=== PATIENT | male | born 1990 | race Caucasian/White ===

== ENCOUNTER 2018-02-18 15:14 | Emergency (ER) | payer OTHER, MEDICARE, SELFPAY ==
[2018-02-18 15:15] VITALS: BP 136/86; PULSE 75; RESP 18; TEMP 37.1; O2SAT 100; BMI 34.3
--- NOTE | 2018-02-18 16:18 | NURSING ---
triage nurse called [facility] for drug screening, due to this case of possible bed bug bite, no drug test needed per [facility].
--- NOTE | 2018-02-18 16:52 | ED.DCSUM_ITS ---
- ER Visit Summary Date of Service: 02/18/18 Chief Complaint: Bug bite History of Present Illness: The patient is a 27 M presenting for evaluation due to a possible bug bite. 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 Patient states that within the last 24 hours he started to notice a red raised itchy rash on the dorsum of his left foot. Denies any infectious signs or symptoms. Patient's medical history only includes psychiatric disease. Patient denies any history of diabetes or fevers associated with this. Physical Examination: Physical exam unremarkable exam for examination of the left foot. Dorsum of the foot shows approximately a 1 cm circular raised erythematous rash that is blanching and nontender with no evidence of streaking induration or fluctuance. Test Results: None indicated Emergency Department Course and Treatment: Patient presented for evaluation secondary to a rash and concern for bug bite. While this does seem potentially consistent with a bug bite or a bedbug bite, cannot totally be sure. There is no evidence of underlying infection. Patient was recommended on conservative management with cortisone or Benadryl cream. Disposition: Discharge Impression: 1. Bug bite left foot This note was generated with [employer] dictation software. It may contain incorrect words, spelling, and punctuation that were not noted in review of the chart prior to signing ED Disposition - Plan for ED Patient: Disposition: Home or Assisted Living Chief Complaint: Bite Diagnosis: Bug bite Instructions: ED Bite Insect Referrals: [facility] [GROUP OF PHYSICIANS] - As Needed
== END 2018-02-18 17:15 | disposition home or self-care (01) ==
LOC: ED 17:01
PROVIDERS: Emergency Provider Emergency Medicine; Family Provider Family Medicine; PCP Family Medicine
DX: S90.862A Insect bite (nonvenomous), left foot, initial encounter (principal); W57.XXXA Bitten or stung by nonvenomous insect and other nonvenomous arthropods, initial encounter; Y93.9 Activity, unspecified; Y92.008 Other place in unspecified non-institutional (private) residence as the place of occurrence of the external cause; Y99.0 Civilian activity done for income or pay
CPT/HCPCS: 99282

== ENCOUNTER → 2018-05-17 11:26 | Outpatient (CLI) | payer MEDICARE, SELFPAY ==
[2018-05-17 12:13] LABS: Hematocrit 44.4 % (40-54); Mean Corp Hgb Conc 33.8 g/gl (32-36); Mean Corpuscular Hgb 29.8 pg (27.0-32.0); Mean Corpuscular Volume 88.1 fL (80-94); Mean Platelet Vol. 10.2 fl (6.2-12.0); Platelet Count 226 K/mm3 (150-450); RBC Distribution Width CV 12.4 % (11.6-14.6); RBC Distribution Width SD 39.7 fl (35.1-43.9); Red Blood Count 5.04 M/mm3 (4.6-6.2); Scan Indicated on CBC? Y/N NO
[2018-05-17 12:56] LABS: ALB/GLOB Ratio 1.3 RATIO (0.9-2.4); AST(SGOT) 26 U/L (15-37); Alanine Aminotransfer ALT/SGPT 57 U/L (16-61); Albumin, Serum 4.2 g/dL (3.2-5.0); Alkaline Phosphatase 102 U/L (45-117); Anion Gap 5 (5-15); BUN 10 mg/dL (7-18); BUN/Creat Ratio 7.4 RATIO (10-20); Calcium,Total 8.7 mg/dL (8.5-10.1); Chloride 108 mmol/L (98-107); Creatinine, Serum 1.35 mg/dL (0.70-1.30); EST Glomerular Filtration Rate 66 mL/min (>60); Est Glom Filt Rate - Afr Amer 80 mL/min (>60); Globulin 3.3 g/dL (2.2-4.2); Glucose 86 mg/dL (74-106); Potassium 3.7 mmol/L (3.5-5.1); Protein, Total 7.5 g/dL (6.4-8.2); Sodium Level 142 mmol/L (136-145); Thyroid Stim Hormone (TSH) 2.26 uIU/mL (0.358-3.74)
== END ==
PROVIDERS: Family Provider Family Medicine; PCP Family Medicine; Visit Provider Psychiatry & Neurology Psychiatry
DX: Z79.899 Other long term (current) drug therapy (principal)
CPT/HCPCS: 36415; 80053; 80178; 84443; 85027

== ENCOUNTER → 2019-02-02 09:30 | Outpatient (CLI) | payer MEDICARE, SELFPAY ==
[2018-02-23 10:15] VITALS: BMI 34.2
[2019-02-02 11:07] LABS: Albumin, Serum 4.2 g/dL (3.2-5.0); BUN 11 mg/dL (7-18); EST Glomerular Filtration Rate 94 mL/min (>60); Est Glom Filt Rate - Afr Amer 113 mL/min (>60); Glucose 88 mg/dL (74-106); Protein, Total 7.2 g/dL (6.4-8.2)
[2019-02-02 11:08] LABS: ALB/GLOB Ratio 1.4 RATIO (0.9-2.4); AST(SGOT) 25 U/L (15-37); Alanine Aminotransfer ALT/SGPT 47 U/L (16-61); Alkaline Phosphatase 107 U/L (45-117); Anion Gap 7 (5-15); Calcium,Total 8.9 mg/dL (8.5-10.1); Chloride 111 mmol/L (98-107); Potassium 3.8 mmol/L (3.5-5.1); Sodium Level 144 mmol/L (136-145); Thyroid Stim Hormone (TSH) 1.78 uIU/mL (0.358-3.74)
== END ==
PROVIDERS: Family Provider Family Medicine; PCP Family Medicine; Referring Provider Registered Nurse; Visit Provider Registered Nurse
DX: F31.64 Bipolar disorder, current episode mixed, severe, with psychotic features (principal); Z79.899 Other long term (current) drug therapy
CPT/HCPCS: 36415; 80053; 80178; 84443

== ENCOUNTER → 2019-04-25 09:13 | Outpatient (CLI) | payer MEDICARE, SELFPAY ==
[2019-04-25 10:39] LABS: Vitamin D,25 Hydroxy 19.9 ng/mL (29.95-100.01)
[2019-04-25 10:46] LABS: ALB/GLOB Ratio 1.2 RATIO (0.9-2.4); AST(SGOT) 17 U/L (15-37); Alanine Aminotransfer ALT/SGPT 34 U/L (16-61); Alkaline Phosphatase 103 U/L (45-117); Anion Gap 7 (5-15); BUN 13 mg/dL (7-18); BUN/Creat Ratio 13.3 RATIO (10-20); Calcium,Total 9.1 mg/dL (8.5-10.1); Chloride 109 mmol/L (98-107); Creatinine, Serum 0.98 mg/dL (0.70-1.30); EST Glomerular Filtration Rate 96 mL/min (>60); Est Glom Filt Rate - Afr Amer 116 mL/min (>60); Globulin 3.3 g/dL (2.2-4.2); Glucose 91 mg/dL (74-106); Potassium 4.1 mmol/L (3.5-5.1); Protein, Total 7.3 g/dL (6.4-8.2); Sodium Level 142 mmol/L (136-145); Thyroid Stim Hormone (TSH) 2.15 uIU/mL (0.358-3.74)
== END ==
PROVIDERS: Family Provider Family Medicine; PCP Family Medicine; Referring Provider Registered Nurse; Visit Provider Registered Nurse
DX: F31.63 Bipolar disorder, current episode mixed, severe, without psychotic features (principal); Z79.899 Other long term (current) drug therapy
CPT/HCPCS: 36415; 80053; 80178; 82306; 84443

== ENCOUNTER 2019-10-15 18:09 | Emergency (ER) | payer MEDICARE, SELFPAY ==
[2019-10-15 18:10] VITALS: BP 143/80; PULSE 74; RESP 16; TEMP 36.6; O2SAT 99; BMI 35.9
--- NOTE | 2019-10-15 19:47 | ED.VIS.GEN ---
History of Present Illness Informant: Patient Narrative: 29-year-old male presents with dental pain. Patient states that he began to have pain 2 days ago. He states that pain is in his right lower jaw. States that he was told he needs a root canal but is unable to afford it. He states that he will get insurance at the beginning of the year. Has been taking tylenol and ibuprofen without much relief. Denies any fever. <Jun Alfonso - Last Filed: 10/15/19 20:05> <Johnna Woodard - Last Filed: 10/21/19 10:49> Chief Complaint: Dental Past Medical History Smoking Status: Current every day smoker <Jun Alfonso - Last Filed: 10/15/19 20:05> Past Medical History: - - Bipolar disorder Surgical History: noncontributory <Johnna Woodard - Last Filed: 10/21/19 10:49> - Allergies and Home Meds Allergies/Adverse Reactions: Allergies lamotrigine [From Lamictal] Adverse Reaction (Verified 10/15/19 18:11) Rash Primary Care Physician: Seven Hagan DO [Primary Care Provider] - 3-5 Days Review of Systems General: Denies: Chills, Fever Eyes: Denies: Visual changes - bilaterally ENT: Reports: - - Dental pain. Denies: Bilateral ear pain Gastrointestinal: Denies: Nausea, Vomiting Musculoskeletal: Denies: Neck pain <Jun Alfonso - Last Filed: 10/15/19 20:05> Neurological: Denies: Headache Psych: Denies: Depression, Anxiety <Johnna Woodard - Last Filed: 10/21/19 10:49> Physical Exam Vital Signs/Narrative: Vital Signs Temp Pulse Resp BP Pulse Ox 10/15/19 18:10 97.8 F 74 16 143/80 H 99 General: Well nourished, Well developed Head: Normocephalic Eyes: Perrl ENT: - - Patient has a dental carry in his second to last lower posterior right molar. No fluctuance or sign of abscess. No facial swelling Cardiovascular: Regular rate, Regular rhythm Respiratory: No distress, CTA bilaterally Abdomen: Soft, Nontender Skin: Normal color. Negative for: Rash <Jun Alfonso - Last Filed: 10/15/19 20:05> Inital Vital Signs reviewed: Yes ENT: - Psychological: Normal affect. Negative for: Agitated <Johnna Woodard - Last Filed: 10/21/19 10:49> Diagnostic/Tx/Re-eval - Medical Decision Making Patient was evaluated for dental pain. Appears well and nontoxic. Does have a dental carry on his right lower jaw. States that he is been having severe pain has been using Tylenol ibuprofen. Patient will be treated with naproxen and penicillin vk. Informed to stop taking ibuprofen. Offered dental block. Alveolar block was obtained with 3 cc of Marcaine. Patient had some relief of his symptoms. Given multiple dental referrals and prescriptions for naproxen and Pen-Vee K <Jun Alfonso - Last Filed: 10/15/19 20:05> - Medical Decision Making Patient evaluated by myself independent of resident and HPI and ROS performed separately. Agree with above. Patient is presenting with worsening dental pain. No drooling, vocal changes or facial swelling. No signs of Jason's angina or abscess. Dental block performed by Dr. Alfonso and patient started on NSAID and pen VK. Counseled on signs and symptoms requiring return to the ED. Counseled on importance of outpatient follow up. Patient verbalized agreement and understanding with this plan and was discharged home in stable and improved condition. <Johnna Woodard - Last Filed: 10/21/19 10:49> ED Disposition <Jun Alfonso - Last Filed: 10/15/19 20:05> <Johnna Woodard - Last Filed: 10/21/19 10:49> - Plan for ED Patient: Disposition: Home or Assisted Living Diagnosis: Dental caries Instructions: Dental Cavity Prescriptions: Naproxen [Naprosyn] 500 mg PO BID PRN #20 tab Prescription Printed Penicillin Vk [Pen-Vee K 250MG] 500 mg PO 4X/DAY #40 tab Prescription Printed Referrals: Seven Hagan DO [Primary Care Provider] - 3-5 Days
[2019-10-15] MEDS: Penicillin Vk 250 MG Tablet 500 MG PO (19:56)
[2019-10-15 20:17] VITALS: BP 138/77; PULSE 82; RESP 16; O2SAT 97
== END 2019-10-15 20:18 | disposition home or self-care (01) ==
PROVIDERS: Emergency Provider Emergency Medicine; Family Provider Family Medicine; PCP Family Medicine
DX: K02.9 Dental caries, unspecified (principal)
CPT/HCPCS: 99283

== ENCOUNTER → 2020-02-02 09:10 | Outpatient (CLI) | payer MEDICARE, SELFPAY ==
[2020-02-02 10:07] LABS: ALB/GLOB Ratio 1.3 RATIO (0.9-2.4); AST(SGOT) 17 U/L (15-37); Alanine Aminotransfer ALT/SGPT 34 U/L (16-61); Albumin, Serum 4.3 g/dL (3.2-5.0); Alkaline Phosphatase 103 U/L (45-117); Anion Gap 5 (5-15); BUN 14 mg/dL (7-18); BUN/Creat Ratio 13.3 RATIO (10-20); Calcium,Total 9.2 mg/dL (8.5-10.1); Chloride 109 mmol/L (98-107); Creatinine, Serum 1.05 mg/dL (0.70-1.30); EST Glomerular Filtration Rate 88 mL/min (>60); Est Glom Filt Rate - Afr Amer 106 mL/min (>60); Globulin 3.4 g/dL (2.2-4.2); Glucose 91 mg/dL (74-106); Potassium 3.9 mmol/L (3.5-5.1); Protein, Total 7.7 g/dL (6.4-8.2); Sodium Level 140 mmol/L (136-145); Thyroid Stim Hormone (TSH) 1.66 uIU/mL (0.358-3.74)
[2020-02-02 11:03] LABS: Vitamin D,25 Hydroxy 23.9 ng/mL
== END ==
PROVIDERS: PCP Family Medicine; Referring Provider Registered Nurse; Visit Provider Registered Nurse
DX: F31.63 Bipolar disorder, current episode mixed, severe, without psychotic features (principal); E55.9 Vitamin D deficiency, unspecified
CPT/HCPCS: 36415; 80053; 80178; 82306; 84443

== ENCOUNTER → 2020-04-09 10:29 | Outpatient (CLI) | payer MEDICARE, SELFPAY ==
[2020-04-12 17:58] LABS: SAR-COV-2 IGG ANTIBODY Negative (Negative); SAR-COV-2 IGM ANTIBODY Negative (Negative)
== END ==
PROVIDERS: PCP Family Medicine; Referring Provider Family Medicine; Visit Provider Family Medicine
DX: Z20.828 Contact with and (suspected) exposure to other viral communicable diseases (principal)
CPT/HCPCS: 36415; 82784; 86769; G2023

== ENCOUNTER → 2020-04-16 10:20 | Outpatient (CLI) | payer MEDICARE, SELFPAY ==
[2020-04-16 11:18] LABS: Erythrocyte Sedimentation Rate 2 mm/hr (0-15)
[2020-04-16 11:20] LABS: Absolute Lymphocyte Count 1.46 X10^3/uL (0.83-4.51); Absolute Neutrophil Count 6.3 X10^3/uL (2.0-7.7); Basophil# 0.08 X10^3/uL; Basophil% 0.9 % (0-1); Eosinophil# 0.15 X10^3/uL; Eosinophils% 1.8 % (0-5); Hematocrit 43.3 % (40-54); Hemoglobin 14.6 g/dL (13.0-16.5); Lymphocyte # 1.46 X10^3/ul (4.0); Lymphocyte % 17.1 % (19-41); Mean Corp Hgb Conc 33.7 g/dL (32-36); Mean Corpuscular Hgb 29.9 pg (27.0-32.0); Mean Corpuscular Volume 88.7 fL (80-94); Mean Platelet Vol. 10.7 fl (6.2-12.0); Monocyte# 0.38 X10^3/uL; Monocyte% 4.4 % (0-10); NRBC Flagged by Analyzer 0 % (0-5); Neutrophil # 6.33 X10^3/uL (2.7-7.7); Neutrophil % 74.2 % (47-70); Platelet Count 214 K/mm3 (150-450); RBC Distribution Width CV 11.9 % (11.6-14.6); RBC Distribution Width SD 38.5 fl (35.1-43.9); Red Blood Count 4.88 M/mm3 (4.6-6.2); White Blood Count 8.5 K/mm3 (4.4-11.0)
[2020-04-16 11:25] LABS: CRP < 2.90 mg/L (0.0-3.0)
[2020-04-17 20:07] LABS: Endomysial Antibody IgA Negative (Negative)
[2020-04-18 00:39] LABS: Immunoglobulin A 144 mg/dL (90-386); t-Transglutaminase IgA <2 U/mL (0-3)
== END ==
PROVIDERS: PCP Family Medicine; Referring Provider Family Medicine; Visit Provider Family Medicine
DX: R10.9 Unspecified abdominal pain (principal)
CPT/HCPCS: 36415; 82784; 83516; 85025; 85652; 86140; 86255

== ENCOUNTER → 2020-06-18 09:11 | Outpatient (CLI) | payer MEDICARE, SELFPAY ==
[2020-06-18 10:43] LABS: ALB/GLOB Ratio 1.3 RATIO (0.9-2.4); AST(SGOT) 18 U/L (15-37); Alanine Aminotransfer ALT/SGPT 43 U/L (16-61); Albumin, Serum 4.4 g/dL (3.2-5.0); Alkaline Phosphatase 108 U/L (45-117); Anion Gap 4 (5-15); BUN 12 mg/dL (7-18); BUN/Creat Ratio 13.1 RATIO (10-20); Calcium,Total 9.2 mg/dL (8.5-10.1); Chloride 112 mmol/L (98-107); Creatinine, Serum 0.92 mg/dL (0.70-1.30); EST Glomerular Filtration Rate 102 mL/min (>60); Est Glom Filt Rate - Afr Amer 123 mL/min (>60); Globulin 3.4 g/dL (2.2-4.2); Glucose 99 mg/dL (74-106); Potassium 3.8 mmol/L (3.5-5.1); Protein, Total 7.8 g/dL (6.4-8.2); Sodium Level 141 mmol/L (136-145); Thyroid Stim Hormone (TSH) 2.41 uIU/mL (0.358-3.74)
[2020-06-19 13:42] LABS: Vitamin D,25 Hydroxy 50.3 ng/mL
== END ==
PROVIDERS: PCP Family Medicine; Referring Provider Registered Nurse; Visit Provider Registered Nurse
DX: E55.9 Vitamin D deficiency, unspecified (principal); F31.63 Bipolar disorder, current episode mixed, severe, without psychotic features
CPT/HCPCS: 36415; 80053; 80178; 82306; 84443

== ENCOUNTER → 2020-09-13 09:30 | Outpatient (CLI) | payer MEDICARE, SELFPAY | PROVIDERS: PCP Family Medicine; Referring Provider Family Medicine; Visit Provider Family Medicine | DX: Z11.59 Encounter for screening for other viral diseases (principal) | CPT/HCPCS: 87635; C9803; U0003 ==

== ENCOUNTER 2020-09-18 16:32 | Emergency (ER) | payer MEDICARE, SELFPAY ==
[2020-09-18 16:32] VITALS: BP 149/86; PULSE 82; RESP 16; TEMP 36.3; O2SAT 100; BMI 35.9
--- NOTE | 2020-09-18 17:42 | EKG12_ITS ---
Test Reason : CP Blood Pressure : / mmHG Vent. Rate : 075 BPM Atrial Rate : 075 BPM P-R Int : 186 ms QRS Dur : 098 ms QT Int : 380 ms P-R-T Axes : 045 055 050 degrees QTc Int : 424 ms Normal sinus rhythm Normal ECG Confirmed by ML MAYS, SHIREEN ([id number]), metropolitan editor JAZMÍN JASSO ([id number]) on 09/23/2020 12:33:53 PM Referred By: LOUIE Confirmed By:SHIREEN BULL MD
[2020-09-18] MEDS: Aspirin 81 MG TAB.CHEW 324 MG PO (18:25)
--- NOTE | 2020-09-18 18:34 | ED.DCSUM_ITS ---
- ER Visit Summary Date of Service: 09/18/20 Chief Complaint: Chest pain History of Present Illness: The patient is a 30 M who presents with chest pain that has been waxing and waning over the past 2 weeks. Patient states the pain is over the left upper chest area. Patient states nothing makes it better or worse. Patient states at times he feels short of breath. Patient also admits to a cough. Patient denies any nausea or vomiting. Patient denies any diaphoresis. Patient admits to some acid reflux symptoms. Patient also admits to some intermittent lightheadedness and dizziness. Patient states he had a recent Covid test which was negative. Patient denies any cardiac or PE risk factors. Patient states his psychiatrist was concerned that it could possibly be from his lithium. Physical Examination: Vital signs are stable. Patient is afebrile. Patient is in no acute distress. Oral mucosa is pink and moist. Neck is supple. Trachea is midline. There is no JVD noted. Heart was regular rate and rhythm. Lungs are clear and equal bilaterally. Abdomen is soft. Bowel sounds are normal. There is no tenderness. There is no rebound or guarding noted. Skin is warm dry. Cranial nerves II through XII are intact. There are no focal motor or sensory deficits noted. Extremities are intact. There is no calf tenderness or edema. Test Results: EKG shows normal sinus rhythm with a rate of 75. There are no acute ST or T wave changes. This was unchanged compared to previous EKG dated 01/05/2007. CBC, basic metabolic profile, and troponin were obtained and were within normal limits. [place] level was obtained and was therapeutic at 0.8. Emergency Department Course and Treatment: Patient was given aspirin. Patient is feeling better on reevaluation. Patient was advised of his findings. Mor ortega has a HEART score of 1. Patient was advised that this is low risk for acute cardiac event. Patient was instructed to follow-up with his primary care physician in 5 to 7 days. Patient understood and was agreeable with the plan. All questions were answered. Disposition: Discharge home Impression: Chest pain This note was generated with [employer] dictation software. It may contain incorrect words, spelling, and punctuation that were not noted in review of the chart prior to signing ED Disposition - Plan for ED Patient: Disposition: Home or Assisted Living Diagnosis: Chest pain of uncertain etiology Instructions: ED Chest Pain Atypical Unkn Cause Referrals: Seven Hagan DO [Primary Care Provider] - 5-7 Days
[2020-09-18 18:35] VITALS: BP 144/92; PULSE 69; RESP 16; O2SAT 100
--- NOTE | 2020-09-18 18:40 | RAD_ITS ---
STUDY: X-RAY CHEST REASON FOR EXAM: Male, 30 years old. CHEST PAIN X 2 WEEKS TECHNIQUE: Single AP portable view of the chest. COMPARISON: None. FINDINGS: The lungs are clear and expanded. There is no demonstrated pleural abnormality. Normal size heart. Normal mediastinum and phillip. Normal visualized pulmonary arteries. Normal visualized aortic arch and descending thoracic aorta. Normal visualized thoracic spine. Normal visualized ribs, clavicles, and shoulders. There is no demonstrated abnormality of the visualized soft tissue structures of the upper abdomen. RAD/Chest 1 View (Portable) IMPRESSION: Normal x-ray examination of the chest. Electronically Signed: Kallie Suarez MD at 19:08 EDT Tel , Service support ,
[2020-09-18 18:51] LABS: Absolute Lymphocyte Count 2.04 X10^3/uL (0.83-4.51); Absolute Neutrophil Count 6.9 X10^3/uL (2.0-7.7); Basophil# 0.08 X10^3/uL; Basophil% 0.8 % (0-1); Eosinophil# 0.23 X10^3/uL; Eosinophils% 2.3 % (0-5); Hematocrit 41.9 % (40-54); Hemoglobin 14.1 g/dL (13.0-16.5); Lymphocyte # 2.04 X10^3/ul (4.0); Lymphocyte % 20.6 % (19-41); Mean Corp Hgb Conc 33.7 g/dL (32-36); Mean Corpuscular Hgb 30.5 pg (27.0-32.0); Mean Corpuscular Volume 90.7 fL (80-94); Mean Platelet Vol. 10.4 fl (6.2-12.0); Monocyte# 0.59 X10^3/uL; NRBC Flagged by Analyzer 0 % (0-5); Neutrophil # 6.85 X10^3/uL (2.7-7.7); Neutrophil % 69.2 % (47-70); Platelet Count 253 K/mm3 (150-450); RBC Distribution Width CV 11.9 % (11.6-14.6); RBC Distribution Width SD 39.2 fl (35.1-43.9); Red Blood Count 4.62 M/mm3 (4.6-6.2); White Blood Count 9.9 K/mm3 (4.4-11.0)
[2020-09-18 19:23] LABS: Anion Gap 4 (5-15); BUN 9 mg/dL (7-18); BUN/Creat Ratio 8.7 RATIO (10-20); Calcium,Total 8.7 mg/dL (8.5-10.1); Chloride 108 mmol/L (98-107); Creatinine, Serum 1.04 mg/dL (0.70-1.30); EST Glomerular Filtration Rate 88 mL/min (>60); Est Glom Filt Rate - Afr Amer 107 mL/min (>60); Estimated Creatinine Clearance 106.26 ml/min; Glucose 94 mg/dL (74-106); Potassium 3.6 mmol/L (3.5-5.1); Sodium Level 140 mmol/L (136-145)
[2020-09-18 20:10] VITALS: BP 143/84; PULSE 66; RESP 17
[2020-09-18 21:35] VITALS: BP 143/84; PULSE 66; RESP 17; O2SAT 100
== END 2020-09-18 21:36 | disposition home or self-care (01) ==
PROVIDERS: Emergency Provider Emergency Medicine; PCP Family Medicine
DX: R07.9 Chest pain, unspecified (principal); K21.9 Gastro-esophageal reflux disease without esophagitis; R05 Cough; R06.02 Shortness of breath; R42 Dizziness and giddiness
CPT/HCPCS: 71045; 80048; 80178; 84484; 85025; 93005; 99284

== ENCOUNTER → 2021-03-06 09:15 | Outpatient (CLI) | payer MEDICARE, SELFPAY ==
[2021-03-06 10:46] LABS: Vitamin D,25 Hydroxy 24.6 ng/mL
[2021-03-06 11:09] LABS: ALB/GLOB Ratio 1.2 RATIO (0.9-2.4); AST(SGOT) 21 U/L (15-37); Alanine Aminotransfer ALT/SGPT 50 U/L (16-61); Albumin, Serum 4.3 g/dL (3.2-5.0); Alkaline Phosphatase 114 U/L (45-117); Anion Gap 5 (5-15); BUN 11 mg/dL (7-18); BUN/Creat Ratio 10.7 RATIO (10-20); Calcium,Total 9.5 mg/dL (8.5-10.1); Chloride 106 mmol/L (98-107); Creatinine, Serum 1.03 mg/dL (0.70-1.30); EST Glomerular Filtration Rate 89 mL/min (>60); Est Glom Filt Rate - Afr Amer 108 mL/min (>60); Globulin 3.7 g/dL (2.2-4.2); Glucose 87 mg/dL (74-106); Potassium 3.6 mmol/L (3.5-5.1); Sodium Level 138 mmol/L (136-145); Thyroid Stim Hormone (TSH) 1.87 uIU/mL (0.358-3.74)
== END ==
PROVIDERS: PCP Family Medicine; Visit Provider Registered Nurse
DX: F31.63 Bipolar disorder, current episode mixed, severe, without psychotic features (principal); E55.9 Vitamin D deficiency, unspecified; Z79.899 Other long term (current) drug therapy
CPT/HCPCS: 36415; 80053; 80178; 82306; 84443

== ENCOUNTER 2021-06-26 16:53 | Emergency (ER) | payer MEDICARE, SELFPAY ==
[2021-06-26 16:54] VITALS: BP 155/70; PULSE 96; RESP 16; TEMP 36.5; O2SAT 96; BMI 36.6
--- NOTE | 2021-06-26 17:59 | CT_ITS ---
STUDY: CT CERVICAL SPINE WITHOUT CONTRAST REASON FOR EXAM: Male, 31 years old. Trauma RADIATION DOSAGE (If Supplied By Facility): CTDIvol = ( 24.88 ) mGy, DLP = ( 542.23 ) mGycm TECHNIQUE: High resolution transaxial imaging was performed without contrast material. Sagittal and coronal images were reconstructed. Individualized dose optimization techniques were used for this CT. COMPARISON: None FINDINGS: Normal craniovertebral junction. Normal anterior atlantoaxial articulation. Normal odontoid process. Normal cervical lordosis. Normal vertebral bodies and posterior osseous elements. C2-3: Normal endplates. Normal disc height and morphology. Normal central canal and intervertebral neuroforamina. C3-4: Normal endplates. Normal disc height and morphology. Normal central canal and intervertebral neuroforamina. C4-5: Normal endplates. Normal disc height and morphology. Normal central canal and intervertebral neuroforamina. C5-6: Normal endplates. Normal disc height and morphology. Normal central canal and intervertebral neuroforamina. C6-7: Normal endplates. Normal disc height and morphology. Normal central canal and intervertebral neuroforamina. C7-T1: Normal endplates. Normal disc height and morphology. Normal central canal and intervertebral neuroforamina. Normal visualized soft tissue structures. CT/Spine Cervical without Contras IMPRESSION: Normal unenhanced CT examination of the cervical spine. Electronically Signed: Lauro Adair MD at 18:53 EDT , Service support ,
--- NOTE | 2021-06-26 17:59 | EKG12_ITS ---
Test Reason : FALL Blood Pressure : / mmHG Vent. Rate : 093 BPM Atrial Rate : 093 BPM P-R Int : 200 ms QRS Dur : 104 ms QT Int : 372 ms P-R-T Axes : 051 026 060 degrees QTc Int : 462 ms Normal sinus rhythm Nonspecific T wave abnormality Prolonged QT Abnormal ECG Confirmed by JAYLA MAYS, HANNAH ([id number]), editorial clerk JAZMÍN JASSO ([id number]) on 06/30/2021 10:37:27 AM Referred By: LUIS FERNANDO Confirmed By:DAYTON DICKERSON MD
--- NOTE | 2021-06-26 17:59 | CT_ITS ---
STUDY: CT BRAIN WITHOUT CONTRAST REASON FOR EXAM: Male, 31 years old. Trauma RADIATION DOSAGE (If Supplied By Facility): CTDIvol = ( 44.99 ) mGy, DLP = ( 846.43 ) mGycm TECHNIQUE: Transaxial CT imaging of the brain was performed without administration of intravenous contrast material. Individualized dose optimization techniques were used for this CT. COMPARISON: No relevant priors. FINDINGS: Normal soft tissue structures. Normal calvarium. Normal size ventricles and extra-axial spaces for the patient''s age. Normal white matter tracts of the cerebral hemispheres. Normal basal ganglia and thalami. Normal brainstem. Normal cerebellum. There is no intracranial hemorrhage. There are no findings of an acute ischemic infarction. Normal visualized paranasal sinuses. CT/Brain/Head without Contrast IMPRESSION: Normal unenhanced CT scan of the brain. Electronically Signed: Lauro Adair MD at 18:52 EDT , Service support ,
--- NOTE | 2021-06-26 18:01 | EX.ED.GENINJ ---
HPI History of Present Illness Chief Complaint: Fall Narrative Narrative: 31-year-old male presenting for evaluation after a fall that occurred yesterday. He states that yesterday he was walking up stairs in his house and must of slipped and fallen hitting his head on a table. He states he was knocked out for a few seconds to a few minutes. Patient states that he had to crawl down the stairs because he felt out of it. Today he has been vomiting. To the best of his ability he states its been several times. Patient is a poor informant. He states that he was eating CBD Gummies yesterday and ate more than he usually does. He denies eating some today. He denies other drug use. He states that he does not use alcohol. Patient does relate a history of schizoaffective disorder and is on lithium. Patient complains of head and neck pain as well. [facility] Medical History Hemorrhoids Schizoaffective disorder, bipolar type Home Medications lithium citrate 8 meq PO DAILY 11/18/17 [History Last Taken Unknown] aripiprazole 10 mg tablet 10 mg PO QHS 02/23/18 [History Last Taken Unknown] naproxen 500 mg PO BID PRN #20 tab 10/15/19 [Rx Last Taken Unknown] ondansetron HCl [Zofran] 4 mg PO Q8H PRN #14 tab 06/26/21 [Rx Last Taken Unknown] Allergy/AdvReac Type Severity Reaction Status Date / Time lamotrigine [From Lamictal] AdvReac Rash Verified 06/26/21 16:58 Family History Other Mental health problem auto immune disorder Social History Smoking Status: Never smoker alcohol intake: never ROS ROS ED Constitutional Constitutional ED: Denies chills, fever(s) or sweats Eyes Eyes: Denies blurry vision or change in vision ENT ENT ED: Denies ear pain, rhinorrhea or sore throat Cardiovascular Cardiovascular: Denies chest pain or palpitations Respiratory/Chest Respiratory/Chest: Denies cough or dyspnea Gastrointestinal Gastrointestinal: Reports nausea and vomiting; Denies abdominal pain, constipation or diarrhea Genitourinary Genitourinary ED: Denies dysuria or hematuria Musculoskeletal Musculoskeletal: Reports neck pain Integumentary Denies Abrasions or rash Neurologic Neurologic: Reports headache(s); Denies paresthesias Psychiatric Psychiatric: Denies anxiety or depression Endocrine Endocrinology: Denies polydipsia or polyuria EXAM Physical Exam Const Vital Signs: 06/26/21 16:54 06/26/21 16:56 06/26/21 19:06 Temperature 97.7 F L Temperature Source Temporal Pulse Rate 96 95 Respiratory Rate 16 18 Respiratory Effort Normal Respiratory Depth Normal Respiratory Pattern Normal Blood Pressure 155/70 H 130/64 H Blood Pressure Mean 98 86 Pulse Ox 96 95 Oxygen Delivery Method Room Air Room Air 06/26/21 21:14 06/26/21 22:16 Temperature Temperature Source Pulse Rate 86 84 Respiratory Rate 19 H 16 Respiratory Effort Respiratory Depth Respiratory Pattern Blood Pressure 132/72 H 129/70 H Blood Pressure Mean 92 Pulse Ox 94 94 Oxygen Delivery Method Room Air Positive obese General Appearance ED: NAD Nutritional Appearance: obese HEENT Reports TM's clear atraumatic Tympanic Membrane ED: Yes TM's clear Eyes PERRL and EOMs intact bilaterally Neck General: other Tenderness to palpation of the cervical spine as well as bilateral cervical spinal ocular sure without obvious midline deformity or step-off. Patient has decreased range of motion. Resp normal respiratory effort Cardio regular rhythm Rate: regular rate GI normal to inspection, nondistended, normoactive bowel sounds Back/Spine Negative for no thoracic nor lumbar tenderness Extremity normal to inspection and full ROM Neuro oriented x3 and CN's II-XII intact bilaterally Sensorium / Orientation: alert Psych Psych Narrative: Patient is slow to respond but does answer questions appropriately. Skin no rashes or lesions noted and no wounds MDM MDM MDM Narrative Medical decision making narrative: Patient presenting with head and neck pain after mechanical fall in which he states he slipped and struck his head on the occiput and was knocked out for either minutes or seconds. Patient states he awoke and still felt abnormal and was able to crawl down the stairs. Patient is poor informant either secondary to concussion or because he is intoxicated versus high on CBD Gummies. Patient has no focal neurologic deficits on examination. He does have tenderness to the cervical spine. I obtained CT imaging of the brain and cervical spine which were both negative for acute findings. Lab work shows a leukocytosis of 15.8, hemoglobin 13.5, hematocrit 40.1, platelets 244. Renal function and electrolytes are normal. [place] level is therapeutic. EtOH is negative. Coagulation studies are normal. CPK is 42. On reevaluation patient is now complaining of lower back pain. Given that his chest x-ray on my interpretation shows increased pulmonary markings in the left lower lobe I did obtain CT imaging of the chest abdomen and pelvis at this time. The radiologist does comment on the chest x-ray as nonspecific and states it could be edema, infection, pulmonary hematoma. I did obtain CT of the chest, abdomen, pelvis which shows no acute intrathoracic or intra-abdominal abnormalities. Patient has been up and ambulating and has a stable gait. His confusion/vomiting could be from a concussion or from to many CBD Gummies. Patient was given concussion precautions as well as counseled to discontinue use of too many CBD Gummies. Patient clinically stable for discharge home at this time. Impression: 1. Mechanical fall 2. Ingestion of CBD products 3. Concussion 4. Leukocytosis 5. Nausea vomiting Lab Data Attestation: I reviewed the patient's lab results. Labs: Laboratory Results - last 24 hr 06/26/21 06/26/21 06/26/21 18:05 18:05 18:05 WBC 15.8 H RBC 4.49 L Hgb 13.5 Hct 40.1 MCV 89.3 MCH 30.1 MCHC 33.7 RDW Std Deviation 38.2 RDW Coeff of Monalisa 11.9 Plt Count 244 MPV 9.9 Immature Gran % (Auto) 1.500 H Neut % (Auto) 88.6 H Lymph % (Auto) 6.1 L [place] % (Auto) 3.5 Eos % (Auto) 0.0 Baso % (Auto) 0.3 Absolute Neuts (auto) 14.0 H Absolute Lymphs (auto) 0.96 Nucleated RBC % 0 PT INR APTT Sodium 139 Potassium 3.9 Chloride 106 Carbon Dioxide 23.0 Anion Gap 10 BUN 13 Creatinine 1.15 Estim Creat Clear Calc 95.22 Est GFR (MDRD) Af Amer 95 Est GFR (MDRD) Non-Af 78 BUN/Creatinine Ratio 11.3 Glucose 125 H Calcium 8.9 Total Creatine Kinase Urine Color Urine Clarity Urine pH Ur Specific [place] Urine Protein Urine Glucose (UA) Urine Ketones Urine Occult Blood Urine Nitrite Urine Bilirubin Urine Urobilinogen Ur Leukocyte Esterase Urine RBC Urine WBC Ur Squamous Epith Cells Urine Bacteria Urine Mucus Urine Opiates Screen Urine Methadone Screen Ur Barbiturates Screen Ur Phencyclidine Scrn Ur Amphetamines Screen U Methamphetamin-MDMA U Benzodiazepines Scrn [place] 0.70 Urine Cocaine Screen U Cannabinoids Screen Ur Drug Screen Comment Ethyl Alcohol 4.0 06/26/21 06/26/21 06/26/21 18:05 18:10 20:05 WBC RBC Hgb Hct MCV MCH MCHC RDW Std Deviation RDW Coeff of [place] Plt Count MPV Immature Gran % (Auto) Neut % (Auto) Lymph % (Auto) [place] % (Auto) Eos % (Auto) Baso % (Auto) Absolute Neuts (auto) Absolute Lymphs (auto) Nucleated RBC % PT 14.2 INR 1.2 APTT 28.1 Sodium Potassium Chloride Carbon Dioxide Anion Gap BUN Creatinine Estim Creat Clear Calc Est GFR (MDRD) Af Amer Est GFR (MDRD) Non-Af BUN/Creatinine Ratio Glucose Calcium Total Creatine Kinase 42 Urine Color Urine Clarity Urine pH Ur Specific [place] Urine Protein Urine Glucose (UA) Urine Ketones Urine Occult Blood Urine Nitrite Urine Bilirubin Urine Urobilinogen Ur Leukocyte Esterase Urine RBC Urine WBC Ur Squamous Epith Cells Urine Bacteria Urine Mucus Urine Opiates Screen NEGATIVE Urine Methadone Screen NEGATIVE Ur Barbiturates Screen NEGATIVE Ur Phencyclidine Scrn NEGATIVE Ur Amphetamines Screen NEGATIVE U Methamphetamin-MDMA NEGATIVE U Benzodiazepines Scrn NEGATIVE [place] Urine Cocaine Screen NEGATIVE U Cannabinoids Screen POSITIVE H Ur Drug Screen Comment Ethyl Alcohol 06/26/21 20:05 WBC RBC Hgb Hct MCV MCH MCHC RDW Std Deviation RDW Coeff of [place]isa Plt Count MPV Immature Gran % (Auto) Neut % (Auto) Lymph % (Auto) [place] % (Auto) Eos % (Auto) Baso % (Auto) Absolute Neuts (auto) Absolute Lymphs (auto) Nucleated RBC % PT INR APTT Sodium Potassium Chloride Carbon Dioxide Anion Gap BUN Creatinine Estim Creat Clear Calc Est GFR (MDRD) Af Amer Est GFR (MDRD) Non-Af BUN/Creatinine Ratio Glucose Calcium Total Creatine Kinase Urine Color Yellow Urine Clarity Clear Urine pH 7.0 Ur Specific [place] 1.010 Urine Protein 30 H Urine Glucose (UA) Normal Urine Ketones Negative Urine Occult Blood Negative Urine Nitrite Negative Urine Bilirubin Negative Urine Urobilinogen Normal Ur Leukocyte Esterase Negative Urine RBC 0 SEEN Urine WBC 0-5 SEEN Ur Squamous Epith Cells 0 SEEN Urine Bacteria 0 SEEN Urine Mucus 0 SEEN Urine Opiates Screen Urine Methadone Screen Ur Barbiturates Screen Ur Phencyclidine Scrn Ur Amphetamines Screen U Methamphetamin-MDMA U Benzodiazepines Scrn [place] Urine Cocaine Screen U Cannabinoids Screen Ur Drug Screen Comment Ethyl Alcohol Radiography Diagnostic Testing: Radiology Impression Brain CT 06/26/21 17:59 IMPRESSION: Normal unenhanced CT scan of the brain. Electronically Signed: Lauro Adair MD at 18:52 EDT , Service support , Cervical Spine CT 06/26/21 17:59 IMPRESSION: Normal unenhanced CT examination of the cervical spine. Electronically Signed: Lauro Adair MD at 18:53 EDT , Service support , Chest X-Ray 06/26/21 18:15 IMPRESSION: Increased pulmonary markings and left lower lobe are nonspecific consider edema, infection or pulmonary hematoma. Electronically Signed: Maicol Noguera MD at 18:45 EDT Tel , Service support , Chest/Abdomen/Pelvis CT 06/26/21 19:01 IMPRESSION: Negative CT of the chest, abdomen and pelvis with intravenous contrast. Electronically Signed: Lauro Adair MD at 20:03 EDT , Service support , Discharge Plan Triage Chief Complaint: Fall ED Provider: Toy Garcia Dx/Rx/DC Orders Instructions: ED Back Sprain/Strain, ED Concussion, ED Drug Abuse, ED Fall with Uncertain Cause, ED Neck Sprain or Strain Prescriptions: New ondansetron HCl [Zofran] 4 mg tablet 4 mg PO Q8H PRN (Reason: nausea and vomiting) Qty: 14 RF: 0 No Action lithium citrate 8 MEQ/5 ML solution 8 meq PO DAILY RF: 0 aripiprazole 10 mg tablet 10 mg PO QHS RF: 0 naproxen 500 MG tablet 500 mg PO BID PRN Qty: 20 RF: 0 Primary Care Provider: Seven Hagan Referrals: Seven Hagan DO [Primary Care Provider] - Disposition Disposition: Home, Self Care Discharge Date/Time: 06/26/21 22:26
--- NOTE | 2021-06-26 18:15 | RAD_ITS ---
STUDY: X-RAY CHEST REASON FOR EXAM: Male, 31 years old. Trauma TECHNIQUE: Single frontal view of the chest. COMPARISON: 09/18/2020 FINDINGS: The lungs demonstrate mild increased pulmonary markings over the left lower lobe, nonspecific. There is no demonstrated pleural abnormality. Normal size heart. Normal mediastinum and phillip. Normal visualized pulmonary arteries. Normal visualized aortic arch and descending thoracic aorta. Normal visualized thoracic spine. Normal visualized ribs, clavicles, and shoulders. There is no demonstrated abnormality of the visualized soft tissue structures of the upper abdomen. RAD/Chest 1 View (Portable) IMPRESSION: Increased pulmonary markings and left lower lobe are nonspecific consider edema, infection or pulmonary hematoma. Electronically Signed: Maicol Noguera MD at 18:45 EDT Tel , Service support ,
[2021-06-26] MEDS: Ondansetron 4 MG/2 ML Vial IV (18:26)
[2021-06-26 18:31] LABS: International Normalized Ratio 1.2; Prothrombin Time (Protime)PT. 14.2 SECONDS (11.7-14.9)
[2021-06-26 18:32] LABS: Partial Thromboplast Time 28.1 Seconds (24.1-36.2)
[2021-06-26 18:34] LABS: Absolute Lymphocyte Count 0.96 X10^3/uL (0.83-4.51); Basophil# 0.05 X10^3/uL; Basophil% 0.3 % (0-1); Hematocrit 40.1 % (40-54); Hemoglobin 13.5 g/dL (13.0-16.5); Lymphocyte # 0.96 X10^3/ul (0.83-4.51); Lymphocyte % 6.1 % (19-41); Mean Corp Hgb Conc 33.7 g/dL (32-36); Mean Corpuscular Hgb 30.1 pg (27.0-32.0); Mean Corpuscular Volume 89.3 fL (80-94); Mean Platelet Vol. 9.9 fl (6.2-12.0); Monocyte# 0.55 X10^3/uL; Monocyte% 3.5 % (0-10); NRBC Flagged by Analyzer 0 % (0-5); Neutrophil % 88.6 % (47-70); Platelet Count 244 K/mm3 (150-450); RBC Distribution Width CV 11.9 % (11.6-14.6); RBC Distribution Width SD 38.2 fl (35.1-43.9); Red Blood Count 4.49 M/mm3 (4.6-6.2); White Blood Count 15.8 K/mm3 (4.4-11.0)
[2021-06-26 18:39] LABS: CPK Total, Creatine Kinase 42 U/L (39-308)
[2021-06-26 18:50] LABS: Anion Gap 10 (5-15); BUN 13 mg/dL (7-18); BUN/Creat Ratio 11.3 RATIO (10-20); Calcium,Total 8.9 mg/dL (8.5-10.1); Chloride 106 mmol/L (98-107); Creatinine, Serum 1.15 mg/dL (0.70-1.30); EST Glomerular Filtration Rate 78 mL/min (>60); Est Glom Filt Rate - Afr Amer 95 mL/min (>60); Estimated Creatinine Clearance 95.22 ml/min; Glucose 125 mg/dL (74-106); Potassium 3.9 mmol/L (3.5-5.1); Sodium Level 139 mmol/L (136-145)
--- NOTE | 2021-06-26 19:01 | CT_ITS ---
EXAM: CT CHEST, ABDOMEN AND PELVIS WITH INTRAVENOUS CONTRAST CLINICAL INDICATION: Fall TECHNIQUE: Helically acquired images were obtained of the chest, abdomen and pelvis with intravenous contrast. This CT exam was performed using one or more of the following dose reduction techniques: automated exposure control, adjustment of the mA and/or kV according to patient size, and/or use of iterative reconstruction technique. Tipbit report generation technology utilized. CONTRAST: IV 100mL [id number] COMPARISON: None. FINDINGS: CHEST: LUNGS AND PLEURAL SPACES: Unremarkable. No mass. No consolidation or edema. No pleural effusion or thickening. No pneumothorax. HEART: Unremarkable. Heart size is normal. No pericardial effusion. MEDIASTINUM: Unremarkable. No mediastinal or hilar adenopathy. Esophagus is unremarkable. No hiatal hernia. THYROID: Unremarkable. No thyroid lesions. ABDOMEN: LIVER: Unremarkable. Homogeneous. No focal mass. GALLBLADDER AND BILE DUCTS: Unremarkable. No calcified gallstones. No gallbladder distention or wall edema. No intra- or extrahepatic biliary ductal dilation. PANCREAS: Unremarkable. No focal cystic or solid mass. SPLEEN: Unremarkable. Normal size without focal cystic or solid mass. ADRENALS: Unremarkable. No nodules. KIDNEYS AND URETERS: Unremarkable. Normal renal size and position. No hydronephrosis. STOMACH AND BOWEL: Unremarkable. No stomach or bowel distention. No focal inflammatory change. PELVIS: APPENDIX: No evidence of acute appendicitis. BLADDER: Unremarkable. REPRODUCTIVE: Unremarkable as visualized. No mass. CHEST, ABDOMEN and PELVIS: INTRAPERITONEAL SPACE: Unremarkable. No ascites or other fluid collection. No free air. BONES/JOINTS: Unremarkable. No suspicious lytic or blastic abnormality. SOFT TISSUES: Unremarkable. No discrete abdominal or pelvic wall hernia. VASCULATURE: Unremarkable. Aorta is non-dilated. No aortic dissection. No obvious central pulmonary embolism although this study was not performed with the pulmonary embolism protocol. LYMPH NODES: Unremarkable. No enlarged lymph nodes. CT/CT Chest, Abd, Pel w/Contrast IMPRESSION: Negative CT of the chest, abdomen and pelvis with intravenous contrast. Electronically Signed: Lauro Adair MD at 20:03 EDT , Service support ,
[2021-06-26 19:06] VITALS: BP 130/64; PULSE 95; RESP 18; O2SAT 95
[2021-06-26] MEDS: 0.9% Normal Saline 1,000 ML 999 ML IV (19:07)
[2021-06-26 20:30] LABS: Amphetamine Urine VISTA NEGATIVE (<1000 ng/mL); Barbiturate Urine VISTA NEGATIVE (< 200 ng/mL); Benzodiazepine Urine VISTA NEGATIVE (< 200 ng/mL); Cocaine Urine VISTA NEGATIVE (< 300 ng/mL); Ecstacy Urine VISTA NEGATIVE (< 500 ng/mL); Methadone Urine VISTA NEGATIVE (< 300 ng/mL); PCP Urine VISTA NEGATIVE (< 25 ng/mL); THC Urine VISTA POSITIVE (< 50 ng/mL); Vista UDS pH Range 6
[2021-06-26 21:14] VITALS: BP 132/72; PULSE 86; RESP 19; O2SAT 94
[2021-06-26 21:19] LABS: Bacteria 0 SEEN /hpf (None Seen); Mucous, Urine 0 SEEN /hpf (<or=2+); Red Blood Cells-Urine 0 SEEN /hpf (0-5); Squamous Epithelial Cells - UA 0 SEEN /hpf (0-5)
[2021-06-26 21:27] LABS: Color, Urine Yellow (Yellow); Glucose, Dipstick Normal (Normal); Ketone-Dipstick Negative (Negative); Leukocyte Esterase-Dipstick Negative /ul (Negative); Nitrite-Dipstick Negative (Negative); Occult Blood-Urine Negative /ul (Negative); Protein-Dipstick 30 mg/dl (Negative); Urine Bilirubin Dipstick Negative (Negative); Urine Clarity Clear (Clear); Urine Urobilinogen Normal (Normal)
[2021-06-26 21:43] LABS: White Blood Cells 0-5 SEEN /hpf (0-5)
[2021-06-26 22:16] VITALS: BP 129/70; PULSE 84; RESP 16; O2SAT 94
== END 2021-06-26 22:26 | disposition home or self-care (01) ==
PROVIDERS: Emergency Provider Student in an Organized Health Care Education/Training Program; PCP Family Medicine
DX: S06.0X9A Concussion with loss of consciousness of unspecified duration, initial encounter (principal); D72.829 Elevated white blood cell count, unspecified; F25.0 Schizoaffective disorder, bipolar type; T50.995A Adverse effect of other drugs, medicaments and biological substances, initial encounter; W01.0XXA Fall on same level from slipping, tripping and stumbling without subsequent striking against object, initial encounter; Y93.01 Activity, walking, marching and hiking; Z79.899 Other long term (current) drug therapy
CPT/HCPCS: 70450; 71045; 71260; 72125; 74177; 80048; 80178; 80307; 81001; 82077; 82550; 85025; 85610; 85730; 87426; 93005; 96361; 96374; 99285; J7030; Q9967; A4216; J2405

== ENCOUNTER → 2021-08-19 08:34 | Outpatient (CLI) | payer MEDICARE, SELFPAY | PROVIDERS: PCP Family Medicine; Visit Provider Family Medicine | DX: Z03.818 Encounter for observation for suspected exposure to other biological agents ruled out (principal) | CPT/HCPCS: 87635; U0005; U0003 ==

== ENCOUNTER → 2021-10-21 20:06 | Outpatient (CLI) | payer MEDICARE, MEDICAID, SELFPAY | PROVIDERS: PCP Family Medicine; Referring Provider Family Medicine; Visit Provider Family Medicine | DX: G47.33 Obstructive sleep apnea (adult) (pediatric) (principal) | CPT/HCPCS: 95811 ==

== ENCOUNTER 2022-08-06 12:14 | Inpatient (IN) | payer MEDICARE, MEDICAID, SELFPAY ==
[2022-08-06] VITALS (11 sets, daily range): BP systolic 133–156; BP diastolic 77–100; PULSE 106–120; RESP 13–18; TEMP 36.6–37.1; O2SAT 95–100; BMI 37.2; BMI 34.4
--- NOTE | 2022-08-06 12:35 | EKG12_ITS ---
Test Reason : OD Blood Pressure : / mmHG Vent. Rate : 125 BPM Atrial Rate : 125 BPM P-R Int : 144 ms QRS Dur : 096 ms QT Int : 354 ms P-R-T Axes : 000 012 046 degrees QTc Int : 510 ms Sinus tachycardia Otherwise normal ECG Confirmed by SRAVAN MAYS, SARAH ([id number]), editor & co founder JAZMÍN JASSO ([id number]) on 08/10/2022 10:43:29 AM Referred By: SHEREE Confirmed By:SARAH HINSON MD
--- NOTE | 2022-08-06 12:35 | RAD_ITS ---
STUDY: X-RAY CHEST REASON FOR EXAM: Male, 32 years old. Ams TECHNIQUE: Single AP portable view of the chest. COMPARISON: Comparison is made with prior study dated 06/26/2021. FINDINGS: EKG electrodes are seen. Elevation of the right hemidiaphragm. There is no demonstrated pleural abnormality. Normal size heart. Normal mediastinum and phillip. Normal visualized pulmonary arteries. Normal visualized aortic arch and descending thoracic aorta. Normal visualized thoracic spine. Normal visualized ribs, clavicles, and shoulders. There is no demonstrated abnormality of the visualized soft tissue structures of the upper abdomen. RAD/Chest 1 View (Portable) IMPRESSION: Normal x-ray examination of the chest. Electronically Signed: Davian Cook MD at 13:33 EDT ,
--- NOTE | 2022-08-06 12:37 | CT_ITS ---
STUDY: CT CERVICAL SPINE WITHOUT CONTRAST REASON FOR EXAM: Male, 32 years old. Altered mental status. Overdose. RADIATION DOSAGE (If Supplied By Facility): CTDIvol = ( 30.20 ) mGy, DLP = ( 658.14 ) mGycm TECHNIQUE: High resolution transaxial imaging was performed without contrast material. Sagittal and coronal images were reconstructed. Individualized dose optimization techniques were used for this CT. COMPARISON: Comparison is made with prior study dated 06/26/2021. FINDINGS: Normal craniovertebral junction. Normal anterior atlantoaxial articulation. Normal odontoid process. There is straightening of the normal cervical lordosis. Normal vertebral bodies and posterior osseous elements. C2-3: Normal endplates. Normal disc height and morphology. Normal central canal and intervertebral neuroforamina. C3-4: Normal endplates. Normal disc height and morphology. Normal central canal and intervertebral neuroforamina. C4-5: Normal endplates. Normal disc height and morphology. Normal central canal and intervertebral neuroforamina. C5-6: Normal endplates. Normal disc height and morphology. Normal central canal and intervertebral neuroforamina. C6-7: Normal endplates. Normal disc height and morphology. Normal central canal and intervertebral neuroforamina. C7-T1: Normal endplates. Normal disc height and morphology. Normal central canal and intervertebral neuroforamina. Normal visualized soft tissue structures. CT/Spine Cervical without Contras IMPRESSION: Straightening of the normal cervical lordosis. Electronically Signed: Davian Cook MD at 13:32 EDT ,
--- NOTE | 2022-08-06 12:37 | CT_ITS ---
STUDY: CT BRAIN WITHOUT CONTRAST REASON FOR EXAM: Male, 32 years old. Altered mental status. Overdose. RADIATION DOSAGE (If Supplied By Facility): CTDIvol = ( 44.99 ) mGy, DLP = ( 832.67 ) mGycm TECHNIQUE: Transaxial CT imaging of the brain was performed without administration of intravenous contrast material. Individualized dose optimization techniques were used for this CT. COMPARISON: Comparison is made with prior study 06/26/2021. FINDINGS: Normal soft tissue structures. Normal calvarium. Normal size ventricles and extra-axial spaces for the patient''s age. Normal white matter tracts of the cerebral hemispheres. Normal basal ganglia and thalami. Normal brainstem. Normal cerebellum. There is no intracranial hemorrhage. There are no findings of an acute ischemic infarction. Small retention cyst or polyp in the posterior aspect of the base of the right maxillary sinus. CT/Brain/Head without Contrast IMPRESSION: Normal unenhanced CT scan of the brain. Electronically Signed: Davian Cook MD at 13:31 EDT ,
--- NOTE | 2022-08-06 12:37 | EDS_ITS ---
HPI History of Present Illness Chief Complaint: Overdose Narrative Narrative: 32-year-old male presenting with altered mental status. Apparently he did not call or show up for work today police and EMS were sent to his house. He was found confused. It is reported that he ingested his medications to try and kill himself. When I ask him what he took he states I do not know I just took it. Patient is very sleepy and his speech is slurred. He does awaken to voice and answer some questions. He states that he is not in any pain. PFSH [facility] Medical History Depression GERD (gastroesophageal reflux disease) Hemorrhoids High cholesterol Schizoaffective disorder, bipolar type Tonsillectomy planned Home Medications lithium citrate 8 mEq/5 mL (5 mL) oral solution 8 meq PO DAILY 11/18/17 [History Last Taken Unknown] aripiprazole 10 mg tablet 10 mg PO QHS 02/23/18 [History Last Taken Unknown] naproxen 500 mg tablet 500 mg PO BID PRN #20 tabs 10/15/19 [Rx Last Taken Unknown] ondansetron HCl 4 mg tablet (Zofran) 4 mg PO Q8H PRN nausea and vomiting #14 tabs 06/26/21 [Rx Last Taken Unknown] atorvastatin 20 mg tablet 20 mg PO DAILY 08/06/22 [History Last Taken Unknown] quetiapine 100 mg tablet 100 mg PO DAILY 08/06/22 [History Last Taken Unknown] Allergy/AdvReac Type Severity Reaction Status Date / Time lamotrigine [From Lamictal] AdvReac Rash Verified 08/06/22 12:26 Family History Other Mental health problem auto immune disorder Social History Smoking Status: Never smoker alcohol intake: never ROS ROS ED Review of Systems ROS Unobtainable: due to mental status EXAM Physical Exam Const Vital Signs: 08/06/22 12:15 08/06/22 13:26 08/06/22 14:30 Temperature 97.9 F Temperature Source Oral Pulse Rate 114 H 120 H 114 H Respiratory Rate 16 13 14 Blood Pressure 156/97 H 133/100 H 137/79 H Blood Pressure Mean 116 111 98 Pulse Ox 100 99 95 Oxygen Delivery Method Room Air Room Air Positive well nourished and unkempt General Appearance ED: unkempt; Negative for pallor HEENT Reports moist mucous membranes atraumatic Eyes PERRL and EOMs intact bilaterally General Eye ED: Negative for pale conjunctiva or scleral icterus Chest Wall inspection of chest normal and palpation of chest normal Resp normal respiratory effort Auscultation: Negative for rales, rhonchi or wheezes Cardio Rate: tachycardic GI soft to palpation and non-tender Back/Spine Cervical Spine: Negative for cervical spine tenderness Thoracic Spine / Upper Back: Negative for thoracic spinal tenderness Lumbar Spine / Lower Back: Negative for lumbar spinal tenderness Neuro CN's II-XII intact bilaterally Neuro Narrative: Awakens to voice immediately falls back asleep. Speech is slightly slurred. Sensorium / Orientation: confused Psych Appearance: unkempt Skin General Skin Exam: Negative for jaundice or pallor MDM MDM MDM Narrative Medical decision making narrative: Patient presenting with altered mental status and appears to be confused. He is able to awaken to voice and answer questions. His vital signs are stable although he is slightly tachycardic. No evidence of trauma. The patient is missing a new supply of Seroquel of 100 mg p.o. daily and was dispensed 90 of these. There is also #13 400 mg tablets of Seroquel missing. It is unknown if he took anything else. Blood work is obtained as he has a slight leukocytosis of 15.3. Hemoglobin macular stable. Renal function and electrolytes are within normal limits. CPK was 51. This was checked for unknown downtime. Salicylate is 3.8, acetaminophen less than 2.0, lithium less than 3.0, EtOH 10. Urinalysis negative for infection and urine drug screen shows no drugs. Patient does appear to be more sedated on reevaluation. He does appear to be protecting his airway. He still slightly tachycardic. EKG on my interpretation shows sinus tachycardia with ventricular rate of 125 bpm without signs of dysrhythmia or ischemia. His chest x-ray shows no acute cardiopulmonary process and the radiologist does agree. CT brain and CT cervical spine are negative for acute findings. Going to assume at this point that the most likely that he took was Seroquel. I will speak with the hospitalist for admission given that he is altered. I spoke with his mother who states that he has a history of taking some medication before and he came to her and told her that he wanted to go to the hospital. He was admitted to psychiatric facility at . She states he was taken off all of his psychiatric medications at that point and he came home very aggressive because he was only being treated for anxiety. His medications had to be readjusted. He had not expressed to her that he was suicidal. He will eventually need psychiatric evaluation. Impression: 1. Suicide attempt 2. Leukocytosis 3. Altered mental status 4. Tachycardia Lab Data Labs: Laboratory Results - last 24 hr 08/06/22 08/06/22 08/06/22 12:21 12:21 12:21 WBC 15.3 H RBC 4.95 Hgb 14.9 Hct 42.1 MCV 85.1 MCH 30.1 MCHC 35.4 RDW Std Deviation 36.6 RDW Coeff of Monalisa 11.9 Plt Count 188 MPV 10.5 Immature Gran % (Auto) 0.600 Neut % (Auto) 87.9 H Lymph % (Auto) 4.6 L Surry % (Auto) 6.5 Eos % (Auto) 0.1 Baso % (Auto) 0.3 Absolute Neuts (auto) 13.5 H Absolute Lymphs (auto) 0.70 L Nucleated RBC % 0 Sodium 141 Potassium 3.5 Chloride 107 Carbon Dioxide 24.0 Anion Gap 10 BUN 16 Creatinine 1.22 Estim Creat Clear Calc 88.92 Est GFR (MDRD) Af Amer 88 Est GFR (MDRD) Non-Af 73 BUN/Creatinine Ratio 13.1 Glucose 136 H Calcium 10.2 H Total Creatine Kinase 51 Urine Color Urine Clarity Urine pH Ur Specific Concepcion Urine Protein Urine Glucose (UA) Urine Ketones Urine Occult Blood Urine Nitrite Urine Bilirubin Urine Urobilinogen Ur Leukocyte Esterase Urine RBC Urine WBC Ur Squamous Epith Cells Urine Bacteria Urine Mucus Salicylates 3.8 Urine Opiates Screen Urine Methadone Screen Acetaminophen < 2.0 L Ur Barbiturates Screen Ur Phencyclidine Scrn Ur Amphetamines Screen MDMA (Ecstasy) Screen U Benzodiazepines Scrn Lattimer < 0.20 L Urine Cocaine Screen U Cannabinoids Screen Ur Drug Screen Comment Ethyl Alcohol 10.0 08/06/22 08/06/22 13:50 14:30 WBC RBC Hgb Hct MCV MCH MCHC RDW Std Deviation RDW Coeff of Monalisa Plt Count MPV Immature Gran % (Auto) Neut % (Auto) Lymph % (Auto) Surry % (Auto) Eos % (Auto) Baso % (Auto) Absolute Neuts (auto) Absolute Lymphs (auto) Nucleated RBC % Sodium Potassium Chloride Carbon Dioxide Anion Gap BUN Creatinine Estim Creat Clear Calc Est GFR (MDRD) Af Amer Est GFR (MDRD) Non-Af BUN/Creatinine Ratio Glucose Calcium Total Creatine Kinase Urine Color Yellow Urine Clarity Clear Urine pH 6.0 Ur Specific Concepcion 1.015 Urine Protein 15 H Urine Glucose (UA) Normal Urine Ketones 5 H Urine Occult Blood Negative Urine Nitrite Negative Urine Bilirubin Negative Urine Urobilinogen Normal Ur Leukocyte Esterase Negative Urine RBC 0 SEEN Urine WBC 0 SEEN Ur Squamous Epith Cells 0 SEEN Urine Bacteria 0 SEEN Urine Mucus 0 SEEN Salicylates Urine Opiates Screen NEGATIVE Urine Methadone Screen NEGATIVE Acetaminophen Ur Barbiturates Screen NEGATIVE Ur Phencyclidine Scrn NEGATIVE Ur Amphetamines Screen NEGATIVE MDMA (Ecstasy) Screen NEGATIVE U Benzodiazepines Scrn NEGATIVE [place] Urine Cocaine Screen NEGATIVE U Cannabinoids Screen NEGATIVE Ur Drug Screen Comment Ethyl Alcohol Radiography Diagnostic Testing: Clinical Impression(s) from Imaging Studies Chest X-Ray 08/06/22 12:35 IMPRESSION: Normal x-ray examination of the chest. Electronically Signed: Davian Cook MD at 13:33 EDT , Brain CT 08/06/22 12:37 IMPRESSION: Normal unenhanced CT scan of the brain. Electronically Signed: Davian Cook MD at 13:31 EDT , Cervical Spine CT 08/06/22 12:37 IMPRESSION: Straightening of the normal cervical lordosis. Electronically Signed: Davian Cook MD at 13:32 EDT , Discharge Plan Triage Chief Complaint: Overdose ED Provider: Toy Garcia Dx/Rx/DC Orders Prescriptions: No Action lithium citrate 8 MEQ/5 ML solution 8 meq PO DAILY aripiprazole 10 mg tablet 10 mg PO QHS naproxen 500 MG tablet 500 mg PO BID PRN Qty: 20 0RF ondansetron HCl [Zofran] 4 mg tablet 4 mg PO Q8H PRN (Reason: nausea and vomiting) Qty: 14 0RF atorvastatin 20 mg tablet 20 mg PO DAILY quetiapine 100 mg tablet 100 mg PO DAILY Primary Care Provider: Seven Hagan Referrals: Seven Hagan DO [Primary Care Provider] -
[2022-08-06] MEDS: 0.9% Normal Saline 1,000 ML 999 ML IV ×2 (12:43→17:28)
[2022-08-06 12:48] LABS: Absolute Neutrophil Count 13.5 X10^3/uL (2.0-7.7); Basophil# 0.04 X10^3/uL; Basophil% 0.3 % (0-1); Eosinophil# 0.01 X10^3/uL; Eosinophils% 0.1 % (0-5); Hematocrit 42.1 % (40-54); Hemoglobin 14.9 g/dL (13.0-16.5); Lymphocyte % 4.6 % (19-41); Mean Corp Hgb Conc 35.4 g/dL (32-36); Mean Corpuscular Hgb 30.1 pg (27.0-32.0); Mean Corpuscular Volume 85.1 fL (80-94); Mean Platelet Vol. 10.5 fl (6.2-12.0); Monocyte# 0.99 X10^3/uL; Monocyte% 6.5 % (0-10); NRBC Flagged by Analyzer 0 % (0-5); Neutrophil % 87.9 % (47-70); Platelet Count 188 K/mm3 (150-450); RBC Distribution Width CV 11.9 % (11.6-14.6); RBC Distribution Width SD 36.6 fl (35.1-43.9); Red Blood Count 4.95 M/mm3 (4.6-6.2); White Blood Count 15.3 K/mm3 (4.4-11.0)
[2022-08-06 13:07] LABS: Anion Gap 10 (5-15); BUN 16 mg/dL (7-18); BUN/Creat Ratio 13.1 RATIO (10-20); CPK Total, Creatine Kinase 51 U/L (39-308); Calcium,Total 10.2 mg/dL (8.5-10.1); Chloride 107 mmol/L (98-107); Creatinine, Serum 1.22 mg/dL (0.70-1.30); EST Glomerular Filtration Rate 73 mL/min (>60); Est Glom Filt Rate - Afr Amer 88 mL/min (>60); Estimated Creatinine Clearance 88.92 ml/min; Glucose 136 mg/dL (74-106); Potassium 3.5 mmol/L (3.5-5.1); Sodium Level 141 mmol/L (136-145)
[2022-08-06 13:34] LABS: Acetaminophen (Tylenol) Level < 2.0 ug/mL (10.0-30.0); Lithium < 0.20 mmol/L (0.60-1.20); Salicylate 3.8 mg/dL (2.8-20.0)
[2022-08-06 14:06] LABS: Bacteria 0 SEEN /hpf (None Seen); Mucous, Urine 0 SEEN /hpf (<or=2+); Red Blood Cells-Urine 0 SEEN /hpf (0-5); Squamous Epithelial Cells - UA 0 SEEN /hpf (0-5); White Blood Cells 0 SEEN /hpf (0-5)
[2022-08-06 14:07] LABS: Color, Urine Yellow (Yellow); Glucose, Dipstick Normal (Normal); Ketone-Dipstick 5 mg/dl (Negative); Leukocyte Esterase-Dipstick Negative /ul (Negative); Nitrite-Dipstick Negative (Negative); Occult Blood-Urine Negative /ul (Negative); Protein-Dipstick 15 mg/dl (Negative); Specific Gravity, Urine 1.015 (1.002-1.030); Urine Bilirubin Dipstick Negative (Negative); Urine Clarity Clear (Clear); Urine Urobilinogen Normal (Normal)
[2022-08-06 15:00] LABS: Amphetamine Urine VISTA NEGATIVE (<1000 ng/mL); Barbiturate Urine VISTA NEGATIVE (< 200 ng/mL); Benzodiazepine Urine VISTA NEGATIVE (< 200 ng/mL); Cocaine Urine VISTA NEGATIVE (< 300 ng/mL); Ecstacy Urine VISTA NEGATIVE (< 500 ng/mL); Methadone Urine VISTA NEGATIVE (< 300 ng/mL); PCP Urine VISTA NEGATIVE (< 25 ng/mL); THC Urine VISTA NEGATIVE (< 50 ng/mL); Vista UDS pH Range 6
--- NOTE | 2022-08-06 15:14 | HP.PCM.HOS_ITS ---
HPI - General General Date of Admission: 08/06/22 Date of Service: 08/06/22 Chief Complaint: Overdose HPI Narrative The patient is a 32 y/o M w/ PMHx: Asperger status, MADELYN noncompliant with CPAP, Depression and Anxiety/Schizoaffective disorder, HLD, GERD, Obesity who presents to the [facility] ED on 08/06/22 with history of concern for potential overdose of unclear agents reportedly not calling into work or showing up prompting police and EMS to be sent to his house where he was reportedly confused and did admit to attempt to overdose and kill himself prompting transition to the ED where for evaluation. Patient was noted to be very lethargic, sleepy with slurred speech although was noted to awaken to voice and answer some questions. From discussion with mother during his prior episode he was initially taken off of his mood stabilizers and treated for primarily anxiety with severe anger following prompting significant outpatient medication changes and alterations with improvement over time. Work-up in the ED included T97.9, heart rate 114, BP 156/97 with most recent repeat 1 3779, respiratory rate 16, 100% on room air, CBC with WC of 15.3, hemoglobin 14.9, platelet 188 with left shift and lymphopenia, BMP with glucose 136, calcium 10.2 otherwise not marked appearing, creatinine kinase 51, urinalysis unremarkable, urine drug screen with salicylates 2.8, acetaminophen less than 2, lithium less than 2, ethyl alcohol 10 otherwise not marked appearing, SARS COVID antigen negative, chest x-ray with no acute cardiopulmonary findings, CT of the brain with no acute intracranial finding, CT cervical spine with straightening of the normal cervical lordosis. From review of medications patient is missing a new supply of Seroquel 100 mg tablet daily and was reportedly dispensed 90 of these in addition to #13 4 and a milligram tablets of Seroquel missing but unclear if he took these items. In the ED patient ministered 1 L normal saline bolus. [facility] Medical History (Updated 08/06/22 @ 15:[address] Cindy Ramey MD) Depression with anxiety GERD (gastroesophageal reflux disease) High cholesterol History of suicide attempt Obesity MADELYN (obstructive sleep apnea) Schizoaffective disorder, bipolar type Home Medications lithium citrate 8 mEq/5 mL (5 mL) oral solution 8 meq PO DAILY 11/18/17 [History Last Taken Unknown] aripiprazole 10 mg tablet 10 mg PO QHS 02/23/18 [History Last Taken Unknown] naproxen 500 mg tablet 500 mg PO BID PRN #20 tabs 10/15/19 [Rx Last Taken Unknown] ondansetron HCl 4 mg tablet (Zofran) 4 mg PO Q8H PRN nausea and vomiting #14 tabs 06/26/21 [Rx Last Taken Unknown] atorvastatin 20 mg tablet 20 mg PO DAILY 08/06/22 [History Last Taken Unknown] quetiapine 100 mg tablet 100 mg PO DAILY 08/06/22 [History Last Taken Unknown] Allergy/AdvReac Type Severity Reaction Status Date / Time lamotrigine [From Lamictal] AdvReac Rash Verified 08/06/22 12:26 Family History (Updated 08/06/22 @ 15:[address] Cindy Ramey MD) Mother Anxiety and depression Mental health problem Fibromyalgia Father Scleroderma Sclerosing scleroderma Other auto immune disorder Surgical History History of tonsillectomy and adenoidectomy Social History (Updated 08/06/22 @ 15:[address] Cindy Ramey MD) household members: other details: Lives with a roommate. Smoking Status: Never smoker alcohol intake: never substance use type: does not use ROS Review of Systems ROS Unobtainable: due to encephalopathy Vital Signs Vital Signs Vital Signs: 08/06/22 12:15 08/06/22 13:26 08/06/22 14:30 Temperature 97.9 F Temperature Source Oral Pulse Rate 114 H 120 H 114 H Respiratory Rate 16 13 14 Blood Pressure 156/97 H 133/100 H 137/79 H Blood Pressure Mean 116 111 98 Pulse Ox 100 99 95 Oxygen Delivery Method Room Air Room Air Weight Weight: 259 lb 4.218 oz Body Mass Index (BMI) 37.2 Physical Exam Narrative Physical Examination: General: Awakens to stimuli but not alert, falls back asleep quickly, is lethargic, not able to answer any orientation questions, not able to follow commands, laying in the ED bed, snoring. Skin: Normal color, normal turgor, no icterus, no cyanosis. HEENT: AT/NC, EOMI, PERRLA, dry MM, appropriately maintaining his airway, no carotid bruits or JVD noted. Lungs: Diminished, decreased bases, difficult ascertain sounds given loud referred snoring sounds but no obvious rales, ronchi or wheezing. Heart: Mildly tachycardic with regular rhythm; no gallop, rub audible. Abdomen: Soft, obese, NTTP, ND, mildly hyperactive BS, no HSM. Extremities: No cyanosis, clubbing, or edema. Neurological: Awakens to stimuli but not alert, falls back asleep quickly, is lethargic, not able to answer any orientation questions, not able to follow commands, laying in the ED bed, snoring, cognitive function not baseline intact; pupils equally reactive to light and accommodation, cranial nerves difficult to assess given acute presentation with OD lethargy, moving extremities intermittently in the bed, strength accordingly severely globally decreased. Psychiatric: Affect appears flat, lethargic, overdose with suicide attempt with underlying schizoaffective disorder, depression and anxiety. Results Lab / Micro Data Result Diagrams: 08/06/22 12:21 08/06/22 12:21 Labs: Laboratory Results - last 24 hr 08/06/22 12:21: WBC 15.3 H, RBC 4.95, Hgb 14.9, Hct 42.1, MCV 85.1, MCH 30.1, MCHC 35.4, RDW Std Deviation 36.6, RDW Coeff of Monalisa 11.9, Plt Count 188, MPV 10.5, Immature Gran % (Auto) 0.600, Neut % (Auto) 87.9 H, Lymph % (Auto) 4.6 L, [place] % (Auto) 6.5, Eos % (Auto) 0.1, Baso % (Auto) 0.3, Absolute Neuts (auto) 13.5 H, Absolute Lymphs (auto) 0.70 L, Nucleated RBC % 0 08/06/22 12:21: Sodium 141, Potassium 3.5, Chloride 107, Carbon Dioxide 24.0, Anion Gap 10, BUN 16, Creatinine 1.22, Estim Creat Clear Calc 88.92, Est GFR (MDRD) Af Amer 88, Est GFR (MDRD) Non-Af 73, BUN/Creatinine Ratio 13.1, Glucose 136 H, Calcium 10.2 H, Total Creatine Kinase 51 08/06/22 12:21: Salicylates 3.8, Acetaminophen < 2.0 L, [place] < 0.20 L, Ethyl Alcohol 10.0 08/06/22 13:50: Urine Color Yellow, Urine Clarity Clear, Urine pH 6.0, Ur Specific [place] 1.015, Urine Protein 15 H, Urine Glucose (UA) Normal, Urine Ketones 5 H, Urine Occult Blood Negative, Urine Nitrite Negative, Urine Bilirubin Negative, Urine Urobilinogen Normal, Ur Leukocyte Esterase Negative, Urine RBC 0 SEEN, Urine WBC 0 SEEN, Ur Squamous Epith Cells 0 SEEN, Urine Bacteria 0 SEEN, Urine Mucus 0 SEEN 08/06/22 14:30: Urine Opiates Screen NEGATIVE, Urine Methadone Screen NEGATIVE, Ur Barbiturates Screen NEGATIVE, Ur Phencyclidine Scrn NEGATIVE, Ur Amphetamines Screen NEGATIVE, MDMA (Ecstasy) Screen NEGATIVE, U Benzodiazepines Scrn NEGATIVE, Urine Cocaine Screen NEGATIVE, U Cannabinoids Screen NEGATIVE, Ur Drug Screen Comment Micro: Microbiology 08/06/22 13:00 Nasal Secretion SARS-CoV-2 Antigen (Rapid) - Final Radiology Impression Chest X-Ray 08/06/22 12:35 IMPRESSION: Normal x-ray examination of the chest. Electronically Signed: Davian Cook MD at 13:33 EDT , Brain CT 08/06/22 12:37 IMPRESSION: Normal unenhanced CT scan of the brain. Electronically Signed: Davian Cook MD at 13:31 EDT , Cervical Spine CT 08/06/22 12:37 IMPRESSION: Straightening of the normal cervical lordosis. Electronically Signed: Davian Cook MD at 13:32 EDT , Assessment & Plan Assessment/Plan (1) Suicide attempt by substance overdose: PLAN: Plan The patient is a 32 y/o M w/ PMHx: Asperger status, MADELYN non-complaint with CPAP, Depression and Anxiety/Schizoaffective disorder, HLD, GERD, Obesity who presents to the [facility] ED on 08/06/22 with history of concern for potential overdose of unclear agents reportedly not calling into work or showing up prompting police and EMS to be sent to his house where he was reportedly confused and did admit to attempt to overdose and kill himself prompting transition to the ED where for evaluation. #1. Anxiety and Depression/Schizoaffective disorder with Concern Purpose Overdose, Possible High Quantity Seroquel Infection w/ Hx Prior Suicide attempt: Will admit to PCU, add hepatic profile, maintain on telemetry monitoring, continue closely monitor patient for anticholinergic effects for possible Seroquel overdose including constipation, urinary retention, blurred vision, increased confusion or delirium with continued fall and aspiration precautions, maintain n.p.o. status until clinically improving, monitor for extraparametal side effects, maintain on famotidine IV in the interim, monitor for hematological alterations with repeat CBC in a.m. and will defer any chemoprophylaxis given this concern, monitor blood sugars given risk of notable hyperglycemia and will likely need outpatient thyroid function studies once clinically improved given potential significant intake. #2. Elevated BP without HTN diagnosis: Elevated BP in the ED, improved over time, will monitor, currently NPO status but if ongoing evidence HTN then would need oral regimen addition once appropriate, PRN IV hydralazine. #3. Depression and Anxiety/Schizoaffective disorder: Given lethargy will hold all oral medications, will resume once appropriate and able to ascertain the agent of his overdose although at this point appears seroquel. Crisis consultation will be imperative once improved and medically cleared. #4. Hyperlipidemia: Hold statin given unsafe oral intake. Add back statin once appropriate. #5. GERD: IV famotidine. #6. MADELYN: Non-compliant with CPAP. #7. DVT prophylaxis: Low risk and also holding chemoprophylaxis as noted #1. Charges/Coding Visit Charges OBSV E&M: 12969 Initial observation care L3
--- NOTE | 2022-08-06 15:53 | CM.ED ---
Addendum entered by Luz Marina Cano 08/06/22 17:47: SW asked patient's mother about any cutting behavior which she denied. Mother denied any fights with others and denied patient breaking items. Mother denied any HI and said that patient only voices SI about himself. The last time mother was aware that patient was suicidal was in May as she said we haven't talked that much. Mother said that [facility] took patient off his bipolar medication as they thought his symptoms were related to his Aspberger's diagnosis and anxiety. Mother advised that patient has had no previous attempts. Mother reports that patient had only thoughts previous to today. Patient is not awake yet so SW is unable to complete MSE. Patient presents to ED with serious suicide attempt. Per charting patient did attempt to attempt to overdose and kill himself. Thus, patient needs inpatient psych hospital for medication management and crisis stabilization. MD Garcia in agreement with plan for inpatient psych. Plan: Inpatient psych when patient is medically cleared. Luz Marina CabreraGarcia Original Note: WILL Note Referral Source: Referral Reason: Mental Health Presenting Issue: Patient was brought to [facility] ED on 08/06/22 with history of concern for potential overdose of unclear agents reportedly not calling into work or showing up prompting police and EMS to be sent to his house where he was reportedly confused and did admit to attempt to overdose and kill himself prompting transition to the ED where for evaluation. Patient is currently in PCU awaiting medical clearance. This assessment was completed with the assistance of patient's mother, Rosa Delacruz as patient is currently asleep and unable to answer questions Marital Assessment: Single Identified Gender: Male Sexual Orientation: Heterosexual Living Situation: Resides in an upstairs apartment with a roommate Support: Mother reports that patient has pushed us all away.. he has no one now. Mother said that one week ago patient blocked everyone number and he verbally attacked us all. Mother said that in a group text, concerning braden's father who has tonque cancer, patient was ranting and raving. Mother said that patient would take smaller things and blow them up. SW asked for example and mother said that someone else in the family said htat patient was a narcastic and she said well it runs in the family and patient got mad at her for that. : None Education and Employment: Patient graduated high school. He did not have an IEP in school but in grade school he was diagnosed with Asbergers. 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 Mental Health Treatment: Patient [facility] but she does not know if patient is currently seeing a counselor. Per Mother patient was previously hospitalized 2-3 times with the most recent psych hospitalization at [facility] which was in May or June. Mother said that patient had come to her and stated that he may need to stay with her as he thought he may need to go to hospital. Mother said that after awhile patient said that he needed to go to the hospital and said that his plan was to overdose on gabapentin. Patient previously has been to [facility] (1-2 times per mother). Triggers and Stressors: Patient has alot of triggers.. and is very angry per mother. Patient's father has tongue cancer and it is not looking good per patient's mother. Coping Skills: Mother said that patient has no coping skills. Abuse Issues: Denied by mother Substance Abuse: Denied by mother Risk to Self and Others: Mother voiced that patient in the past has stated he was having thoughts of overdosing in May and was brought to the hospital and then went to psych unit at . Mother said that she was worried as patient has blocked her, his brother, his sister, his grandmother, his uncle and all relatives so she had her brother go check on patient today and yesterday. Yesterday when her brother went to check on patient the car was gone and the door locked. Today, the uncle went to check on patient and the door was unlocked and the car was there. She went over to check on patient and found the door locked and was yelling for patient and then was told by neighbor that the squad took him.
[2022-08-06] MEDS: 0.9% Normal Saline 1,000 ML 150 ML IV (17:28)
[2022-08-06] MEDS: Famotidine 200 MG/20 ML MDV 20 MG in 0.9% Normal Saline (Pres. free 8 ML 300 MG IV (18:04)
[2022-08-06 18:21] LABS: Bedside Glucose 75 mg/dL (74-106)
--- NOTE | 2022-08-06 20:23 | CM.ED ---
WILL called Tresa at [facility] and gave her handoff information. WILL will fax assessment information to Tresa at [facility].
[2022-08-06] MEDS: Dextrose 5%/0.9% NaCl 1,000 ML 125 ML IV (22:52)
[2022-08-06 22:55] LABS: Bedside Glucose 50 mg/dL (74-106)
[2022-08-07] VITALS (8 sets, daily range): BP systolic 107–159; BP diastolic 80–98; PULSE 105–117; RESP 16–18; TEMP 36.5–37; O2SAT 97–100
[2022-08-07 00:35] LABS: Bedside Glucose 101 mg/dL (74-106)
[2022-08-07 03:56] LABS: Bedside Glucose 120 mg/dL (74-106)
[2022-08-07] MEDS: Dextrose 5%/0.9% NaCl 1,000 ML 125 ML IV (06:27)
[2022-08-07 06:33] LABS: Absolute Lymphocyte Count 0.79 X10^3/uL (0.83-4.51); Absolute Neutrophil Count 14.9 X10^3/uL (2.0-7.7); Basophil# 0.06 X10^3/uL; Basophil% 0.4 % (0-1); Eosinophil# 0.05 X10^3/uL; Eosinophils% 0.3 % (0-5); Hematocrit 39.7 % (40-54); Hemoglobin 13.3 g/dL (13.0-16.5); Lymphocyte # 0.79 X10^3/ul (0.83-4.51); Lymphocyte % 4.7 % (19-41); Mean Corp Hgb Conc 33.5 g/dL (32-36); Mean Corpuscular Volume 86.7 fL (80-94); Mean Platelet Vol. 10.2 fl (6.2-12.0); Monocyte# 1.01 X10^3/uL; NRBC Flagged by Analyzer 0 % (0-5); Neutrophil # 14.93 X10^3/uL (2.7-7.7); Neutrophil % 87.8 % (47-70); Platelet Count 192 K/mm3 (150-450); RBC Distribution Width CV 12.4 % (11.6-14.6); RBC Distribution Width SD 38.7 fl (35.1-43.9); Red Blood Count 4.58 M/mm3 (4.6-6.2)
[2022-08-07 06:58] LABS: AST(SGOT) 15 U/L (15-37); Alanine Aminotransfer ALT/SGPT 35 U/L (16-61); Albumin, Serum 3.6 g/dL (3.2-5.0); Alkaline Phosphatase 119 U/L (45-117); Anion Gap 4 (5-15); BUN 10 mg/dL (7-18); BUN/Creat Ratio 8.8 RATIO (10-20); Calcium,Total 9.5 mg/dL (8.5-10.1); Chloride 116 mmol/L (98-107); Creatinine, Serum 1.13 mg/dL (0.70-1.30); EST Glomerular Filtration Rate 79 mL/min (>60); Est Glom Filt Rate - Afr Amer 96 mL/min (>60); Estimated Creatinine Clearance 96.01 ml/min; Globulin 3.5 g/dL (2.2-4.2); Glucose 114 mg/dL (74-106); Potassium 3.7 mmol/L (3.5-5.1); Protein, Total 7.1 g/dL (6.4-8.2); Sodium Level 144 mmol/L (136-145)
[2022-08-07 07:05] LABS: Bedside Glucose 107 mg/dL (74-106)
[2022-08-07] MEDS: 0.9% Saline Lock 10 ML Syringe IV ×3 (09:27→22:36)
[2022-08-07] MEDS: Famotidine 200 MG/20 ML MDV 20 MG in 0.9% Normal Saline (Pres. free 8 ML 300 MG IV (09:27)
--- NOTE | 2022-08-07 10:44 | CM.ED ---
Addendum entered by Luz Marina Cano 08/07/22 10:54: WILL called WILL Felix and inquired if patient is medically clear and she advised patient is not medically clear. Elvira can call this movie writer for update and WILL will work on placement. WILL called emily Villaseñor RN. She advised that patient still is very sleepy with slurred speech. Luz Marina FELICIANO Original Note: WILL called Renetta at [facility] and updated her that patient is still waiting medical clearance. Luz Marina FELICIANO
[2022-08-07 11:05] LABS: Bedside Glucose 69 mg/dL (74-106)
--- NOTE | 2022-08-07 12:08 | PCM.PN.HOSP ---
Documented by User: Felicita Nielson NP, [employer] 08/07/22 12:21 Subjective Subjective Patient seen and examined. Alert, answers some questions appropriately however also rambling incoherently. Patient was noted to be restless this morning. He was bladder scanned at that time for 1800 cc and straight cathed. Sitter at bedside and reports patient has been more comfortable since that time. Objective Data Objective Data Vital Signs: Vital Signs Temp Pulse Resp BP Pulse Ox O2 Del Method 97.7 F L 105 H 16 158/98 H 98 Room Air 08/07/22 09:26 08/07/22 09:26 08/07/22 09:26 08/07/22 09:26 08/07/22 09:08/07/22 09:26 Oxygen Delivery Method Room Air Weight: 240 lb 4.862 oz Body Mass Index (BMI) 34.4 Intake & Output: Intake and Output for Last 24 Hours 08/05/22 08/06/22 08/07/22 23:59 23:59 23:59 Intake Total 2832.5 / 2832.5 1317.92 / 1317.92 Output Total 1650 / 1650 4150 / 4150 Balance 1182.5 / 1182.5 -2832.08 / -2832.08 Lab / Micro Data Result Diagrams: 08/07/22 06:16 08/07/22 06:16 Labs: Laboratory Results - last 24 hr 08/06/22 12:21: WBC 15.3 H, RBC 4.95, Hgb 14.9, Hct 42.1, MCV 85.1, MCH 30.1, MCHC 35.4, RDW Std Deviation 36.6, RDW Coeff of Monalisa 11.9, Plt Count 188, MPV 10.5, Immature Gran % (Auto) 0.600, Neut % (Auto) 87.9 H, Lymph % (Auto) 4.6 L, [place] % (Auto) 6.5, Eos % (Auto) 0.1, Baso % (Auto) 0.3, Absolute Neuts (auto) 13.5 H, Absolute Lymphs (auto) 0.70 L, Nucleated RBC % 0 08/06/22 12:21: Sodium 141, Potassium 3.5, Chloride 107, Carbon Dioxide 24.0, Anion Gap 10, BUN 16, Creatinine 1.22, Estim Creat Clear Calc 88.92, Est GFR (MDRD) Af Amer 88, Est GFR (MDRD) Non-Af 73, BUN/Creatinine Ratio 13.1, Glucose 136 H, Calcium 10.2 H, Total Creatine Kinase 51 08/06/22 12:21: Salicylates 3.8, Acetaminophen < 2.0 L, [place] < 0.20 L, Ethyl Alcohol 10.0 08/06/22 13:50: Urine Color Yellow, Urine Clarity Clear, Urine pH 6.0, Ur Specific [place] 1.015, Urine Protein 15 H, Urine Glucose (UA) Normal, Urine Ketones 5 H, Urine Occult Blood Negative, Urine Nitrite Negative, Urine Bilirubin Negative, Urine Urobilinogen Normal, Ur Leukocyte Esterase Negative, Urine RBC 0 SEEN, Urine WBC 0 SEEN, Ur Squamous Epith Cells 0 SEEN, Urine Bacteria 0 SEEN, Urine Mucus 0 SEEN 08/06/22 14:30: Urine Opiates Screen NEGATIVE, Urine Methadone Screen NEGATIVE, Ur Barbiturates Screen NEGATIVE, Ur Phencyclidine Scrn NEGATIVE, Ur Amphetamines Screen NEGATIVE, MDMA (Ecstasy) Screen NEGATIVE, U Benzodiazepines Scrn NEGATIVE, Urine Cocaine Screen NEGATIVE, U Cannabinoids Screen NEGATIVE, Ur Drug Screen Comment 08/06/22 18:00: POC Glucose 75 08/06/22 22:29: POC Glucose 50 L 08/07/22 00:15: POC Glucose 101 08/07/22 03:33: POC Glucose 120 H 08/07/22 06:16: WBC 17.0 H, RBC 4.58 L, Hgb 13.3, Hct 39.7 L, MCV 86.7, MCH 29.0, MCHC 33.5 D, RDW Std Deviation 38.7, RDW Coeff of [place] 12.4, Plt Count 192, MPV 10.2, Immature Gran % (Auto) 0.800, Neut % (Auto) 87.8 H, Lymph % (Auto) 4.7 L, [place] % (Auto) 6.0, Eos % (Auto) 0.3, Baso % (Auto) 0.4, Absolute Neuts (auto) 14.9 H, Absolute Lymphs (auto) 0.79 L, Nucleated RBC % 0 08/07/22 06:16: Sodium 144, Potassium 3.7, Chloride 116 H, Carbon Dioxide 24.0, Anion Gap 4 L, BUN 10, Creatinine 1.13, Estim Creat Clear Calc 96.01, Est GFR (MDRD) Af Amer 96, Est GFR (MDRD) Non-Af 79, BUN/Creatinine Ratio 8.8 L, Glucose 114 H, Calcium 9.5, Total Bilirubin 0.70, AST 15, ALT 35, Alkaline Phosphatase 119 H, Total Protein 7.1, Albumin 3.6, Globulin 3.5, Albumin/Globulin Ratio 1.0 08/07/22 06:26: POC Glucose 107 H 08/07/22 10:48: POC Glucose 69 L Micro: Microbiology 08/06/22 13:00 Nasal Secretion SARS-CoV-2 Antigen (Rapid) - Final Radiography Diagnostic Testing: Radiology Impression Chest X-Ray 08/06/22 12:35 IMPRESSION: Normal x-ray examination of the chest. Electronically Signed: Davian Cook MD at 13:33 EDT , Brain CT 08/06/22 12:37 IMPRESSION: Normal unenhanced CT scan of the brain. Electronically Signed: Davian Cook MD at 13:31 EDT , Cervical Spine CT 08/06/22 12:37 IMPRESSION: Straightening of the normal cervical lordosis. Electronically Signed: Davian Cook MD at 13:32 EDT , Physical Exam Const alert Orientation / Consciousness: confused HEENT normocephalic Mouth: dry mucous membranes Eyes PERRL, EOMs intact bilaterally and conjunctivae normal Neck no lymphadenopathy Resp normal respiratory effort and clear to auscultation bilaterally Cardio regular rate, regular rhythm and no murmurs Peripheral Pulses: pulses 2+ throughout GI normal to inspection, nondistended, normoactive bowel sounds, non-tender and non-distended Extremity normal to inspection Skin no rashes or lesions noted Lesions: no lesions Rashes: no rashes Trauma: no lacerations or abrasions Neuro CN's II-XII intact bilaterally, no focal motor deficits, no sensory deficits noted and deep tendon reflexes 2+ bilaterally Psych Speech: incoherent and pressured Assessment & Plan Assessment/Plan (1) Suicide attempt by substance overdose: PLAN: Plan 1. Altered mental status with concern for intentional overdose-suspected Seroquel overdose. Previous inpatient psychiatric admission at . Plan for crisis/psychiatric evaluation when medically stable. Mental status improving. Brain CT normal. Sitter at bedside for safety. Tox screen negative. [place] level supratherapeutic. 2. Urinary retention-straight cath x1. Likely related to anticholinergic effects from Seroquel overdose. Monitor for ongoing retention. UA unremarkable. 3. Leukocytosis-suspect reactive/overdose related. UA and chest x-ray unremarkable. Afebrile. 4. Elevated blood pressure without history of hypertension-as needed hydralazine. Ongoing blood pressure monitoring. 5. Depression/anxiety/schizoaffective disorder-on aripiprazole, lithium, quetiapine. Hold Seroquel, resume lithium, aripiprazole. 6. Hyperlipidemia-continue statin. 7. MADELYN-noncompliant with CPAP. DVT prophylaxis-SCDs This patient was seen by ETIENNE Talavera under the supervision of Dr. Martin. Documented by User: Dr. Bunny Martin MD 08/07/22 14:15 Objective Data Lab / Micro Data Result Diagrams: 08/07/22 06:16 08/07/22 06:16 Assessment & Plan Assessment/Plan (1) Suicide attempt by substance overdose: Addt'l Comments This patient was seen in conjunction with ETIENNE Talavera . I have independently interviewed and examined the patient and reviewed pertinent historical, laboratory, and other data. Please refer to ETIENNE Talavera note for details of this patient's presentation, findings, and recommendations. I have reviewed ETIENNE Talavera note and concur with documented findings. In brief, patient is a 32-year-old gentleman with schizoaffective disorder admitted following a suicide attempt with an intentional drug overdose (suspected Seroquel) Physical Examination: GENERAL: Somnolent but arousable HEENT: Atraumatic; EYES; Anicteric, Normal Conjunctiva NECK; supple, normal thyroid, RESPIRATORY: Diminished to auscultation CARDIOVASCULAR: Regular S1 S2, GI: soft, normoactive bowel sounds, : No Renal angle tenderness; EXTREMITIES: No edema, no clubbing, MUSCULOSKELETAL: no muscle wasting NEURO: no lateralizing signs. SKIN: No Rash PSYCH; somnolent Assessment: 1. Acute toxic encephalopathy from intentional drug overdose 2. Intentional drug overdose in an apparent suicide attempt 3. Seasonal affective disorder 4. Dyslipidemia 5. Depression with anxiety 6. Elevated blood pressure 7. Class I obesity with BMI 34.5 8. GERD 9. DVT prophylaxis?low risk Recommendations: 1. I have discussed the results of my overview and impressions with the patient 2. Options for management were reviewed Total time spent by myself and the advanced practice practitioner evaluating patient, reviewing labs, subsequent management decisions, discussion with patient as well as other providers 45 minutes ( 25 of which was spent by myself) Charges/Coding Visit Charges Inpatient E&M: 35685 [facility] L3
[2022-08-07 12:16] LABS: Bedside Glucose 112 mg/dL (74-106)
[2022-08-07] MEDS: LORazepam 2 MG/ML Syringe 1 MG IV (15:25)
[2022-08-07] MEDS: Famotidine 200 MG/20 ML MDV 20 MG in 0.9% Normal Saline (Pres. free 8 ML 330 MG IV (22:35)
[2022-08-07] MEDS: ARIPiprazole 10 MG Tablet PO (22:35)
[2022-08-07] MEDS: Atorvastatin Calcium 20 MG Tablet PO (22:35)
[2022-08-08 03:00] VITALS: BP 150/85; PULSE 105; RESP 18; TEMP 36.6; O2SAT 97
[2022-08-08 07:28] VITALS: O2SAT 94
[2022-08-08 08:12] LABS: Absolute Lymphocyte Count 1.57 X10^3/uL (0.83-4.51); Absolute Neutrophil Count 11.6 X10^3/uL (2.0-7.7); Basophil# 0.08 X10^3/uL; Basophil% 0.5 % (0-1); Eosinophil# 0.26 X10^3/uL; Eosinophils% 1.7 % (0-5); Hematocrit 39.3 % (40-54); Hemoglobin 13.6 g/dL (13.0-16.5); Lymphocyte # 1.57 X10^3/ul (0.83-4.51); Lymphocyte % 10.6 % (19-41); Mean Corp Hgb Conc 34.6 g/dL (32-36); Mean Corpuscular Hgb 29.9 pg (27.0-32.0); Mean Corpuscular Volume 86.4 fL (80-94); Mean Platelet Vol. 10.6 fl (6.2-12.0); Monocyte# 1.25 X10^3/uL; Monocyte% 8.4 % (0-10); NRBC Flagged by Analyzer 0 % (0-5); Neutrophil # 11.58 X10^3/uL (2.7-7.7); Neutrophil % 77.9 % (47-70); Platelet Count 226 K/mm3 (150-450); RBC Distribution Width CV 12.6 % (11.6-14.6); RBC Distribution Width SD 39.7 fl (35.1-43.9); Red Blood Count 4.55 M/mm3 (4.6-6.2); White Blood Count 14.9 K/mm3 (4.4-11.0)
[2022-08-08 08:21] LABS: Anion Gap 9 (5-15); BUN 15 mg/dL (7-18); BUN/Creat Ratio 12.8 RATIO (10-20); Calcium,Total 9.8 mg/dL (8.5-10.1); Chloride 112 mmol/L (98-107); Creatinine, Serum 1.17 mg/dL (0.70-1.30); EST Glomerular Filtration Rate 76 mL/min (>60); Est Glom Filt Rate - Afr Amer 92 mL/min (>60); Estimated Creatinine Clearance 92.72 ml/min; Glucose 91 mg/dL (74-106); Potassium 3.7 mmol/L (3.5-5.1); Sodium Level 144 mmol/L (136-145)
[2022-08-08 09:42] VITALS: BP 136/79; PULSE 93; RESP 14; TEMP 37.7; O2SAT 96
--- NOTE | 2022-08-08 10:48 | PN.HOSP_ITS ---
Documented by User: Felicita Nielson NP, [employer] C[employer] FEEDER-C 08/08/22 10:59 Subjective Subjective Patient seen and examined. Mental status significantly improved. Denies current suicidal thoughts or ideations however does admit to taking a bottle of Seroquel. Remove Ro catheter and complete voiding trial. Objective Data Objective Data Vital Signs: Vital Signs Temp Pulse Resp BP Pulse Ox O2 Del Method 100 F H 93 14 136/79 H 96 Room Air 08/08/22 09:42 08/08/22 09:42 08/08/22 09:42 08/08/22 09:42 08/08/22 09:42 08/08/22 09:49 Oxygen Delivery Method Room Air Weight: 240 lb 4.862 oz Body Mass Index (BMI) 34.4 Intake & Output: Intake and Output for Last 24 Hours 08/06/22 08/07/22 08/08/22 23:59 23:59 23:59 Intake Total 2832.5 / 2832.5 2677.92 / 2677.92 Output Total 1650 / 1650 5875 / 7175 1600 / 1600 Balance 1182.5 / 1182.5 -3197.08 / -4497.08 -1600 / -1600 Lab / Micro Data Result Diagrams: 08/08/22 06:46 08/08/22 06:46 Labs: Laboratory Results - last 24 hr 08/07/22 10:48: POC Glucose 69 L 08/07/22 11:55: POC Glucose 112 H 08/08/22 06:46: WBC 14.9 H, RBC 4.55 L, Hgb 13.6, Hct 39.3 L, MCV 86.4, MCH 29.9, MCHC 34.6, RDW Std Deviation 39.7, RDW Coeff of Monalisa 12.6, Plt Count 226, MPV 10.6, Immature Gran % (Auto) 0.900, Neut % (Auto) 77.9 H, Lymph % (Auto) 10.6 L, Price % (Auto) 8.4, Eos % (Auto) 1.7, Baso % (Auto) 0.5, Absolute Neuts (auto) 11.6 H, Absolute Lymphs (auto) 1.57, Nucleated RBC % 0 08/08/22 06:46: Sodium 144, Potassium 3.7, Chloride 112 H, Carbon Dioxide 23.0, Anion Gap 9, BUN 15, Creatinine 1.17, Estim Creat Clear Calc 92.72, Est GFR (MDRD) Af Amer 92, Est GFR (MDRD) Non-Af 76, BUN/Creatinine Ratio 12.8, Glucose 91, Calcium 9.8 Micro: Microbiology 08/06/22 13:00 Nasal Secretion SARS-CoV-2 Antigen (Rapid) - Final Physical Exam Const alert and oriented x3 HEENT normocephalic and moist oral mucous membranes Eyes PERRL, EOMs intact bilaterally and conjunctivae normal Neck no lymphadenopathy Resp normal respiratory effort and clear to auscultation bilaterally Cardio regular rate, regular rhythm and no murmurs Peripheral Pulses: pulses 2+ throughout GI normal to inspection, nondistended, normoactive bowel sounds, non-tender and non-distended Extremity normal to inspection Skin no rashes or lesions noted Lesions: no lesions Rashes: no rashes Trauma: no lacerations or abrasions Neuro CN's II-XII intact bilaterally, no focal motor deficits, no sensory deficits noted and deep tendon reflexes 2+ bilaterally Psych mental status grossly normal and affect normal Assessment & Plan Assessment/Plan (1) Suicide attempt by substance overdose: PLAN: Plan 1.? Altered mental status with intentional overdose-Seroquel overdose.? Previous inpatient psychiatric admission at .? Plan for crisis/psychiatric evaluation now that patient is medically stable.? Patient is now alert and able to participate in conversation. Admits to taking a bottle of Seroquel.? Brain CT normal.? Sitter at bedside for safety.? Tox screen negative.? 2. Urinary retention-Likely related to anticholinergic effects from Seroquel overdose. UA unremarkable. Remove Ro catheter and complete voiding trial. 3. Leukocytosis-suspect reactive/overdose related.? UA and chest x-ray unremarkable.? Afebrile. 4. Elevated blood pressure without history of hypertension-as needed hydralazine.? Blood pressure now stable. 5. Depression/anxiety/schizoaffective disorder-on aripiprazole, quetiapine.? Hold Seroquel, resume aripiprazole. 6. Hyperlipidemia-continue statin. 7. MADELYN-noncompliant with CPAP. DVT prophylaxis-SCDs Discharge planning: Await crisis evaluation/psychiatric placement. This patient was seen by ETIENNE Talavera under the supervision of Dr. Martin. Documented by User: Dr. Bunny Martin MD 08/08/22 11:12 Objective Data Lab / Micro Data Result Diagrams: 08/08/22 06:46 08/08/22 06:46 Assessment & Plan Assessment/Plan (1) Suicide attempt by substance overdose: Addt'l Comments This patient was seen in conjunction with ETIENNE Talavera .? I have independently interviewed and examined the patient and reviewed pertinent historical, laboratory, and other data.? Please refer to ETIENNE Talavera? note for details of this patient's presentation, findings, and recommendations.? I have reviewed? ETIENNE Talavera ? note and concur? with documented findings. In brief, patient is a 32-year-old gentleman with schizoaffective disorder admitted following a suicide attempt with an intentional drug overdose (suspected Seroquel) 08/08/2022; per nursing staff patient has been sleeping a lot Physical Examination: GENERAL: Somnolent but arousable HEENT: Atraumatic; EYES; Anicteric, Normal Conjunctiva NECK; supple, normal thyroid, RESPIRATORY: Diminished to auscultation CARDIOVASCULAR:? Regular S1 S2, GI:? soft, normoactive bowel sounds, : No Renal angle tenderness; EXTREMITIES:? No edema, no clubbing, MUSCULOSKELETAL:? no muscle wasting NEURO:? ? no lateralizing signs. SKIN:? No Rash PSYCH; somnolent Assessment:? 1.? Acute toxic encephalopathy from intentional drug overdose 2.? Intentional drug overdose in an apparent suicide attempt 3.? Seasonal affective disorder 4.? Dyslipidemia 5.? Depression with anxiety 6.? Elevated blood pressure 7.? Class I obesity with BMI 34.5 8.? GERD 9.? DVT prophylaxis?low risk Recommendations: 1.? I have discussed the results of my overview and impressions with the patient 2.? Options for management were reviewed Total time spent by myself and the advanced practice practitioner evaluating patient, reviewing labs, subsequent management decisions, discussion with patient as well as other providers 40 minutes ( 25 of which was spent by myself) Charges/Coding Visit Charges Inpatient E&M: 76477 Subs Hosp L2
--- NOTE | 2022-08-08 11:48 | CASEMGMT ---
SW Note WILL met with patient on this date. Patient said that he is doing alright today. Patient said that he is at the hospital as he swallowed all my pills. SW asked patient if he wanted to and he said yes. Patient said that he has felt suicidal for years and years. He denied any specific trigger. Denies current SI. However, this health underwriter advised that due to patient's serious suicide attempt he needs to go to inpatient psych. Patient verbalized understanding. SW called [facility]. No beds. SW called [facility]. Two beds left but can't guarantee room today. SW called [facility]. They have beds. Referral faxed to [facility]. Will faxed referral to [facility] and [facility] for review. Luz Marina FELICIANO
--- NOTE | 2022-08-08 13:38 | PCM.DC.SUM ---
Documented by User: Felicita Nielson NP, PHARMACY BILLING ADJUDICATOR-C 08/08/22 13:43 Providers Date of Admission: 08/07/22 Date of Discharge: 08/08/22 Primary Care Physician: Dr. Seven Hagan, Reason For Visit: SUICIDE ATTEMPT, OD Diagnosis Discharge Diagnosis (1) Suicide attempt by substance overdose: Status: Acute Code(s): T65.92XA - Toxic effect of unspecified substance, intentional self-harm, initial encounter Medications at Discharge Home Medications aripiprazole 10 mg tablet 10 mg PO QHS 02/23/18 ondansetron HCl 4 mg tablet (Zofran) 4 mg PO Q8H PRN nausea and vomiting #14 tabs 06/26/21 atorvastatin 20 mg tablet 20 mg PO DAILY 08/06/22 quetiapine 100 mg tablet 50 mg PO BREAKFAST 08/06/22 loratadine 10 mg capsule 10 mg PO DAILY 08/07/22 pantoprazole 40 mg tablet,delayed release (Protonix) 40 mg PO DAILY 08/07/22 quetiapine 400 mg tablet,extended release 24 hr 400 mg PO QHS 08/07/22 quetiapine 50 mg tablet 50 mg PO LUNCH 08/07/22 quetiapine 50 mg tablet (Seroquel) 200 mg PO QHS 08/07/22 Hospital Course Operations None Procedures None Summary of Care Provided Hospital Course: Patient is a 32-year-old male admitted 9821 due to overdose. 1.? Altered mental status with intentional overdose-Seroquel overdose.? Previous inpatient psychiatric admission at .? Brain CT normal.? Medically cleared for inpatient psychiatric transfer. 2. Urinary retention-Likely related to anticholinergic effects from Seroquel overdose. UA unremarkable.? Ro removed and patient now voiding without difficulty. 3. Leukocytosis-suspect reactive/overdose related.? UA and chest x-ray unremarkable.? Afebrile. 4. Elevated blood pressure without history of hypertension-as needed hydralazine.? Blood pressure now stable. 5. Depression/anxiety/schizoaffective disorder-on aripiprazole, quetiapine.? Hold Seroquel, resume aripiprazole. 6. Hyperlipidemia-continue statin. 7. MADELYN-noncompliant with CPAP. Physical Exam Const alert and oriented x3 HEENT normocephalic and moist oral mucous membranes Eyes PERRL, EOMs intact bilaterally and conjunctivae normal Neck no lymphadenopathy Resp normal respiratory effort and clear to auscultation bilaterally Cardio regular rate, regular rhythm and no murmurs Peripheral Pulses: pulses 2+ throughout GI normal to inspection, nondistended, normoactive bowel sounds, non-tender and non-distended Extremity normal to inspection Skin no rashes or lesions noted Lesions: no lesions Rashes: no rashes Trauma: no lacerations or abrasions Neuro CN's II-XII intact bilaterally, no focal motor deficits, no sensory deficits noted and deep tendon reflexes 2+ bilaterally Psych mental status grossly normal and affect normal Patient seen and examined prior to discharge. Physical assessment as noted above. This patient was seen by ETIENNE Talavera under the supervision of Dr. Martin. Weight / BMI Weight Weight: 240 lb 4.862 oz Body Mass Index (BMI) 34.4 ABG / Lab / Microbiology Data Result Diagrams: 08/08/22 06:46 08/08/22 06:46 Laboratory: Laboratory Results - last 24 hr 08/08/22 06:46: WBC 14.9 H, RBC 4.55 L, Hgb 13.6, Hct 39.3 L, MCV 86.4, MCH 29.9, MCHC 34.6, RDW Std Deviation 39.7, RDW Coeff of Monalisa 12.6, Plt Count 226, MPV 10.6, Immature Gran % (Auto) 0.900, Neut % (Auto) 77.9 H, Lymph % (Auto) 10.6 L, [place] % (Auto) 8.4, Eos % (Auto) 1.7, Baso % (Auto) 0.5, Absolute Neuts (auto) 11.6 H, Absolute Lymphs (auto) 1.57, Nucleated RBC % 0 08/08/22 06:46: Sodium 144, Potassium 3.7, Chloride 112 H, Carbon Dioxide 23.0, Anion Gap 9, BUN 15, Creatinine 1.17, Estim Creat Clear Calc 92.72, Est GFR (MDRD) Af Amer 92, Est GFR (MDRD) Non-Af 76, BUN/Creatinine Ratio 12.8, Glucose 91, Calcium 9.8 Microbiology: Microbiology 08/06/22 13:00 Nasal Secretion SARS-CoV-2 Antigen (Rapid) - Final Meaningful Use Info Meaningful Use Diagnoses (Choose all that apply): None applicable Discharge Plan Admission Admit Date/Time: 08/07/22 14:50 Primary Reason for Your Visit: Overdose Attending Provider: Bunny Martin Primary Care Provider: Seven Hagan Consulting Providers: Cindy Ramey Discharge Orders/Prescriptions Prescriptions: No Action aripiprazole 10 mg tablet 10 mg PO QHS ondansetron HCl [Zofran] 4 mg tablet 4 mg PO Q8H PRN (Reason: nausea and vomiting) Qty: 14 0RF atorvastatin 20 mg tablet 20 mg PO DAILY quetiapine 100 mg tablet 50 mg PO BREAKFAST pantoprazole [Protonix] 40 mg Tablet,Delayed Release (Dr/Ec) 40 mg PO DAILY quetiapine 50 mg Tablet 50 mg PO LUNCH quetiapine [Seroquel] 50 mg Tablet 200 mg PO QHS quetiapine 400 mg Tablet Extended Release 24 Hr 400 mg PO QHS loratadine 10 mg Capsule 10 mg PO DAILY Referrals / Follow Up: Seven Hagan, [Primary Care Provider] - Disposition Disposition (needs filled in before D/C Order can be placed): Psychiatric Hospital or Unit Hospital Course Summary of Care Provided Hospital Course: This patient was seen in conjunction with ETIENNE Talavera .? I have independently interviewed and examined the patient and reviewed pertinent historical, laboratory, and other data.? Please refer to ETIENNE Talavera? note for details of this patient's presentation, findings, and recommendations.? I have reviewed? ETIENNE Talavera ? note and concur? with documented findings. In brief, patient is a 32-year-old gentleman with schizoaffective disorder admitted following a suicide attempt with an intentional drug overdose (suspected Seroquel) 08/08/2022; per nursing staff patient has been sleeping a lot Physical Examination: GENERAL: Somnolent but arousable HEENT: Atraumatic; EYES; Anicteric, Normal Conjunctiva NECK; supple, normal thyroid, RESPIRATORY: Diminished to auscultation CARDIOVASCULAR:? Regular S1 S2, GI:? soft, normoactive bowel sounds, : No Renal angle tenderness; EXTREMITIES:? No edema, no clubbing, MUSCULOSKELETAL:? no muscle wasting NEURO:? ? no lateralizing signs. SKIN:? No Rash PSYCH; somnolent Assessment:? 1.? Acute toxic encephalopathy from intentional drug overdose 2.? Intentional drug overdose in an apparent suicide attempt 3.? Seasonal affective disorder 4.? Dyslipidemia 5.? Depression with anxiety 6.? Elevated blood pressure 7.? Class I obesity with BMI 34.5 8.? GERD 9.? DVT prophylaxis?low risk Hospital course; as documented above Total time spent by myself and the advanced practice practitioner evaluating patient, reviewing labs, subsequent management decisions, discussion with patient as well as other providers 45 minutes ( 25 of which was spent by myself) Documented by User: Dr. Bunny Martin MD 08/08/22 14:53 Providers Date of Admission: 08/07/22 Reason For Visit: SUICIDE ATTEMPT, OD Diagnosis Discharge Diagnosis (1) Suicide attempt by substance overdose: Status: Acute Code(s): T65.92XA - Toxic effect of unspecified substance, intentional self-harm, initial encounter Medications at Discharge Home Medications aripiprazole 10 mg tablet 10 mg PO QHS 02/23/18 ondansetron HCl 4 mg tablet (Zofran) 4 mg PO Q8H PRN nausea and vomiting #14 tabs 06/26/21 atorvastatin 20 mg tablet 20 mg PO DAILY 08/06/22 quetiapine 100 mg tablet 50 mg PO BREAKFAST 08/06/22 loratadine 10 mg capsule 10 mg PO DAILY 08/07/22 pantoprazole 40 mg tablet,delayed release (Protonix) 40 mg PO DAILY 08/07/22 quetiapine 400 mg tablet,extended release 24 hr 400 mg PO QHS 08/07/22 quetiapine 50 mg tablet 50 mg PO LUNCH 08/07/22 quetiapine 50 mg tablet (Seroquel) 200 mg PO QHS 08/07/22 Hospital Course Operations None Procedures None Summary of Care Provided Minutes Spent on Discharge: 45 ABG / Lab / Microbiology Data Result Diagrams: 08/08/22 06:46 08/08/22 06:46 Discharge Plan Admission Admit Date/Time: 08/07/22 14:50 Primary Reason for Your Visit: Overdose Attending Provider: Bunny Martin Primary Care Provider: Seven Hagan Consulting Providers: Cindy Ramey Discharge Orders/Prescriptions Prescriptions: No Action aripiprazole 10 mg tablet 10 mg PO QHS ondansetron HCl [Zofran] 4 mg tablet 4 mg PO Q8H PRN (Reason: nausea and vomiting) Qty: 14 0RF atorvastatin 20 mg tablet 20 mg PO DAILY quetiapine 100 mg tablet 50 mg PO BREAKFAST pantoprazole [Protonix] 40 mg Tablet,Delayed Release (Dr/Ec) 40 mg PO DAILY quetiapine 50 mg Tablet 50 mg PO LUNCH quetiapine [Seroquel] 50 mg Tablet 200 mg PO QHS quetiapine 400 mg Tablet Extended Release 24 Hr 400 mg PO QHS loratadine 10 mg Capsule 10 mg PO DAILY Referrals / Follow Up: Seven Hagan DO [Primary Care Provider] - Disposition Disposition (needs filled in before D/C Order can be placed): Psychiatric Hospital or Unit Charges/Coding Visit Charges Inpatient E&M: 38520 Disch Hosp Hospital Course Operations None Procedures Procedures: None Summary of Care Provided Hospital Course: This patient was seen in conjunction with ETIENNE Talavera .? I have independently interviewed and examined the patient and reviewed pertinent historical, laboratory, and other data.? Please refer to ETIENNE Talavera? note for details of this patient's presentation, findings, and recommendations.? I have reviewed? ETIENNE Talavera ? note and concur? with documented findings. In brief, patient is a 32-year-old gentleman with schizoaffective disorder admitted following a suicide attempt with an intentional drug overdose (suspected Seroquel) 08/08/2022; per nursing staff patient has been sleeping a lot Physical Examination: GENERAL: Somnolent but arousable HEENT: Atraumatic; EYES; Anicteric, Normal Conjunctiva NECK; supple, normal thyroid, RESPIRATORY: Diminished to auscultation CARDIOVASCULAR:? Regular S1 S2, GI:? soft, normoactive bowel sounds, : No Renal angle tenderness; EXTREMITIES:? No edema, no clubbing, MUSCULOSKELETAL:? no muscle wasting NEURO:? ? no lateralizing signs. SKIN:? No Rash PSYCH; somnolent Assessment:? 1.? Acute toxic encephalopathy from intentional drug overdose 2.? Intentional drug overdose in an apparent suicide attempt 3.? Seasonal affective disorder 4.? Dyslipidemia 5.? Depression with anxiety 6.? Elevated blood pressure 7.? Class I obesity with BMI 34.5 8.? GERD 9.? DVT prophylaxis?low risk Hospital course; as documented above Total time spent by myself and the advanced practice practitioner evaluating patient, reviewing labs, subsequent management decisions, discussion with patient as well as other providers 45 minutes ( 25 of which was spent by myself)
--- NOTE | 2022-08-08 13:58 | NURSING ---
report called to nurse Bailey Friend [place] [address] [phone] Alcaraz
--- NOTE | 2022-08-08 15:15 | CM.ED ---
[facility] called repeatedly for clarification on patient's medical condition. WILL spoke to Charley from [facility] and the leaf conditioner Lucia also talked to Charley. Charley called and left voice mail that [facility] declined. [facility] declined as they had no beds. [facility] accepted per leaf conditioner Lucia. Accepting MD is Dr. Alcaraz. He is going to [address] and the RN to RN is [phone], community youth secretary will arrange for transport. SW was advised patient' last picker is at 4pm. SW spoke to patient and his mother. All questions were answered. Sw discussed that patient is going to [facility] for treatment. Family had questions about the pink slip. SW also discussed the PHP/IOP program possibly at discharge. SW provided information on PHP/IOP. WILL advised that transport is scheduled for 4pm. Plan: [facility] FELICIANO
[2022-08-08 15:26] VITALS: BP 137/93; PULSE 100; RESP 15; TEMP 36.9; O2SAT 96
--- NOTE | 2022-08-09 00:52 | ED.RN ---
[facility] CALLED TO CHECK TO SEE IF PATIENT STILL NEEDING ROOM. MADE AWARE PATIENT WAS TRANSFERRED TO ANOTHER HOSPITAL
== END 2022-08-08 17:04 | DRG 917 ==
LOC: ED 15:20 → PCU 15:36
PROVIDERS: Nurse Practitioner Family; Admitting Provider Family Medicine; Emergency Provider Student in an Organized Health Care Education/Training Program; PCP Family Medicine; Visit Provider Internal Medicine
DX: T44.3X4A Poisoning by other parasympatholytics [anticholinergics and antimuscarinics] and spasmolytics, undetermined, initial encounter (principal); G92.9 Unspecified toxic encephalopathy; F84.5 Asperger's syndrome; F25.0 Schizoaffective disorder, bipolar type; T14.91XA Suicide attempt, initial encounter; T50.902A Poisoning by unspecified drugs, medicaments and biological substances, intentional self-harm, initial encounter; E78.00 Pure hypercholesterolemia, unspecified; F41.8 Other specified anxiety disorders; G47.33 Obstructive sleep apnea (adult) (pediatric); K21.9 Gastro-esophageal reflux disease without esophagitis; E78.5 Hyperlipidemia, unspecified; E66.9 Obesity, unspecified; Z68.34 Body mass index [BMI] 34.0-34.9, adult; R03.0 Elevated blood-pressure reading, without diagnosis of hypertension; R33.9 Retention of urine, unspecified; Z91.19 Patient's noncompliance with other medical treatment and regimen
CPT/HCPCS: 36415; 70450; 71045; 72125; 80048; 80053; 80178; 80307; 80329; 81001; 82077; 82550; 82962; 85025; 87811; 93005; 99285; J7030; A4216; G0480; J3490

== ENCOUNTER 2022-08-26 06:23 | Emergency (ER) | payer MEDICARE, MEDICAID, SELFPAY ==
[2022-08-26 06:27] VITALS: BP 158/92; PULSE 93; RESP 18; TEMP 36.3; O2SAT 98; BMI 38.0
--- NOTE | 2022-08-26 06:39 | EDS_ITS ---
HPI History of Present Illness Chief Complaint: Rash Informant: patient Onset/Context/Timing Onset: Yesterday Context: Gradual Onset Timing: Continuous Quality: red, pruritic, some burning Location: all 4 ext's Current Severity: Severe (itchy) Maximum Severity: Severe (itchy) Worsened by: touching affected areas Relieved by: scratching, benadryl Associated Symptoms Associated Symptoms: no other new sx Narrative Narrative: Patient states he was just started on Tegretol yesterday as a mood stabilizer, yesterday he took the first dose. Subsequently started breaking out in red very itchy areas on all 4 extremities. States he has a history of getting dyspneic with exertion, that is not new or worse now, he states because of this history he specifically did not walk up the hill here because I know I would pass out. [facility] Medical History Depression with anxiety GERD (gastroesophageal reflux disease) High cholesterol History of suicide attempt Obesity MADELYN (obstructive sleep apnea) Schizoaffective disorder, bipolar type Suicide attempt by substance overdose Home Medications prednisone 20 mg tablet 40 mg PO DAILY #4 TABLETS 08/26/22 [Rx Last Taken Unknown] Allergy/AdvReac Type Severity Reaction Status Date / Time lamotrigine [From Lamictal] AdvReac Rash Verified 08/26/22 06:25 Family History (Updated 08/06/22 @ 15:[address] Cindy Ramey MD) Mother Anxiety and depression Mental health problem Fibromyalgia Father Scleroderma Sclerosing scleroderma Other auto immune disorder Surgical History History of tonsillectomy and adenoidectomy Social History household members: other details: Lives with a roommate. Smoking Status: Never smoker alcohol intake: never substance use type: does not use ROS ROS ED Constitutional Constitutional ED: Denies chills or fever(s) Eyes Eyes: Denies change in vision or diplopia ENT ENT ED: Denies rhinorrhea or sore throat Cardiovascular Cardiovascular: Denies chest pain or palpitations Respiratory/Chest Respiratory/Chest: Reports dyspnea on exertion; Denies cough Gastrointestinal Gastrointestinal: Denies abdominal pain, diarrhea, nausea or vomiting Genitourinary Genitourinary ED: Denies dysuria or hematuria Musculoskeletal Musculoskeletal: Denies back pain or neck pain Integumentary Reports erythema, pruritus and rash; Denies abscess Neurologic Neurologic: Denies headache(s), paresthesias or weakness Psychiatric Psychiatric: Denies anxiety or suicidal thoughts EXAM Physical Exam Const Vital Signs: 08/26/22 06:27 Temperature 97.4 F L Temperature Source Temporal Pulse Rate 93 Respiratory Rate 18 Blood Pressure 158/92 H Blood Pressure Mean 114 Pulse Ox 98 Oxygen Delivery Method Room Air Positive well nourished and well developed General Appearance ED: well developed and NAD HEENT Reports moist mucous membranes HEENT Narrative: No oral mucosal lesions normocephalic and atraumatic Eyes PERRL and EOMs intact bilaterally Neck full ROM and supple Resp normal respiratory effort and clear to auscultation bilaterally Cardio regular rate, regular rhythm and no murmurs Rate: Negative for tachycardic Back/Spine no CVA tenderness General Back: other FROM Extremity Extremity Narrative: Erythematous areas of skin, otherwise normal inspection General Extremety ED: Negative for edema, pulses abnormal or tenderness General Extremity: Negative for edema or pulses abnormal Neuro oriented x3, CN's II-XII intact bilaterally and no sensory deficits noted Sensorium / Orientation: awake and alert Motor Exam: strength 5/5 throughout Psych Psych Narrative: Odd affect. Pressured speech at times. Skin no wounds Skin Narrative: Scattered areas of erythema, on the legs it is medial aspect of both knees, anterior and medial ankles, with normal range of motion of these joints. On upper extremities it is from the wrist all the way down the forearms and beyond the elbows. Erythema, mildly warm, no tenderness anywhere. Patient states when you touch it it makes me want to scratch at it. No bullae, petechia, purpura, no edema. Not raised. MDM MDM MDM Narrative Medical decision making narrative: Suspect this is a reaction due to the carbamazepine he just started. I am going to place him on just a couple days of prednisone and give him some more Benadryl here, he last took it last night and it helped transiently. Will advise he discontinue the medication and discuss with his prescribing physician regarding a replacement. He is in agreement with this. Discharge Plan Triage Chief Complaint: Rash ED Provider: Blaise Stanton Dx/Rx/DC Orders Clinical Impression: Allergic drug reaction Instructions: ED Drug Reaction, Other Prescriptions: New prednisone 20 MG tablet 40 mg PO DAILY Qty: 4 0RF Rx Instructions: start 08/27 Discontinued carbamazepine [Tegretol] 200 mg Tablet 200 mg PO QHS Primary Care Provider: Seven Hagan Referrals: Seven Hagan DO [Primary Care Provider] - As soon as possible Disposition Disposition: Home, Self Care
[2022-08-26] MEDS: DiphenhydrAMINE 25 MG Capsule 50 MG PO (06:48)
[2022-08-26] MEDS: predniSONE 20 MG Tablet 40 MG PO (06:49)
[2022-08-26 06:50] VITALS: BP 162/94; PULSE 97; RESP 16; O2SAT 100
== END 2022-08-26 07:12 | disposition home or self-care (01) ==
PROVIDERS: Emergency Provider Emergency Medicine; PCP Family Medicine; Visit Provider Emergency Medicine
DX: T78.40XA Allergy, unspecified, initial encounter (principal); F25.0 Schizoaffective disorder, bipolar type; E78.00 Pure hypercholesterolemia, unspecified; G47.33 Obstructive sleep apnea (adult) (pediatric); K21.9 Gastro-esophageal reflux disease without esophagitis
CPT/HCPCS: 99284

== ENCOUNTER 2022-09-03 05:44 | Emergency (ER) | payer MEDICARE, MEDICAID, SELFPAY ==
[2022-09-03 05:45] VITALS: BP 174/111; PULSE 120; RESP 18; TEMP 36.3; O2SAT 94; BMI 32.2
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
[2022-09-03] MEDS: Ziprasidone IM 20 MG/ML VIAL IM (06:07)
--- NOTE | 2022-09-03 06:08 | ED.RN ---
Pt yelling while RNs attempting to get blood work. Pt resistant to needle stick. Pt vomiting purple colored vomit while laying down, refusing to sit up. Then patient vomits on the floor, patient refusing to clean himself up. medicated per MAR
--- NOTE | 2022-09-03 06:18 | ED.RN ---
per Dr Brar he does not feel patient is suicidal and does not require a sitter.
[2022-09-03 06:22] LABS: Absolute Lymphocyte Count 2.43 X10^3/uL (0.83-4.51); Absolute Neutrophil Count 11.2 X10^3/uL (2.0-7.7); Basophil# 0.12 X10^3/uL; Basophil% 0.8 % (0-1); Eosinophil# 0.11 X10^3/uL; Eosinophils% 0.7 % (0-5); Hematocrit 47.8 % (40-54); Hemoglobin 16.5 g/dL (13.0-16.5); Lymphocyte # 2.43 X10^3/ul (0.83-4.51); Lymphocyte % 15.8 % (19-41); Mean Corp Hgb Conc 34.5 g/dL (32-36); Mean Corpuscular Hgb 28.7 pg (27.0-32.0); Mean Corpuscular Volume 83.3 fL (80-94); Mean Platelet Vol. 9.8 fl (6.2-12.0); Monocyte# 1.28 X10^3/uL; Monocyte% 8.3 % (0-10); NRBC Flagged by Analyzer 0 % (0-5); Neutrophil # 11.21 X10^3/uL (2.7-7.7); Neutrophil % 73.2 % (47-70); Platelet Count 369 K/mm3 (150-450); RBC Distribution Width CV 11.9 % (11.6-14.6); RBC Distribution Width SD 35.4 fl (35.1-43.9); Red Blood Count 5.74 M/mm3 (4.6-6.2); White Blood Count 15.3 K/mm3 (4.4-11.0)
[2022-09-03 06:36] LABS: Anion Gap 11 (5-15); BUN 18 mg/dL (7-18); BUN/Creat Ratio 14.3 RATIO (10-20); Chloride 108 mmol/L (98-107); Creatinine, Serum 1.26 mg/dL (0.70-1.30); EST Glomerular Filtration Rate 70 mL/min (>60); Est Glom Filt Rate - Afr Amer 85 mL/min (>60); Glucose 130 mg/dL (74-106); Potassium 3.5 mmol/L (3.5-5.1); Sodium Level 140 mmol/L (136-145)
[2022-09-03 06:40] VITALS: RESP 16
[2022-09-03 06:43] LABS: Amphetamine Urine VISTA NEGATIVE (<1000 ng/mL); Barbiturate Urine VISTA NEGATIVE (< 200 ng/mL); Benzodiazepine Urine VISTA NEGATIVE (< 200 ng/mL); Cocaine Urine VISTA NEGATIVE (< 300 ng/mL); Ecstacy Urine VISTA NEGATIVE (< 500 ng/mL); Methadone Urine VISTA NEGATIVE (< 300 ng/mL); PCP Urine VISTA NEGATIVE (< 25 ng/mL); THC Urine VISTA NEGATIVE (< 50 ng/mL); Vista UDS pH Range 5
--- NOTE | 2022-09-03 07:06 | NURSING ---
CALLED CRISIS AT [phone].
[2022-09-03 09:00] VITALS: BP 134/64; PULSE 80; RESP 16; O2SAT 99
--- NOTE | 2022-09-03 10:43 | ED.RN ---
PER DR WANG. YURI WILL PLAN TO PLACE PT
[2022-09-03 11:53] VITALS: BP 130/68; PULSE 72; RESP 16; O2SAT 99
--- NOTE | 2022-09-03 13:59 | ED.RN ---
crisis called and stated they are sending the referral to [facility]
[2022-09-03 14:27] VITALS: BP 132/66; PULSE 74; RESP 14; TEMP 37.1; O2SAT 99
--- NOTE | 2022-09-03 14:31 | CCN.REFER ---
[facility] CALLED FOR TRANSPORT TO [facility]
--- NOTE | 2022-09-03 14:31 | NURSING ---
attempt to call report was transferred 3 times. on hold, ringing for 5 min.
[2022-09-03 14:53] VITALS: BP 132/66; PULSE 74; RESP 18; TEMP 37.2; O2SAT 99
== END 2022-09-03 16:59 ==
PROVIDERS: Emergency Provider Emergency Medicine; PCP Family Medicine; Visit Provider Emergency Medicine
DX: F25.9 Schizoaffective disorder, unspecified (principal); R45.851 Suicidal ideations; E78.00 Pure hypercholesterolemia, unspecified; Z91.14 Patient's other noncompliance with medication regimen; F41.9 Anxiety disorder, unspecified
CPT/HCPCS: 80048; 80307; 82077; 85025; 87811; 99283; J3486

== ENCOUNTER 2022-09-08 23:32 | Emergency (ER) | payer MEDICARE, MEDICAID, SELFPAY ==
[2022-09-08 23:33] VITALS: BP 153/115; PULSE 112; RESP 15; TEMP 36.7; O2SAT 95; BMI 22.1
[2022-09-09] VITALS (9 sets, daily range): BP systolic 130–168; BP diastolic 74–106; PULSE 65–90; RESP 14–16; TEMP 37.1; O2SAT 96–100
--- NOTE | 2022-09-09 | ED.RN ---
PATIENT WASHED FEET WITH SOAP AND WATER AND THEN APPLIED LOTION. GIVEN TOOTHBRUSH AND PASTE.
--- NOTE | 2022-09-09 00:01 | ED.RN ---
Pt wandering halls, yelling at police to point a gun at me make me go back into my room Pt is not redirectable. Medicated per MAR. police at bedside.
[2022-09-09] MEDS: Ziprasidone IM 20 MG/ML VIAL IM (00:06)
[2022-09-09 00:31] LABS: Absolute Lymphocyte Count 1.81 X10^3/uL (0.83-4.51); Absolute Neutrophil Count 6.5 X10^3/uL (2.0-7.7); Basophil# 0.08 X10^3/uL; Basophil% 0.9 % (0-1); Eosinophil# 0.05 X10^3/uL; Eosinophils% 0.5 % (0-5); Hematocrit 41.1 % (40-54); Hemoglobin 13.8 g/dL (13.0-16.5); Lymphocyte # 1.81 X10^3/ul (0.83-4.51); Lymphocyte % 19.5 % (19-41); Mean Corp Hgb Conc 33.6 g/dL (32-36); Mean Corpuscular Hgb 29.2 pg (27.0-32.0); Mean Corpuscular Volume 87.1 fL (80-94); Mean Platelet Vol. 10.3 fl (6.2-12.0); Monocyte# 0.78 X10^3/uL; Monocyte% 8.4 % (0-10); NRBC Flagged by Analyzer 0 % (0-5); Neutrophil % 70.2 % (47-70); Platelet Count 214 K/mm3 (150-450); RBC Distribution Width SD 38.5 fl (35.1-43.9); Red Blood Count 4.72 M/mm3 (4.6-6.2); White Blood Count 9.3 K/mm3 (4.4-11.0)
[2022-09-09 00:34] LABS: Amphetamine Urine VISTA NEGATIVE (<1000 ng/mL); Barbiturate Urine VISTA NEGATIVE (< 200 ng/mL); Benzodiazepine Urine VISTA NEGATIVE (< 200 ng/mL); Cocaine Urine VISTA NEGATIVE (< 300 ng/mL); Ecstacy Urine VISTA NEGATIVE (< 500 ng/mL); Methadone Urine VISTA NEGATIVE (< 300 ng/mL); PCP Urine VISTA NEGATIVE (< 25 ng/mL); THC Urine VISTA NEGATIVE (< 50 ng/mL); Vista UDS pH Range 4
[2022-09-09 00:45] LABS: Anion Gap 7 (5-15); BUN 16 mg/dL (7-18); BUN/Creat Ratio 15.7 RATIO (10-20); Calcium,Total 9.3 mg/dL (8.5-10.1); Chloride 110 mmol/L (98-107); Creatinine, Serum 1.02 mg/dL (0.70-1.30); EST Glomerular Filtration Rate 89 mL/min (>60); Est Glom Filt Rate - Afr Amer 108 mL/min (>60); Estimated Creatinine Clearance 99.13 ml/min; Glucose 120 mg/dL (74-106); Potassium 3.3 mmol/L (3.5-5.1); Sodium Level 142 mmol/L (136-145)
[2022-09-09 00:52] LABS: Acetaminophen (Tylenol) Level < 2.0 ug/mL (10.0-30.0); Alcohol, Blood (Medical)-Serum < 3.0 mg/dL; Salicylate < 1.7 mg/dL (2.8-20.0)
--- NOTE | 2022-09-09 03:20 | NURSING ---
PAGED CRISIS AT [phone]
[2022-09-09] MEDS: DiphenhydrAMINE 50 MG/ML Syringe IM (04:47)
[2022-09-09] MEDS: LORazepam 2 MG/ML Syringe IM (04:47)
--- NOTE | 2022-09-09 05:40 | EDS_ITS ---
HPI History of Present Illness Chief Complaint: Mental Health Narrative Narrative: Patient is a 32-year-old male with reported history of schizophrenia brought in by police. Please state they were called twice on the patient. They state the first time he was with reported friends and he began saying things that concerned them and frightened them so they contacted police. Patient reported left that gathering and then was walking around the [facility] and acting bizarre and therefore please were called again. When they arrived patient was unaware of his surroundings he was only wearing shorts and a shirt and walking around without shoes or socks. He reported to police he is not taking any medication for schizophrenia. Patient was acting bizarre and displaying that he is not capable of caring for himself and therefore he was brought to the hospital for evaluation. [facility] Medical History Depression with anxiety GERD (gastroesophageal reflux disease) High cholesterol History of suicide attempt Obesity MADELYN (obstructive sleep apnea) Schizoaffective disorder, bipolar type Suicide attempt by substance overdose Home Medications aripiprazole 20 mg tablet 20 mg PO DAILY 09/03/22 [History Last Taken Unknown] carbamazepine 200 mg tablet 200 mg PO BID 09/03/22 [History Last Taken Unknown] clonazepam 1 mg tablet 1 mg PO TID 09/03/22 [History Last Taken Unknown] escitalopram oxalate 10 mg tablet 10 mg PO DAILY 09/03/22 [History Last Taken Unknown] oxcarbazepine 600 mg tablet 600 mg PO DAILY 09/03/22 [History Last Taken Unknown] pantoprazole 40 mg tablet,delayed release 40 mg PO DAILY 09/03/22 [History Last Taken Unknown] quetiapine 100 mg tablet 100 mg PO DAILY 09/03/22 [History Last Taken Unknown] ziprasidone HCl 40 mg capsule 40 mg PO BID 09/03/22 [History Last Taken Unknown] Allergy/AdvReac Type Severity Reaction Status Date / Time lamotrigine [From Lamictal] AdvReac Rash Verified 09/03/22 05:56 Family History Mother Anxiety and depression Mental health problem Fibromyalgia Father Scleroderma Sclerosing scleroderma Other auto immune disorder Surgical History History of tonsillectomy and adenoidectomy Social History household members: other details: Lives with a roommate. Smoking Status: Never smoker alcohol intake: never substance use type: does not use ROS ROS ED Constitutional Constitutional ED: Denies chills or fever(s) Eyes Eyes: Denies change in vision ENT ENT ED: Denies sore throat Cardiovascular Cardiovascular: Denies chest pain Respiratory/Chest Respiratory/Chest: Denies cough or dyspnea Gastrointestinal Gastrointestinal: Denies abdominal pain, diarrhea, nausea or vomiting Genitourinary Genitourinary ED: Denies dysuria Musculoskeletal Musculoskeletal: Denies myalgias Integumentary Denies rash Neurologic Neurologic: Denies headache(s) Psychiatric Psychiatric: Denies suicidal ideation or suicidal thoughts EXAM Physical Exam Const Vital Signs: 09/08/22 23:33 Temperature 98.0 F Temperature Source Temporal Pulse Rate 112 H Respiratory Rate 15 Blood Pressure 153/115 H Blood Pressure Mean 127 Pulse Ox 95 Oxygen Delivery Method Room Air Positive well nourished and well developed General Appearance ED: well developed HEENT Reports moist mucous membranes Eyes PERRL and EOMs intact bilaterally Neck supple Chest Wall palpation of chest normal Resp normal respiratory effort and clear to auscultation bilaterally Cardio regular rate and regular rhythm GI normal to inspection, nondistended, normoactive bowel sounds, non-tender and non-distended GI Narrative: No voluntary guarding or rigidity no pulsatile mass Auscultation: normoactive bowel sounds Palpation: soft Extremity normal to inspection Neuro CN's II-XII intact bilaterally Sensorium / Orientation: alert Motor Exam: strength 5/5 throughout Psych Psych Narrative: Patient has a flat affect. He denies homicidal or suicidal ideation. However he is displaying bizarre behavior and answering questions inappropriately. Skin no rashes or lesions noted MDM MDM MDM Narrative Medical decision making narrative: Patient presented to the ER in no acute distress. He denied any homicidal or suicidal ideation but he is displaying bizarre behavior and indicating he is not capable of caring for himself. Therefore psychiatric screening exam was performed. Labs revealed no clinically significant findings and therefore he is medically cleared and evaluated by crisis center. They agree that with his bizarre behavior and inability to care for himself he will need placed in a psychiatric hospital for further care. Lab Data Attestation: I reviewed the patient's lab results. Labs: Laboratory Results - last 24 hr 09/09/22 09/09/22 09/09/22 00:05 00:25 00:25 WBC 9.3 RBC 4.72 Hgb 13.8 Hct 41.1 MCV 87.1 MCH 29.2 MCHC 33.6 RDW Std Deviation 38.5 RDW Coeff of Monalisa 12.0 Plt Count 214 MPV 10.3 Immature Gran % (Auto) 0.500 Neut % (Auto) 70.2 H Lymph % (Auto) 19.5 [place] % (Auto) 8.4 Eos % (Auto) 0.5 Baso % (Auto) 0.9 Absolute Neuts (auto) 6.5 Absolute Lymphs (auto) 1.81 Nucleated RBC % 0 Sodium 142 Potassium 3.3 L Chloride 110 H Carbon Dioxide 25.0 Anion Gap 7 BUN 16 Creatinine 1.02 Estim Creat Clear Calc 99.13 Est GFR (MDRD) Af Amer 108 Est GFR (MDRD) Non-Af 89 BUN/Creatinine Ratio 15.7 Glucose 120 H Calcium 9.3 Salicylates Urine Opiates Screen NEGATIVE Urine Methadone Screen NEGATIVE Acetaminophen Ur Barbiturates Screen NEGATIVE Ur Phencyclidine Scrn NEGATIVE Ur Amphetamines Screen NEGATIVE MDMA (Ecstasy) Screen NEGATIVE U Benzodiazepines Scrn NEGATIVE Urine Cocaine Screen NEGATIVE U Cannabinoids Screen NEGATIVE Ur Drug Screen Comment Ethyl Alcohol 09/09/22 00:25 WBC RBC Hgb Hct MCV MCH MCHC RDW Std Deviation RDW Coeff of Monalisa Plt Count MPV Immature Gran % (Auto) Neut % (Auto) Lymph % (Auto) [place] % (Auto) Eos % (Auto) Baso % (Auto) Absolute Neuts (auto) Absolute Lymphs (auto) Nucleated RBC % Sodium Potassium Chloride Carbon Dioxide Anion Gap BUN Creatinine Estim Creat Clear Calc Est GFR (MDRD) Af Amer Est GFR (MDRD) Non-Af BUN/Creatinine Ratio Glucose Calcium Salicylates < 1.7 L Urine Opiates Screen Urine Methadone Screen Acetaminophen < 2.0 L Ur Barbiturates Screen Ur Phencyclidine Scrn Ur Amphetamines Screen MDMA (Ecstasy) Screen U Benzodiazepines Scrn Urine Cocaine Screen U Cannabinoids Screen Ur Drug Screen Comment Ethyl Alcohol < 3.0 Discharge Plan Triage Chief Complaint: Mental Health ED Provider: Andes,Kofi Dx/Rx/DC Orders Clinical Impression: Schizoaffective disorder, Noncompliance with medications Prescriptions: No Action aripiprazole 20 mg tablet 20 mg PO DAILY carbamazepine 200 mg tablet 200 mg PO BID clonazepam 1 mg tablet 1 mg PO TID Label Comments: 1 tablet orally 3 times per day as needed for dyskinesia escitalopram oxalate 10 mg tablet 10 mg PO DAILY pantoprazole 40 mg tablet,delayed release (DR/EC) 40 mg PO DAILY ziprasidone HCl 40 mg capsule 40 mg PO BID Label Comments: Take 1 Capsule By Oral Route 2 times per day with food quetiapine 100 mg tablet 100 mg PO DAILY oxcarbazepine 600 mg tablet 600 mg PO DAILY Primary Care Provider: Care Physician,No Primary Referrals: Care Physician,No Primary [Primary Care Provider] - Disposition Disposition: Psychiatric Hospital or Unit
--- NOTE | 2022-09-09 10:05 | ED.RN ---
THIS RN SPOKE TO RN FROM [facility]. [facility] DOCTOR REQUIRING A BEHAVIOR UPDATE 8 HOURS AFTER MEDICATIONS WERE GIVEN.
--- NOTE | 2022-09-09 10:51 | CM.ED ---
Social Work This social human services assistants updated by medical team that [place] to be medically updated at 12:45pm today after it has been 8 hours after patient was medicated. Patient continues to be pending [place] [facility]. Will continue to follow. Robert HENDRICKSON, GAYATRI
--- NOTE | 2022-09-09 11:11 | CM.ED ---
Social Work Telephone call from Melisa Carrillo. Melisa reports to have obtained a facesheet in regards to referral for patient but need full clinical information. This social media project manager faxed clinical information. Medical team updated. Robert HENDRICKSON, GAYATRI
--- NOTE | 2022-09-09 12:13 | ED.RN ---
PATIENT COOPERATIVE, RESTING IN BED. UPDATED PATIENT ON TRANSFERRING FACILITY.
--- NOTE | 2022-09-09 13:40 | CM.ED ---
Social Work Telephone call to [place], Admissions. Admissions requesting last nursing note and updated vitals. Clinical information faxed. Will continue to follow. Robert HENDRICKSON, ELISSAS
--- NOTE | 2022-09-09 13:52 | CM.ED ---
Social Work Telephone call from [place], [facility]. Reporting that blood pressure is still to high, bottom number needs to be under 100. Admissions also request further nursing documentation to clarify patient behaviors currently. This social and political studies professor updated medical team. Will continue to follow. Robert HENDRICKSON, GAYATRI
--- NOTE | 2022-09-09 14:11 | ED.RN ---
AT THIS TIME PT IS CASUALLY RECLINING IN HIS BED WITH BLACK SHORTS AND NO SHIRT ON. PT DOES NOT WANT A SHEET OR BLANKET BECAUSE HE STATES THE TEMPERATURE IS COMFORTABLE. PT HAS BEEN DRINKING HIS WATER AND HE REMAINS RELAXED AND IS WATCHING TV. PT DENIES THE NEEDS FOR A TOOTHBRUSH AT THIS TIME. WHILE TAKING PTS VS PT IS VERY TALKATIVE AND COOPERATIVE WITH THE NECESSARY INTERACTIONS THAT THE STAFF NEEDS TO PERFORM. PT IS AWARE THAT STAFF IS VERY BUSY BECAUSE THIS IS AN ER AND DEMONSTRATES PATIENCE WHEN HE NEEDS SOMETHING. PT ATE HIS LUNCH AND HAD NO COMPLAINTS OR REQUEST AT THAT TIME.
--- NOTE | 2022-09-09 14:24 | CM.ED ---
Social Work Updated vital signs and nursing notes faxed to [facility]. Will continue to follow. Robert HENDRICKSON, GAYATRI
--- NOTE | 2022-09-09 14:26 | CM.ED ---
Social Work Telephone call to [facility], jaclyn. This social work case manager left voicemail for admissions to check on status of referral. Will continue to follow. Robert HENDRICKSON, GAYATRI
--- NOTE | 2022-09-09 15:02 | CM.ED ---
Social Work Telephone all received from [facility]. Patient case continues to be under review due to inquiring of how the blood pressure is being treated due to the steady measurement of a high blood pressure. This clinical social work aide updated medical team on above. Will continue to follow. Robert HENDRICKSON, GAYATRI
--- NOTE | 2022-09-09 15:50 | CM.ED ---
Social Work Medical team updating this social science teacher that there is not specific treatment for where patient BP levels are currently and report that patient is medically cleared. This social science teacher contacting [place], jaclyn. This social science teacher updated intake on above information. Clinicals to be reviewed further. Will continue to follow. Robert HENDRICKSON, GAYATRI
--- NOTE | 2022-09-09 16:50 | CM.ED ---
Social Work Telephone call to Kavitha Willis. Kavitha reports to have open beds. Clinical information faxed. Telephone call to Irma KIM. Irma reports to have open beds. Clinical information faxed. Will continue to follow. Robert HENDRICKSON, GAYATRI
--- NOTE | 2022-09-09 17:50 | CM.ED ---
Social Work Telephone call received from [place], intake. Declining patient. Telephone call from [facility], no longer have any open beds. Are able to review for tomorrow if still needed bed. Will continue to follow. Pending [facility] and [facility]. Robert Herrera MSW, MARIANA-S
--- NOTE | 2022-09-09 18:27 | CM.ED ---
Social Work Telephone call from [facility], [place]. Patient has been accepted by [facility]. Nurse to call report to [phone]. This clinical social work therapist faxed pink slip. Medical team updated. Patient to be updated by nursing staff. Patient mother, Rosa Jauregui updated on patient disposition/location. PLAN: [facility], inpatient psychiatric facility. No further services requested or indicated. Robert HENDRICKSON, ELISSAS
--- NOTE | 2022-09-09 18:57 | ED.RN ---
PT WALKED OUT OF HIS ROOM AND STATED HIS RIDE WAS HERE. TOLD PT TO GO BACK INTO HIS ROOM. PT PUT HIS ARMS UP AND PROCEEDED TO WALK TOWARDS THE EXIT. THIS NURSE STOOD IN FRONT OF HIM UNTIL PT CAME CHEST TO CHEST WITH THIS NURSE. PT THEN PUSHED AND BECAME PHYSICAL MULTIPLE STAFF MEMBERS ATTEMPTED TO WALK HIM BACK TO HIS ROOM. PT THEN PROCEEDED TO LAY DOWN AND START KICKING. ONCE PT STARTED KICKING THIS NURSE PLACED MORE PRESSURE ON PTS LEGS AND TOLD HIM THIS WAS ENOUGH AND I WAS NOT PLAYING HIS GAME. TOLD PT TO GET UP AND GO TO HIS ROOM. PT THEN GOT UP WITH ASSISTANCE AND WAS DIRECTED INTO HIS ROOM AND TOLD HE WILL NOT COME OUT AGAIN. TOLD PT HE WOULD BE PLACED IN RESTRAINTS IF HE ACTED THIS WAY AGAIN. PHYSICIAN WAS AWARE BECAUSE SHE WAS INVOLVED IN THE EVENT WITH THE PT.
[2022-09-09] MEDS: Acetaminophen 500 MG Tablet 1000 MG PO (23:01)
[2022-09-10 01:00] VITALS: RESP 15
[2022-09-10] MEDS: Ziprasidone IM 20 MG/ML VIAL IM (01:19)
--- NOTE | 2022-09-10 01:20 | ED.RN ---
PATIENT GOT UP AND OUT OF ROOM AND STARTED WALKING OUT OF THE UNIT YELLING A GIRL NEEDED HELP. SECURITY CALLED AT THIS TIME. PATIENT BUSTED THRU EMS DOORS AND WENT OUTSIDE YELLING FOR HELP. PATIENT BROUGHT SELF BACK IN AT THIS TIME AND WENT BACK INTO ROOM ASKING TO BE RESTRAINED AND MEDICATED. AT THIS TIME OUTSTANDING MEDICATION ORDER TO PATIENT PATIENT BEING DIFFICULT TO REDIRECT
[2022-09-10 03:00] VITALS: RESP 15
[2022-09-10 05:00] VITALS: RESP 15
--- NOTE | 2022-09-10 07:43 | ED.RN ---
PT CAME OUT OF HIS ROOM AND SHOVED EQUIPMENT OFF A CABINET OUTSIDE HIS ROOM, PT THEN AGGRESSVELY WA;LKED TOWARD THE EXIT AT WHICH TIME THIS NURSE STEPPED IN FRONT OF HIM AND PROCEEDED TO YELL AT HIM IN CLOSE PROXIMITY AND TELL HIM TO GO DENISSE TO HIS ROOM. PT STOOD THERE UNTIL THIS NURSE PHYSICALLY GRABBED HIS ARM AND TURNED HIM AROUND AND ASSISTED HIM TO HIS ROOM. ONCE IN HIS ROOM HE WAS TOLD TO GET ON HIS BED AND NOT GET UP AGAIN AND THAT BEHAVIOR WOULD NOT BE TOLERATED AGAIN. SECURITY IS NOW STANDING OUTSIDE HIS ROOM. AT SOME POINT SECURITY HAD TO STEP IN AND TELL HIM TO GET BACK IN THE BED AFTER TAKING THE LIGHT FROM ABOVE THE SINK DOWN. UNSURE IF IT BROKEN AT THIS TIME. PT IS ACTING OUT BECAUSE HE KNOWS HE IS GETTING TRANSFERRED
== END 2022-09-10 08:53 ==
PROVIDERS: Emergency Provider Emergency Medicine; Visit Provider Emergency Medicine
DX: F25.9 Schizoaffective disorder, unspecified (principal); Z91.14 Patient's other noncompliance with medication regimen; E78.00 Pure hypercholesterolemia, unspecified; K21.9 Gastro-esophageal reflux disease without esophagitis; G47.33 Obstructive sleep apnea (adult) (pediatric); Z79.899 Other long term (current) drug therapy
CPT/HCPCS: 80048; 80307; 80329; 82077; 85025; 87811; 99283; A4216; G0480; J3486

== ENCOUNTER → 2022-10-01 | Outpatient (CLI) | payer MEDICARE, MEDICAID, SELFPAY ==
[2022-10-01 12:26] LABS: Absolute Lymphocyte Count 1.25 X10^3/uL (0.83-4.51); Absolute Neutrophil Count 4.8 X10^3/uL (2.0-7.7); Basophil# 0.03 X10^3/uL; Basophil% 0.5 % (0-1); Eosinophil# 0.01 X10^3/uL; Eosinophils% 0.2 % (0-5); Hematocrit 41.5 % (40-54); Lymphocyte # 1.25 X10^3/ul (0.83-4.51); Lymphocyte % 18.9 % (19-41); Mean Corp Hgb Conc 33.7 g/dL (32-36); Mean Corpuscular Hgb 29.2 pg (27.0-32.0); Mean Corpuscular Volume 86.5 fL (80-94); Mean Platelet Vol. 10.8 fl (6.2-12.0); Monocyte# 0.41 X10^3/uL; Monocyte% 6.2 % (0-10); NRBC Flagged by Analyzer 0 % (0-5); Neutrophil % 72.7 % (47-70); Platelet Count 247 K/mm3 (150-450); RBC Distribution Width CV 11.9 % (11.6-14.6); RBC Distribution Width SD 37.7 fl (35.1-43.9); White Blood Count 6.6 K/mm3 (4.4-11.0)
== END | disposition home or self-care (01) ==
LOC: MFPLAB 10:39
PROVIDERS: PCP Registered Nurse; Referring Provider Registered Nurse; Visit Provider Registered Nurse
DX: F31.62 Bipolar disorder, current episode mixed, moderate (principal); F20.9 Schizophrenia, unspecified
CPT/HCPCS: 36415; 85025

== ENCOUNTER 2022-10-27 08:51 | Outpatient (RCR) | payer MEDICARE, MEDICAID, SELFPAY ==
[2022-10-14 10:03] LABS: Absolute Lymphocyte Count 1.53 X10^3/uL (0.83-4.51); Basophil# 0.08 X10^3/uL; Basophil% 1.5 % (0-1); Eosinophil# 0.05 X10^3/uL; Eosinophils% 0.9 % (0-5); Hemoglobin 13.8 g/dL (13.0-16.5); Lymphocyte # 1.53 X10^3/ul (0.83-4.51); Lymphocyte % 28.9 % (19-41); Mean Corp Hgb Conc 33.7 g/dL (32-36); Mean Corpuscular Hgb 28.9 pg (27.0-32.0); Mean Platelet Vol. 10.8 fl (6.2-12.0); Monocyte# 0.53 X10^3/uL; NRBC Flagged by Analyzer 0 % (0-5); Neutrophil # 3.03 X10^3/uL (2.7-7.7); Neutrophil % 57.4 % (47-70); Platelet Count 201 K/mm3 (150-450); RBC Distribution Width CV 11.8 % (11.6-14.6); Red Blood Count 4.77 M/mm3 (4.6-6.2); White Blood Count 5.3 K/mm3 (4.4-11.0)
[2022-10-27 09:30] LABS: Absolute Lymphocyte Count 1.69 X10^3/uL (0.83-4.51); Absolute Neutrophil Count 2.5 X10^3/uL (2.0-7.7); Basophil# 0.04 X10^3/uL; Basophil% 0.8 % (0-1); Eosinophil# 0.31 X10^3/uL; Hematocrit 44.7 % (40-54); Hemoglobin 14.5 g/dL (13.0-16.5); Lymphocyte # 1.69 X10^3/ul (0.83-4.51); Lymphocyte % 32.8 % (19-41); Mean Corp Hgb Conc 32.4 g/dL (32-36); Mean Corpuscular Hgb 27.9 pg (27.0-32.0); Mean Corpuscular Volume 86.1 fL (80-94); Mean Platelet Vol. 10.4 fl (6.2-12.0); Monocyte# 0.58 X10^3/uL; Monocyte% 11.2 % (0-10); NRBC Flagged by Analyzer 0 % (0-5); Neutrophil # 2.47 X10^3/uL (2.7-7.7); Neutrophil % 47.8 % (47-70); Platelet Count 202 K/mm3 (150-450); RBC Distribution Width CV 12.2 % (11.6-14.6); RBC Distribution Width SD 38.2 fl (35.1-43.9); Red Blood Count 5.19 M/mm3 (4.6-6.2); White Blood Count 5.2 K/mm3 (4.4-11.0)
[2022-10-27 09:54] LABS: Valproic Acid (Depakene) Level 40 ug/mL (50-100)
[2022-10-27 10:47] LABS: ALB/GLOB Ratio 1.2 RATIO (0.9-2.4); AST(SGOT) 17 U/L (15-37); Alanine Aminotransfer ALT/SGPT 38 U/L (16-61); Albumin, Serum 3.9 g/dL (3.2-5.0); Alkaline Phosphatase 111 U/L (45-117); Anion Gap 6 (5-15); BUN 23 mg/dL (7-18); BUN/Creat Ratio 25.8 RATIO (10-20); Calcium,Total 9.6 mg/dL (8.5-10.1); Chloride 110 mmol/L (98-107); Creatinine, Serum 0.89 mg/dL (0.70-1.30); EST Glomerular Filtration Rate 104 mL/min (>60); Est Glom Filt Rate - Afr Amer 126 mL/min (>60); Globulin 3.3 g/dL (2.2-4.2); Glucose 71 mg/dL (74-106); Potassium 4.1 mmol/L (3.5-5.1); Protein, Total 7.2 g/dL (6.4-8.2); Sodium Level 143 mmol/L (136-145)
== END 2022-10-28 18:00 | disposition home or self-care (01) ==
LOC: LAB 08:51
PROVIDERS: PCP Family Medicine; Visit Provider Registered Nurse
DX: F31.62 Bipolar disorder, current episode mixed, moderate (principal); F20.9 Schizophrenia, unspecified; Z79.899 Other long term (current) drug therapy
CPT/HCPCS: 36415; 80053; 80164; 85025

== ENCOUNTER 2022-11-18 09:29 | Outpatient (RCR) | payer MEDICARE, MEDICAID, SELFPAY ==
[2022-11-04 09:43] LABS: Absolute Lymphocyte Count 1.49 X10^3/uL (0.83-4.51); Absolute Neutrophil Count 2.8 X10^3/uL (2.0-7.7); Basophil# 0.05 X10^3/uL; Eosinophil# 0.21 X10^3/uL; Eosinophils% 4.1 % (0-5); Hematocrit 43.8 % (40-54); Hemoglobin 14.2 g/dL (13.0-16.5); Lymphocyte # 1.49 X10^3/ul (0.83-4.51); Mean Corp Hgb Conc 32.4 g/dL (32-36); Mean Corpuscular Hgb 27.8 pg (27.0-32.0); Mean Corpuscular Volume 85.7 fL (80-94); Mean Platelet Vol. 10.4 fl (6.2-12.0); Monocyte% 9.7 % (0-10); NRBC Flagged by Analyzer 0 % (0-5); Neutrophil # 2.83 X10^3/uL (2.7-7.7); Neutrophil % 55.2 % (47-70); Platelet Count 190 K/mm3 (150-450); RBC Distribution Width CV 12.2 % (11.6-14.6); RBC Distribution Width SD 37.9 fl (35.1-43.9); Red Blood Count 5.11 M/mm3 (4.6-6.2); White Blood Count 5.1 K/mm3 (4.4-11.0)
[2022-11-04 10:07] LABS: ALB/GLOB Ratio 1.1 RATIO (0.9-2.4); AST(SGOT) 14 U/L (15-37); Alanine Aminotransfer ALT/SGPT 39 U/L (16-61); Albumin, Serum 3.7 g/dL (3.2-5.0); Alkaline Phosphatase 97 U/L (45-117); Anion Gap 6 (5-15); BUN 19 mg/dL (7-18); Calcium,Total 9.4 mg/dL (8.5-10.1); Chloride 109 mmol/L (98-107); Creatinine, Serum 0.86 mg/dL (0.70-1.30); EST Glomerular Filtration Rate 108 mL/min (>60); Est Glom Filt Rate - Afr Amer 131 mL/min (>60); Globulin 3.4 g/dL (2.2-4.2); Glucose 94 mg/dL (74-106); Potassium 3.8 mmol/L (3.5-5.1); Protein, Total 7.1 g/dL (6.4-8.2); Sodium Level 141 mmol/L (136-145); Valproic Acid (Depakene) Level 40 ug/mL (50-100)
[2022-11-12 08:19] LABS: Absolute Lymphocyte Count 1.72 X10^3/uL (0.83-4.51); Basophil# 0.05 X10^3/uL; Basophil% 0.9 % (0-1); Eosinophil# 0.17 X10^3/uL; Eosinophils% 3.1 % (0-5); Hematocrit 43.3 % (40-54); Hemoglobin 14.1 g/dL (13.0-16.5); Lymphocyte # 1.72 X10^3/ul (0.83-4.51); Lymphocyte % 30.9 % (19-41); Mean Corp Hgb Conc 32.6 g/dL (32-36); Mean Corpuscular Hgb 28.2 pg (27.0-32.0); Mean Corpuscular Volume 86.6 fL (80-94); Mean Platelet Vol. 10.5 fl (6.2-12.0); Monocyte# 0.59 X10^3/uL; Monocyte% 10.6 % (0-10); NRBC Flagged by Analyzer 0 % (0-5); Neutrophil # 2.97 X10^3/uL (2.7-7.7); Neutrophil % 53.4 % (47-70); Platelet Count 203 K/mm3 (150-450); RBC Distribution Width CV 12.2 % (11.6-14.6); RBC Distribution Width SD 38.6 fl (35.1-43.9); White Blood Count 5.6 K/mm3 (4.4-11.0)
[2022-11-18 10:50] LABS: Absolute Lymphocyte Count 1.47 X10^3/uL (0.83-4.51); Basophil# 0.05 X10^3/uL; Basophil% 0.9 % (0-1); Eosinophil# 0.14 X10^3/uL; Eosinophils% 2.6 % (0-5); Hematocrit 42.4 % (40-54); Hemoglobin 13.9 g/dL (13.0-16.5); Lymphocyte # 1.47 X10^3/ul (0.83-4.51); Lymphocyte % 27.1 % (19-41); Mean Corp Hgb Conc 32.8 g/dL (32-36); Mean Corpuscular Hgb 28.3 pg (27.0-32.0); Mean Corpuscular Volume 86.4 fL (80-94); Mean Platelet Vol. 10.9 fl (6.2-12.0); Monocyte# 0.68 X10^3/uL; Monocyte% 12.5 % (0-10); NRBC Flagged by Analyzer 0 % (0-5); Neutrophil # 3.02 X10^3/uL (2.7-7.7); Neutrophil % 55.6 % (47-70); Platelet Count 199 K/mm3 (150-450); RBC Distribution Width CV 12.3 % (11.6-14.6); RBC Distribution Width SD 38.6 fl (35.1-43.9); Red Blood Count 4.91 M/mm3 (4.6-6.2); White Blood Count 5.4 K/mm3 (4.4-11.0)
== END 2022-11-18 18:00 | disposition home or self-care (01) ==
LOC: LAB 09:29
PROVIDERS: PCP Family Medicine; Referring Provider Registered Nurse; Visit Provider Registered Nurse
DX: F31.62 Bipolar disorder, current episode mixed, moderate (principal); F20.9 Schizophrenia, unspecified; Z79.899 Other long term (current) drug therapy
CPT/HCPCS: 36415; 80053; 80164; 82140; 85025

== ENCOUNTER 2022-12-03 08:22 | Outpatient (RCR) | payer MEDICARE, MEDICAID, SELFPAY ==
[2022-12-03 08:44] LABS: Absolute Lymphocyte Count 1.68 X10^3/uL (0.83-4.51); Absolute Neutrophil Count 3.4 X10^3/uL (2.0-7.7); Basophil# 0.05 X10^3/uL; Basophil% 0.8 % (0-1); Eosinophil# 0.17 X10^3/uL; Eosinophils% 2.8 % (0-5); Hematocrit 43.3 % (40-54); Hemoglobin 14.6 g/dL (13.0-16.5); Lymphocyte # 1.68 X10^3/ul (0.83-4.51); Lymphocyte % 28.1 % (19-41); Mean Corp Hgb Conc 33.7 g/dL (32-36); Mean Corpuscular Hgb 28.7 pg (27.0-32.0); Mean Corpuscular Volume 85.1 fL (80-94); Mean Platelet Vol. 10.1 fl (6.2-12.0); Monocyte# 0.58 X10^3/uL; Monocyte% 9.7 % (0-10); NRBC Flagged by Analyzer 0 % (0-5); Neutrophil # 3.41 X10^3/uL (2.7-7.7); Neutrophil % 57.1 % (47-70); Platelet Count 189 K/mm3 (150-450); RBC Distribution Width CV 12.1 % (11.6-14.6); RBC Distribution Width SD 37.2 fl (35.1-43.9); Red Blood Count 5.09 M/mm3 (4.6-6.2)
== END 2022-12-03 09:00 | disposition home or self-care (01) ==
LOC: LAB 08:22
PROVIDERS: PCP Family Medicine; Referring Provider Registered Nurse; Visit Provider Registered Nurse
DX: F31.62 Bipolar disorder, current episode mixed, moderate (principal); F20.9 Schizophrenia, unspecified
CPT/HCPCS: 36415; 82140; 85025

== ENCOUNTER → 2022-12-10 | Outpatient (CLI) | payer MEDICARE, MEDICAID, SELFPAY ==
[2022-12-10 15:14] LABS: Absolute Lymphocyte Count 1.44 X10^3/uL (0.83-4.51); Absolute Neutrophil Count 2.8 X10^3/uL (2.0-7.7); Basophil# 0.04 X10^3/uL; Basophil% 0.8 % (0-1); Hematocrit 44.7 % (40-54); Hemoglobin 14.6 g/dL (13.0-16.5); Lymphocyte # 1.44 X10^3/ul (0.83-4.51); Lymphocyte % 29.3 % (19-41); Mean Corp Hgb Conc 32.7 g/dL (32-36); Mean Corpuscular Hgb 27.9 pg (27.0-32.0); Mean Corpuscular Volume 85.3 fL (80-94); Monocyte# 0.48 X10^3/uL; Monocyte% 9.8 % (0-10); NRBC Flagged by Analyzer 0 % (0-5); Neutrophil % 56.9 % (47-70); Platelet Count 176 K/mm3 (150-450); RBC Distribution Width CV 12.1 % (11.6-14.6); RBC Distribution Width SD 37.5 fl (35.1-43.9); Red Blood Count 5.24 M/mm3 (4.6-6.2); White Blood Count 4.9 K/mm3 (4.4-11.0)
== END | disposition home or self-care (01) ==
PROVIDERS: PCP Family Medicine; Visit Provider Registered Nurse
DX: F31.62 Bipolar disorder, current episode mixed, moderate (principal); F20.9 Schizophrenia, unspecified
CPT/HCPCS: 36415; 85025

== ENCOUNTER → 2022-12-23 | Outpatient (CLI) | payer MEDICARE, MEDICAID, SELFPAY ==
[2022-12-23 15:12] LABS: Absolute Lymphocyte Count 1.61 X10^3/uL (0.83-4.51); Absolute Neutrophil Count 3.1 X10^3/uL (2.0-7.7); Basophil# 0.05 X10^3/uL; Basophil% 0.9 % (0-1); Eosinophil# 0.04 X10^3/uL; Eosinophils% 0.7 % (0-5); Hematocrit 43.3 % (40-54); Hemoglobin 14.5 g/dL (13.0-16.5); Lymphocyte # 1.61 X10^3/ul (0.83-4.51); Lymphocyte % 29.4 % (19-41); Mean Corp Hgb Conc 33.5 g/dL (32-36); Mean Corpuscular Hgb 28.3 pg (27.0-32.0); Mean Corpuscular Volume 84.6 fL (80-94); Mean Platelet Vol. 10.9 fl (6.2-12.0); Monocyte# 0.62 X10^3/uL; Monocyte% 11.3 % (0-10); NRBC Flagged by Analyzer 0 % (0-5); Neutrophil # 3.09 X10^3/uL (2.7-7.7); Neutrophil % 56.4 % (47-70); Platelet Count 169 K/mm3 (150-450); RBC Distribution Width CV 12.3 % (11.6-14.6); RBC Distribution Width SD 37.3 fl (35.1-43.9); Red Blood Count 5.12 M/mm3 (4.6-6.2); White Blood Count 5.5 K/mm3 (4.4-11.0)
== END | disposition home or self-care (01) ==
LOC: MFPLAB 13:44
PROVIDERS: PCP Family Medicine; Visit Provider Psychiatry & Neurology Psychiatry
DX: F31.62 Bipolar disorder, current episode mixed, moderate (principal); F20.9 Schizophrenia, unspecified; Z79.899 Other long term (current) drug therapy
CPT/HCPCS: 36415; 85025

== ENCOUNTER 2023-01-14 13:18 | Outpatient (RCR) | payer MEDICARE, MEDICAID, SELFPAY ==
[2023-01-14 13:52] LABS: Absolute Lymphocyte Count 1.45 X10^3/uL (0.83-4.51); Absolute Neutrophil Count 6.3 X10^3/uL (2.0-7.7); Basophil# 0.02 X10^3/uL; Basophil% 0.2 % (0-1); Hematocrit 47.1 % (40-54); Hemoglobin 15.8 g/dL (13.0-16.5); Lymphocyte # 1.45 X10^3/ul (0.83-4.51); Lymphocyte % 16.2 % (19-41); Mean Corp Hgb Conc 33.5 g/dL (32-36); Mean Corpuscular Hgb 28.3 pg (27.0-32.0); Mean Corpuscular Volume 84.3 fL (80-94); Mean Platelet Vol. 10.4 fl (6.2-12.0); Monocyte# 1.13 X10^3/uL; Monocyte% 12.6 % (0-10); NRBC Flagged by Analyzer 0 % (0-5); Neutrophil # 6.27 X10^3/uL (2.7-7.7); Neutrophil % 69.9 % (47-70); Platelet Count 194 K/mm3 (150-450); RBC Distribution Width CV 12.5 % (11.6-14.6); RBC Distribution Width SD 37.6 fl (35.1-43.9); Red Blood Count 5.59 M/mm3 (4.6-6.2)
== END 2023-01-14 18:00 | disposition home or self-care (01) ==
LOC: LAB 13:18
PROVIDERS: PCP Family Medicine; Referring Provider Registered Nurse; Visit Provider Registered Nurse
DX: F31.62 Bipolar disorder, current episode mixed, moderate (principal); F20.9 Schizophrenia, unspecified
CPT/HCPCS: 36415; 85025

== ENCOUNTER → 2023-01-19 | Outpatient (CLI) | payer MEDICARE, MEDICAID, SELFPAY ==
[2023-01-19 13:33] LABS: Absolute Lymphocyte Count 1.66 X10^3/uL (0.83-4.51); Absolute Neutrophil Count 3.2 X10^3/uL (2.0-7.7); Basophil# 0.02 X10^3/uL; Basophil% 0.4 % (0-1); Hematocrit 41.6 % (40-54); Lymphocyte # 1.66 X10^3/ul (0.83-4.51); Lymphocyte % 29.5 % (19-41); Mean Corp Hgb Conc 33.7 g/dL (32-36); Mean Corpuscular Hgb 28.4 pg (27.0-32.0); Mean Corpuscular Volume 84.4 fL (80-94); Mean Platelet Vol. 10.5 fl (6.2-12.0); Monocyte# 0.54 X10^3/uL; Monocyte% 9.6 % (0-10); NRBC Flagged by Analyzer 0 % (0-5); Neutrophil # 3.21 X10^3/uL (2.7-7.7); Neutrophil % 57.1 % (47-70); POSITIVE MORPHOLOGY YES; Platelet Count 199 K/mm3 (150-450); RBC Distribution Width CV 12.4 % (11.6-14.6); RBC Distribution Width SD 37.4 fl (35.1-43.9); Red Blood Count 4.93 M/mm3 (4.6-6.2); White Blood Count 5.6 K/mm3 (4.4-11.0)
[2023-01-19 13:36] LABS: Differential Indicated SCAN CRITERIA MET
[2023-01-19 14:06] LABS: Atypical Lymphocyte 1+ %; Differential Comment SCANNED
[2023-01-19 14:18] LABS: Valproic Acid (Depakene) Level 56 ug/mL (50-100)
== END | disposition home or self-care (01) ==
PROVIDERS: PCP Family Medicine; Visit Provider Student in an Organized Health Care Education/Training Program
DX: F25.0 Schizoaffective disorder, bipolar type (principal); Z51.81 Encounter for therapeutic drug level monitoring
CPT/HCPCS: 36415; 80164; 85025

== ENCOUNTER → 2023-02-05 | Outpatient (CLI) | payer MEDICARE, MEDICAID, SELFPAY ==
[2023-02-05 15:30] LABS: AST(SGOT) 21 U/L (15-37); Alanine Aminotransfer ALT/SGPT 45 U/L (16-61); Albumin, Serum 3.6 g/dL (3.2-5.0); Alkaline Phosphatase 118 U/L (45-117); Anion Gap 10 (5-15); BUN 21 mg/dL (7-18); BUN/Creat Ratio 21.8 RATIO (10-20); CRP 4.84 mg/L (0.0-3.0); Calcium,Total 9.2 mg/dL (8.5-10.1); Chloride 108 mmol/L (98-107); Cholesterol 166 mg/dL (200); Creatinine, Serum 0.96 mg/dL (0.70-1.30); EST Glomerular Filtration Rate 95 mL/min (>60); Est Glom Filt Rate - Afr Amer 115 mL/min (>60); Globulin 3.7 g/dL (2.2-4.2); Glucose 85 mg/dL (74-106); High Density Lipoprotein 22 mg/dL; Potassium 3.9 mmol/L (3.5-5.1); Protein, Total 7.3 g/dL (6.4-8.2); Sodium Level 142 mmol/L (136-145); Triglycerides 334 mg/dL; Very Low Density Lipoprotein 67 mg/dL (5-40)
[2023-02-05 16:02] LABS: Absolute Lymphocyte Count 1.56 X10^3/uL (0.83-4.51); Basophil# 0.04 X10^3/uL; Basophil% 0.7 % (0-1); Eosinophil# 0.01 X10^3/uL; Eosinophils% 0.2 % (0-5); Hemoglobin 14.8 g/dL (13.0-16.5); Lymphocyte # 1.56 X10^3/ul (0.83-4.51); Lymphocyte % 29.1 % (19-41); Mean Corp Hgb Conc 32.9 g/dL (32-36); Mean Corpuscular Hgb 28.2 pg (27.0-32.0); Mean Corpuscular Volume 85.9 fL (80-94); Mean Platelet Vol. 10.9 fl (6.2-12.0); Monocyte# 0.54 X10^3/uL; Monocyte% 10.1 % (0-10); NRBC Flagged by Analyzer 0 % (0-5); Neutrophil # 2.96 X10^3/uL (2.7-7.7); Neutrophil % 55.2 % (47-70); Platelet Count 139 K/mm3 (150-450); RBC Distribution Width CV 12.9 % (11.6-14.6); RBC Distribution Width SD 39.8 fl (35.1-43.9); Red Blood Count 5.24 M/mm3 (4.6-6.2); White Blood Count 5.4 K/mm3 (4.4-11.0)
[2023-02-05 16:03] LABS: Erythrocyte Sedimentation Rate 3 mm/hr (0-20)
== END | disposition home or self-care (01) ==
LOC: BFHLAB 11:20
PROVIDERS: PCP Family Medicine; Visit Provider Family Medicine
DX: R19.7 Diarrhea, unspecified (principal); E78.5 Hyperlipidemia, unspecified
CPT/HCPCS: 36415; 80053; 80061; 85025; 85652; 86140

== ENCOUNTER → 2023-02-08 | Outpatient (CLI) | payer MEDICARE, MEDICAID, SELFPAY ==
[2023-02-15 12:22] LABS: Pancreatic Elastase, Fecal 402 (>200)
== END | disposition home or self-care (01) ==
PROVIDERS: PCP Family Medicine; Visit Provider Family Medicine
DX: R19.7 Diarrhea, unspecified (principal); E78.5 Hyperlipidemia, unspecified
CPT/HCPCS: 82653; 83630; 87177; 87209

== ENCOUNTER 2023-02-24 11:25 | Outpatient (RCR) | payer MEDICARE, MEDICAID, SELFPAY ==
[2023-02-04 12:04] LABS: Absolute Lymphocyte Count 1.21 X10^3/uL (0.83-4.51); Absolute Neutrophil Count 3.7 X10^3/uL (2.0-7.7); Basophil# 0.02 X10^3/uL; Basophil% 0.4 % (0-1); Eosinophil# 0.02 X10^3/uL; Eosinophils% 0.4 % (0-5); Hematocrit 44.6 % (40-54); Hemoglobin 15.1 g/dL (13.0-16.5); Lymphocyte # 1.21 X10^3/ul (0.83-4.51); Lymphocyte % 22.2 % (19-41); Mean Corp Hgb Conc 33.9 g/dL (32-36); Mean Corpuscular Hgb 28.6 pg (27.0-32.0); Mean Corpuscular Volume 84.5 fL (80-94); Mean Platelet Vol. 10.6 fl (6.2-12.0); Monocyte# 0.31 X10^3/uL; Monocyte% 5.7 % (0-10); NRBC Flagged by Analyzer 0 % (0-5); Neutrophil # 3.66 X10^3/uL (2.7-7.7); Neutrophil % 66.9 % (47-70); Platelet Count 128 K/mm3 (150-450); RBC Distribution Width CV 12.9 % (11.6-14.6); RBC Distribution Width SD 38.8 fl (35.1-43.9); Red Blood Count 5.28 M/mm3 (4.6-6.2); White Blood Count 5.5 K/mm3 (4.4-11.0)
[2023-02-24 12:40] LABS: Absolute Neutrophil Count 3.3 X10^3/uL (2.0-7.7); Basophil# 0.03 X10^3/uL; Basophil% 0.5 % (0-1); Hematocrit 44.9 % (40-54); Lymphocyte % 25.6 % (19-41); Mean Corp Hgb Conc 33.4 g/dL (32-36); Mean Corpuscular Hgb 28.4 pg (27.0-32.0); Mean Corpuscular Volume 84.9 fL (80-94); Mean Platelet Vol. 9.9 fl (6.2-12.0); Monocyte# 0.54 X10^3/uL; Monocyte% 9.9 % (0-10); NRBC Flagged by Analyzer 0 % (0-5); Neutrophil # 3.34 X10^3/uL (2.7-7.7); Neutrophil % 61.1 % (47-70); Platelet Count 186 K/mm3 (150-450); RBC Distribution Width CV 12.7 % (11.6-14.6); RBC Distribution Width SD 38.8 fl (35.1-43.9); Red Blood Count 5.29 M/mm3 (4.6-6.2); White Blood Count 5.5 K/mm3 (4.4-11.0)
== END 2023-02-26 21:17 | disposition home or self-care (01) ==
LOC: LAB 11:25
PROVIDERS: PCP Family Medicine; Referring Provider Student in an Organized Health Care Education/Training Program; Visit Provider Student in an Organized Health Care Education/Training Program
DX: F25.0 Schizoaffective disorder, bipolar type; Z79.899 Other long term (current) drug therapy
CPT/HCPCS: 36415; 85025

== ENCOUNTER 2023-03-18 14:35 | Outpatient (RCR) | payer MEDICARE, MEDICAID, SELFPAY ==
[2023-03-03 12:59] LABS: Absolute Lymphocyte Count 1.41 X10^3/uL (0.83-4.51); Absolute Neutrophil Count 2.4 X10^3/uL (2.0-7.7); Basophil# 0.01 X10^3/uL; Basophil% 0.2 % (0-1); Hematocrit 45.3 % (40-54); Lymphocyte # 1.41 X10^3/ul (0.83-4.51); Lymphocyte % 31.8 % (19-41); Mean Corp Hgb Conc 33.1 g/dL (32-36); Mean Corpuscular Hgb 28.5 pg (27.0-32.0); Mean Platelet Vol. 10.9 fl (6.2-12.0); Monocyte# 0.49 X10^3/uL; Monocyte% 11.1 % (0-10); NRBC Flagged by Analyzer 0 % (0-5); Neutrophil # 2.44 X10^3/uL (2.7-7.7); Neutrophil % 55.1 % (47-70); Platelet Count 172 K/mm3 (150-450); RBC Distribution Width CV 12.7 % (11.6-14.6); RBC Distribution Width SD 39.4 fl (35.1-43.9); Red Blood Count 5.27 M/mm3 (4.6-6.2); White Blood Count 4.4 K/mm3 (4.4-11.0)
[2023-03-18 15:46] LABS: Absolute Lymphocyte Count 1.44 X10^3/uL (0.83-4.51); Basophil# 0.01 X10^3/uL; Basophil% 0.2 % (0-1); Hematocrit 47.2 % (40-54); Hemoglobin 15.4 g/dL (13.0-16.5); Lymphocyte # 1.44 X10^3/ul (0.83-4.51); Mean Corp Hgb Conc 32.6 g/dL (32-36); Mean Corpuscular Hgb 28.2 pg (27.0-32.0); Mean Corpuscular Volume 86.3 fL (80-94); Mean Platelet Vol. 10.6 fl (6.2-12.0); Monocyte# 0.64 X10^3/uL; Monocyte% 12.4 % (0-10); NRBC Flagged by Analyzer 0 % (0-5); Neutrophil # 2.99 X10^3/uL (2.7-7.7); Platelet Count 158 K/mm3 (150-450); RBC Distribution Width CV 12.5 % (11.6-14.6); RBC Distribution Width SD 39.1 fl (35.1-43.9); Red Blood Count 5.47 M/mm3 (4.6-6.2); White Blood Count 5.2 K/mm3 (4.4-11.0)
== END 2023-03-28 00:26 | disposition home or self-care (01) ==
LOC: LAB 14:35
PROVIDERS: PCP Family Medicine; Referring Provider Student in an Organized Health Care Education/Training Program; Visit Provider Student in an Organized Health Care Education/Training Program
DX: F25.0 Schizoaffective disorder, bipolar type (principal); Z79.899 Other long term (current) drug therapy; F31.62 Bipolar disorder, current episode mixed, moderate
CPT/HCPCS: 36415; 85025

== ENCOUNTER 2023-04-27 12:36 | Outpatient (RCR) | payer MEDICARE, MEDICAID, SELFPAY ==
[2023-03-29 16:26] LABS: Absolute Lymphocyte Count 1.84 X10^3/uL (0.83-4.51); Absolute Neutrophil Count 4.2 X10^3/uL (2.0-7.7); Basophil# 0.01 X10^3/uL; Basophil% 0.1 % (0-1); Hematocrit 46.4 % (40-54); Hemoglobin 15.6 g/dL (13.0-16.5); Lymphocyte # 1.84 X10^3/ul (0.83-4.51); Lymphocyte % 27.2 % (19-41); Mean Corp Hgb Conc 33.6 g/dL (32-36); Mean Corpuscular Hgb 28.8 pg (27.0-32.0); Mean Corpuscular Volume 85.6 fL (80-94); Mean Platelet Vol. 10.3 fl (6.2-12.0); Monocyte# 0.62 X10^3/uL; Monocyte% 9.2 % (0-10); NRBC Flagged by Analyzer 0 % (0-5); Neutrophil # 4.18 X10^3/uL (2.7-7.7); Neutrophil % 61.9 % (47-70); Platelet Count 165 K/mm3 (150-450); RBC Distribution Width CV 12.5 % (11.6-14.6); RBC Distribution Width SD 38.6 fl (35.1-43.9); Red Blood Count 5.42 M/mm3 (4.6-6.2); White Blood Count 6.8 K/mm3 (4.4-11.0)
[2023-04-05 12:32] LABS: Absolute Lymphocyte Count 1.93 X10^3/uL (0.83-4.51); Absolute Neutrophil Count 7.5 X10^3/uL (2.0-7.7); Basophil# 0.02 X10^3/uL; Basophil% 0.2 % (0-1); Hematocrit 46.8 % (40-54); Hemoglobin 15.5 g/dL (13.0-16.5); Lymphocyte # 1.93 X10^3/ul (0.83-4.51); Lymphocyte % 18.8 % (19-41); Mean Corp Hgb Conc 33.1 g/dL (32-36); Mean Corpuscular Hgb 28.8 pg (27.0-32.0); Mean Platelet Vol. 10.6 fl (6.2-12.0); Monocyte# 0.81 X10^3/uL; Monocyte% 7.9 % (0-10); NRBC Flagged by Analyzer 0 % (0-5); Neutrophil # 7.47 X10^3/uL (2.7-7.7); Neutrophil % 72.5 % (47-70); Platelet Count 146 K/mm3 (150-450); RBC Distribution Width CV 12.4 % (11.6-14.6); RBC Distribution Width SD 39.1 fl (35.1-43.9); Red Blood Count 5.38 M/mm3 (4.6-6.2); White Blood Count 10.3 K/mm3 (4.4-11.0)
[2023-04-12 12:45] LABS: Absolute Lymphocyte Count 1.57 X10^3/uL (0.83-4.51); Absolute Neutrophil Count 2.9 X10^3/uL (2.0-7.7); Basophil# 0.01 X10^3/uL; Basophil% 0.2 % (0-1); Hematocrit 44.4 % (40-54); Hemoglobin 14.9 g/dL (13.0-16.5); Lymphocyte # 1.57 X10^3/ul (0.83-4.51); Lymphocyte % 31.5 % (19-41); Mean Corp Hgb Conc 33.6 g/dL (32-36); Mean Corpuscular Hgb 28.7 pg (27.0-32.0); Mean Corpuscular Volume 85.4 fL (80-94); Mean Platelet Vol. 10.7 fl (6.2-12.0); Monocyte# 0.37 X10^3/uL; Monocyte% 7.4 % (0-10); NRBC Flagged by Analyzer 0 % (0-5); Neutrophil # 2.93 X10^3/uL (2.7-7.7); Neutrophil % 58.9 % (47-70); Platelet Count 161 K/mm3 (150-450); RBC Distribution Width CV 12.3 % (11.6-14.6); RBC Distribution Width SD 38.3 fl (35.1-43.9)
[2023-04-19 13:43] LABS: Absolute Lymphocyte Count 1.91 X10^3/uL (0.83-4.51); Absolute Neutrophil Count 5.3 X10^3/uL (2.0-7.7); Basophil# 0.02 X10^3/uL; Basophil% 0.2 % (0-1); Hematocrit 47.2 % (40-54); Hemoglobin 15.6 g/dL (13.0-16.5); Lymphocyte # 1.91 X10^3/ul (0.83-4.51); Lymphocyte % 23.8 % (19-41); Mean Corp Hgb Conc 33.1 g/dL (32-36); Mean Corpuscular Hgb 28.4 pg (27.0-32.0); Mean Corpuscular Volume 85.8 fL (80-94); Mean Platelet Vol. 10.4 fl (6.2-12.0); Monocyte# 0.75 X10^3/uL; Monocyte% 9.3 % (0-10); NRBC Flagged by Analyzer 0 % (0-5); Neutrophil # 5.27 X10^3/uL (2.7-7.7); Neutrophil % 65.7 % (47-70); Platelet Count 172 K/mm3 (150-450); RBC Distribution Width CV 12.5 % (11.6-14.6); RBC Distribution Width SD 38.4 fl (35.1-43.9)
[2023-04-27 13:04] LABS: Absolute Lymphocyte Count 1.66 X10^3/uL (0.83-4.51); Absolute Neutrophil Count 3.7 X10^3/uL (2.0-7.7); Basophil# 0.02 X10^3/uL; Basophil% 0.3 % (0-1); Hematocrit 46.7 % (40-54); Hemoglobin 15.4 g/dL (13.0-16.5); Lymphocyte # 1.66 X10^3/ul (0.83-4.51); Lymphocyte % 27.9 % (19-41); Mean Corpuscular Hgb 28.4 pg (27.0-32.0); Mean Platelet Vol. 10.2 fl (6.2-12.0); Monocyte# 0.49 X10^3/uL; Monocyte% 8.2 % (0-10); NRBC Flagged by Analyzer 0 % (0-5); Neutrophil # 3.73 X10^3/uL (2.7-7.7); Neutrophil % 62.8 % (47-70); Platelet Count 163 K/mm3 (150-450); RBC Distribution Width CV 12.2 % (11.6-14.6); RBC Distribution Width SD 38.2 fl (35.1-43.9); Red Blood Count 5.43 M/mm3 (4.6-6.2)
== END 2023-04-27 13:30 | disposition home or self-care (01) ==
LOC: LAB 12:36
PROVIDERS: PCP Family Medicine; Referring Provider Student in an Organized Health Care Education/Training Program; Visit Provider Student in an Organized Health Care Education/Training Program
DX: F25.0 Schizoaffective disorder, bipolar type (principal)
CPT/HCPCS: 36415; 85025

== ENCOUNTER 2023-05-10 11:19 | Outpatient (RCR) | payer MEDICARE, MEDICAID, SELFPAY ==
[2023-05-10 11:36] LABS: Absolute Neutrophil Count 3.5 X10^3/uL (2.0-7.7); Basophil# 0.01 X10^3/uL; Basophil% 0.2 % (0-1); Hematocrit 47.5 % (40-54); Hemoglobin 15.9 g/dL (13.0-16.5); Lymphocyte % 29.7 % (19-41); Mean Corp Hgb Conc 33.5 g/dL (32-36); Mean Corpuscular Hgb 29.3 pg (27.0-32.0); Mean Corpuscular Volume 87.5 fL (80-94); Monocyte# 0.42 X10^3/uL; Monocyte% 7.3 % (0-10); NRBC Flagged by Analyzer 0 % (0-5); Neutrophil # 3.51 X10^3/uL (2.7-7.7); Neutrophil % 61.4 % (47-70); Platelet Count 159 K/mm3 (150-450); RBC Distribution Width CV 12.6 % (11.6-14.6); RBC Distribution Width SD 39.6 fl (35.1-43.9); Red Blood Count 5.43 M/mm3 (4.6-6.2); White Blood Count 5.7 K/mm3 (4.4-11.0)
== END 2023-05-10 18:00 | disposition home or self-care (01) ==
LOC: LAB 11:19
PROVIDERS: PCP Family Medicine; Referring Provider Student in an Organized Health Care Education/Training Program; Visit Provider Student in an Organized Health Care Education/Training Program
DX: F25.0 Schizoaffective disorder, bipolar type (principal)
CPT/HCPCS: 36415; 85025

== ENCOUNTER 2023-06-28 10:39 | Outpatient (RCR) | payer MEDICARE, MEDICAID, SELFPAY ==
[2023-05-31 10:22] LABS: Absolute Lymphocyte Count 1.65 X10^3/uL (0.83-4.51); Absolute Neutrophil Count 2.8 X10^3/uL (2.0-7.7); Basophil# 0.02 X10^3/uL; Basophil% 0.4 % (0-1); Hematocrit 47.6 % (40-54); Hemoglobin 15.6 g/dL (13.0-16.5); Lymphocyte # 1.65 X10^3/ul (0.83-4.51); Lymphocyte % 33.1 % (19-41); Mean Corp Hgb Conc 32.8 g/dL (32-36); Mean Corpuscular Hgb 28.7 pg (27.0-32.0); Mean Corpuscular Volume 87.7 fL (80-94); Monocyte# 0.38 X10^3/uL; Monocyte% 7.6 % (0-10); NRBC Flagged by Analyzer 0 % (0-5); Neutrophil # 2.83 X10^3/uL (2.7-7.7); Neutrophil % 56.7 % (47-70); Platelet Count 151 K/mm3 (150-450); RBC Distribution Width CV 12.3 % (11.6-14.6); RBC Distribution Width SD 39.4 fl (35.1-43.9); Red Blood Count 5.43 M/mm3 (4.6-6.2)
[2023-06-14 11:50] LABS: Absolute Lymphocyte Count 1.94 X10^3/uL (0.83-4.51); Absolute Neutrophil Count 3.2 X10^3/uL (2.0-7.7); Basophil# 0.02 X10^3/uL; Basophil% 0.3 % (0-1); Hematocrit 47.3 % (40-54); Hemoglobin 15.6 g/dL (13.0-16.5); Lymphocyte # 1.94 X10^3/ul (0.83-4.51); Lymphocyte % 33.7 % (19-41); Mean Corpuscular Hgb 28.9 pg (27.0-32.0); Mean Corpuscular Volume 87.6 fL (80-94); Mean Platelet Vol. 10.5 fl (6.2-12.0); Monocyte# 0.49 X10^3/uL; Monocyte% 8.5 % (0-10); NRBC Flagged by Analyzer 0 % (0-5); Neutrophil # 3.17 X10^3/uL (2.7-7.7); Neutrophil % 55.2 % (47-70); Platelet Count 160 K/mm3 (150-450); RBC Distribution Width CV 12.3 % (11.6-14.6); RBC Distribution Width SD 39.5 fl (35.1-43.9); White Blood Count 5.8 K/mm3 (4.4-11.0)
[2023-06-14 12:57] LABS: Valproic Acid (Depakene) Level 84 ug/mL (50-100)
[2023-06-28 11:02] LABS: Absolute Lymphocyte Count 1.87 X10^3/uL (0.83-4.51); Absolute Neutrophil Count 3.5 X10^3/uL (2.0-7.7); Basophil# 0.01 X10^3/uL; Basophil% 0.2 % (0-1); Lymphocyte # 1.87 X10^3/ul (0.83-4.51); Lymphocyte % 31.2 % (19-41); Mean Corp Hgb Conc 34.8 g/dL (32-36); Mean Corpuscular Hgb 29.3 pg (27.0-32.0); Mean Corpuscular Volume 84.2 fL (80-94); Mean Platelet Vol. 10.4 fl (6.2-12.0); Monocyte# 0.56 X10^3/uL; Monocyte% 9.3 % (0-10); NRBC Flagged by Analyzer 0 % (0-5); Neutrophil # 3.45 X10^3/uL (2.7-7.7); Neutrophil % 57.6 % (47-70); Platelet Count 163 K/mm3 (150-450); RBC Distribution Width CV 12.3 % (11.6-14.6); RBC Distribution Width SD 37.6 fl (35.1-43.9); Red Blood Count 5.46 M/mm3 (4.6-6.2)
== END 2023-06-28 23:32 | disposition home or self-care (01) ==
LOC: LAB 10:39
PROVIDERS: PCP Family Medicine; Referring Provider Student in an Organized Health Care Education/Training Program; Visit Provider Student in an Organized Health Care Education/Training Program
DX: F25.0 Schizoaffective disorder, bipolar type (principal)
CPT/HCPCS: 36415; 80164; 85025

== ENCOUNTER 2023-07-26 11:57 | Outpatient (RCR) | payer MEDICARE, MEDICAID, SELFPAY ==
[2023-07-12 13:23] LABS: Absolute Lymphocyte Count 1.73 X10^3/uL (0.83-4.51); Absolute Neutrophil Count 3.8 X10^3/uL (2.0-7.7); Basophil# 0.02 X10^3/uL; Basophil% 0.3 % (0-1); Hematocrit 46.9 % (40-54); Hemoglobin 15.6 g/dL (13.0-16.5); Lymphocyte # 1.73 X10^3/ul (0.83-4.51); Mean Corp Hgb Conc 33.3 g/dL (32-36); Mean Corpuscular Hgb 28.8 pg (27.0-32.0); Mean Corpuscular Volume 86.7 fL (80-94); Mean Platelet Vol. 10.8 fl (6.2-12.0); Monocyte# 0.53 X10^3/uL; Monocyte% 8.6 % (0-10); NRBC Flagged by Analyzer 0 % (0-5); Neutrophil # 3.79 X10^3/uL (2.7-7.7); Neutrophil % 61.3 % (47-70); Platelet Count 158 K/mm3 (150-450); RBC Distribution Width CV 12.2 % (11.6-14.6); RBC Distribution Width SD 38.5 fl (35.1-43.9); Red Blood Count 5.41 M/mm3 (4.6-6.2); White Blood Count 6.2 K/mm3 (4.4-11.0)
[2023-07-26 12:21] LABS: Absolute Lymphocyte Count 1.99 X10^3/uL (0.83-4.51); Absolute Neutrophil Count 3.4 X10^3/uL (2.0-7.7); Basophil# 0.01 X10^3/uL; Basophil% 0.2 % (0-1); Hemoglobin 16.2 g/dL (13.0-16.5); Lymphocyte # 1.99 X10^3/ul (0.83-4.51); Lymphocyte % 32.6 % (19-41); Mean Corp Hgb Conc 34.5 g/dL (32-36); Mean Corpuscular Hgb 29.9 pg (27.0-32.0); Mean Corpuscular Volume 86.7 fL (80-94); Mean Platelet Vol. 10.3 fl (6.2-12.0); Monocyte% 9.8 % (0-10); NRBC Flagged by Analyzer 0 % (0-5); Neutrophil # 3.41 X10^3/uL (2.7-7.7); Neutrophil % 55.9 % (47-70); Platelet Count 174 K/mm3 (150-450); RBC Distribution Width CV 12.4 % (11.6-14.6); RBC Distribution Width SD 38.9 fl (35.1-43.9); Red Blood Count 5.42 M/mm3 (4.6-6.2); White Blood Count 6.1 K/mm3 (4.4-11.0)
== END 2023-07-26 18:00 | disposition home or self-care (01) ==
LOC: LAB 11:57
PROVIDERS: PCP Family Medicine; Referring Provider Student in an Organized Health Care Education/Training Program; Visit Provider Student in an Organized Health Care Education/Training Program
DX: F25.0 Schizoaffective disorder, bipolar type (principal)
CPT/HCPCS: 36415; 85025

== ENCOUNTER 2023-08-23 11:36 | Outpatient (RCR) | payer MEDICARE, MEDICAID, SELFPAY ==
[2023-08-09 12:54] LABS: Absolute Lymphocyte Count 1.92 X10^3/uL (0.83-4.51); Absolute Neutrophil Count 4.6 X10^3/uL (2.0-7.7); Basophil# 0.02 X10^3/uL; Basophil% 0.3 % (0-1); Hematocrit 46.9 % (40-54); Hemoglobin 15.6 g/dL (13.0-16.5); Lymphocyte # 1.92 X10^3/ul (0.83-4.51); Lymphocyte % 26.8 % (19-41); Mean Corp Hgb Conc 33.3 g/dL (32-36); Mean Corpuscular Hgb 28.9 pg (27.0-32.0); Mean Corpuscular Volume 86.9 fL (80-94); Mean Platelet Vol. 10.9 fl (6.2-12.0); NRBC Flagged by Analyzer 0 % (0-5); Neutrophil # 4.59 X10^3/uL (2.7-7.7); Neutrophil % 64.1 % (47-70); Platelet Count 186 K/mm3 (150-450); RBC Distribution Width CV 12.1 % (11.6-14.6); RBC Distribution Width SD 38.3 fl (35.1-43.9); White Blood Count 7.2 K/mm3 (4.4-11.0)
[2023-08-23 12:19] LABS: Absolute Lymphocyte Count 1.98 X10^3/uL (0.83-4.51); Absolute Neutrophil Count 3.5 X10^3/uL (2.0-7.7); Basophil# 0.01 X10^3/uL; Basophil% 0.2 % (0-1); Hematocrit 48.8 % (40-54); Hemoglobin 16.5 g/dL (13.0-16.5); Lymphocyte # 1.98 X10^3/ul (0.83-4.51); Lymphocyte % 32.4 % (19-41); Mean Corp Hgb Conc 33.8 g/dL (32-36); Mean Corpuscular Hgb 29.4 pg (27.0-32.0); Mean Platelet Vol. 10.7 fl (6.2-12.0); Monocyte# 0.54 X10^3/uL; Monocyte% 8.8 % (0-10); NRBC Flagged by Analyzer 0 % (0-5); Neutrophil # 3.49 X10^3/uL (2.7-7.7); Neutrophil % 57.1 % (47-70); Platelet Count 165 K/mm3 (150-450); RBC Distribution Width SD 38.5 fl (35.1-43.9); Red Blood Count 5.61 M/mm3 (4.6-6.2); White Blood Count 6.1 K/mm3 (4.4-11.0)
== END 2023-08-23 18:00 | disposition home or self-care (01) ==
LOC: LAB 11:36
PROVIDERS: PCP Family Medicine; Referring Provider Student in an Organized Health Care Education/Training Program; Visit Provider Student in an Organized Health Care Education/Training Program
DX: F25.0 Schizoaffective disorder, bipolar type (principal); F31.62 Bipolar disorder, current episode mixed, moderate
CPT/HCPCS: 36415; 85025

== ENCOUNTER 2023-09-27 11:53 | Outpatient (RCR) | payer MEDICARE, MEDICAID, SELFPAY ==
[2023-08-30 12:27] LABS: Absolute Lymphocyte Count 1.73 X10^3/uL (0.83-4.51); Absolute Neutrophil Count 3.1 X10^3/uL (2.0-7.7); Basophil# 0.01 X10^3/uL; Basophil% 0.2 % (0-1); Hematocrit 44.8 % (40-54); Lymphocyte # 1.73 X10^3/ul (0.83-4.51); Lymphocyte % 32.4 % (19-41); Mean Corp Hgb Conc 33.5 g/dL (32-36); Mean Corpuscular Hgb 29.2 pg (27.0-32.0); Mean Corpuscular Volume 87.2 fL (80-94); Mean Platelet Vol. 10.5 fl (6.2-12.0); Monocyte# 0.42 X10^3/uL; Monocyte% 7.9 % (0-10); NRBC Flagged by Analyzer 0 % (0-5); Neutrophil # 3.07 X10^3/uL (2.7-7.7); Neutrophil % 57.4 % (47-70); Platelet Count 168 K/mm3 (150-450); RBC Distribution Width CV 12.1 % (11.6-14.6); RBC Distribution Width SD 38.5 fl (35.1-43.9); Red Blood Count 5.14 M/mm3 (4.6-6.2); White Blood Count 5.3 K/mm3 (4.4-11.0)
[2023-09-13 11:22] LABS: Absolute Lymphocyte Count 1.69 X10^3/uL (0.83-4.51); Absolute Neutrophil Count 3.5 X10^3/uL (2.0-7.7); Basophil# 0.02 X10^3/uL; Basophil% 0.4 % (0-1); Hematocrit 46.7 % (40-54); Hemoglobin 15.5 g/dL (13.0-16.5); Lymphocyte # 1.69 X10^3/ul (0.83-4.51); Lymphocyte % 29.6 % (19-41); Mean Corp Hgb Conc 33.2 g/dL (32-36); Mean Corpuscular Hgb 28.8 pg (27.0-32.0); Mean Corpuscular Volume 86.6 fL (80-94); Mean Platelet Vol. 10.5 fl (6.2-12.0); Monocyte# 0.38 X10^3/uL; Monocyte% 6.7 % (0-10); NRBC Flagged by Analyzer 0 % (0-5); Neutrophil # 3.45 X10^3/uL (2.7-7.7); Neutrophil % 60.5 % (47-70); Platelet Count 159 K/mm3 (150-450); RBC Distribution Width CV 11.9 % (11.6-14.6); RBC Distribution Width SD 37.5 fl (35.1-43.9); Red Blood Count 5.39 M/mm3 (4.6-6.2); White Blood Count 5.7 K/mm3 (4.4-11.0)
[2023-09-27 12:14] LABS: Absolute Lymphocyte Count 2.31 X10^3/uL (0.83-4.51); Absolute Neutrophil Count 3.9 X10^3/uL (2.0-7.7); Basophil# 0.02 X10^3/uL; Basophil% 0.3 % (0-1); Hematocrit 47.8 % (40-54); Hemoglobin 16.1 g/dL (13.0-16.5); Lymphocyte # 2.31 X10^3/ul (0.83-4.51); Lymphocyte % 34.5 % (19-41); Mean Corp Hgb Conc 33.7 g/dL (32-36); Mean Corpuscular Hgb 29.1 pg (27.0-32.0); Mean Corpuscular Volume 86.3 fL (80-94); Mean Platelet Vol. 10.4 fl (6.2-12.0); Monocyte# 0.43 X10^3/uL; Monocyte% 6.4 % (0-10); NRBC Flagged by Analyzer 0 % (0-5); Neutrophil # 3.85 X10^3/uL (2.7-7.7); Neutrophil % 57.6 % (47-70); Platelet Count 179 K/mm3 (150-450); RBC Distribution Width CV 11.9 % (11.6-14.6); RBC Distribution Width SD 37.2 fl (35.1-43.9); Red Blood Count 5.54 M/mm3 (4.6-6.2); White Blood Count 6.7 K/mm3 (4.4-11.0)
== END 2023-09-27 18:00 | disposition home or self-care (01) ==
LOC: LAB 11:53
PROVIDERS: PCP Family Medicine; Referring Provider Student in an Organized Health Care Education/Training Program; Visit Provider Student in an Organized Health Care Education/Training Program
DX: F25.0 Schizoaffective disorder, bipolar type (principal); F31.62 Bipolar disorder, current episode mixed, moderate
CPT/HCPCS: 36415; 85025

== ENCOUNTER 2023-10-25 10:45 | Outpatient (RCR) | payer MEDICARE, MEDICAID, SELFPAY ==
[2023-10-11 12:38] LABS: Absolute Lymphocyte Count 2.14 X10^3/uL (0.83-4.51); Absolute Neutrophil Count 3.7 X10^3/uL (2.0-7.7); Basophil# 0.01 X10^3/uL; Basophil% 0.2 % (0-1); Hematocrit 47.3 % (40-54); Hemoglobin 16.2 g/dL (13.0-16.5); Lymphocyte # 2.14 X10^3/ul (0.83-4.51); Lymphocyte % 33.9 % (19-41); Mean Corp Hgb Conc 34.2 g/dL (32-36); Mean Corpuscular Hgb 29.4 pg (27.0-32.0); Mean Corpuscular Volume 85.8 fL (80-94); Mean Platelet Vol. 10.4 fl (6.2-12.0); Monocyte# 0.42 X10^3/uL; Monocyte% 6.6 % (0-10); NRBC Flagged by Analyzer 0 % (0-5); Neutrophil # 3.68 X10^3/uL (2.7-7.7); Neutrophil % 58.2 % (47-70); Platelet Count 162 K/mm3 (150-450); RBC Distribution Width CV 11.9 % (11.6-14.6); RBC Distribution Width SD 37.2 fl (35.1-43.9); Red Blood Count 5.51 M/mm3 (4.6-6.2); White Blood Count 6.3 K/mm3 (4.4-11.0)
[2023-10-25 11:10] LABS: Absolute Lymphocyte Count 2.27 X10^3/uL (0.83-4.51); Absolute Neutrophil Count 3.4 X10^3/uL (2.0-7.7); Basophil# 0.01 X10^3/uL; Basophil% 0.2 % (0-1); Hematocrit 49.4 % (40-54); Hemoglobin 16.4 g/dL (13.0-16.5); Lymphocyte # 2.27 X10^3/ul (0.83-4.51); Lymphocyte % 36.7 % (19-41); Mean Corp Hgb Conc 33.2 g/dL (32-36); Mean Corpuscular Hgb 28.6 pg (27.0-32.0); Mean Corpuscular Volume 86.2 fL (80-94); Mean Platelet Vol. 10.6 fl (6.2-12.0); Monocyte# 0.39 X10^3/uL; Monocyte% 6.3 % (0-10); NRBC Flagged by Analyzer 0 % (0-5); Neutrophil # 3.41 X10^3/uL (2.7-7.7); Neutrophil % 55.2 % (47-70); Platelet Count 181 K/mm3 (150-450); RBC Distribution Width CV 12.2 % (11.6-14.6); Red Blood Count 5.73 M/mm3 (4.6-6.2); White Blood Count 6.2 K/mm3 (4.4-11.0)
== END 2023-10-28 18:00 | disposition home or self-care (01) ==
LOC: LAB 10:45
PROVIDERS: PCP Family Medicine; Referring Provider Student in an Organized Health Care Education/Training Program; Visit Provider Student in an Organized Health Care Education/Training Program
DX: F25.0 Schizoaffective disorder, bipolar type (principal)
CPT/HCPCS: 36415; 85025

== ENCOUNTER 2023-11-09 13:15 | Outpatient (RCR) | payer MEDICARE, MEDICAID, SELFPAY ==
[2023-11-09 13:36] LABS: Absolute Lymphocyte Count 2.36 X10^3/uL (0.83-4.51); Absolute Neutrophil Count 3.2 X10^3/uL (2.0-7.7); Basophil# 0.02 X10^3/uL; Basophil% 0.3 % (0-1); Hematocrit 50.5 % (40-54); Hemoglobin 16.7 g/dL (13.0-16.5); Lymphocyte # 2.36 X10^3/ul (0.83-4.51); Lymphocyte % 38.8 % (19-41); Mean Corp Hgb Conc 33.1 g/dL (32-36); Mean Corpuscular Hgb 28.5 pg (27.0-32.0); Mean Corpuscular Volume 86.3 fL (80-94); Mean Platelet Vol. 10.6 fl (6.2-12.0); Monocyte# 0.42 X10^3/uL; Monocyte% 6.9 % (0-10); NRBC Flagged by Analyzer 0 % (0-5); Neutrophil # 3.22 X10^3/uL (2.7-7.7); Platelet Count 180 K/mm3 (150-450); RBC Distribution Width CV 11.9 % (11.6-14.6); RBC Distribution Width SD 37.9 fl (35.1-43.9); Red Blood Count 5.85 M/mm3 (4.6-6.2); White Blood Count 6.1 K/mm3 (4.4-11.0)
== END 2023-11-28 18:00 | disposition home or self-care (01) ==
LOC: LAB 13:15
PROVIDERS: PCP Family Medicine; Referring Provider Student in an Organized Health Care Education/Training Program; Visit Provider Student in an Organized Health Care Education/Training Program
DX: F25.0 Schizoaffective disorder, bipolar type (principal)
CPT/HCPCS: 36415; 85025

== ENCOUNTER 2023-12-10 13:12 | Outpatient (RCR) | payer MEDICARE, MEDICAID, SELFPAY ==
[2023-12-10 13:37] LABS: Absolute Lymphocyte Count 2.14 X10^3/uL (0.83-4.51); Absolute Neutrophil Count 3.7 X10^3/uL (2.0-7.7); Basophil# 0.03 X10^3/uL; Basophil% 0.5 % (0-1); Hematocrit 49.2 % (40-54); Hemoglobin 16.4 g/dL (13.0-16.5); Lymphocyte # 2.14 X10^3/ul (0.83-4.51); Lymphocyte % 33.4 % (19-41); Mean Corp Hgb Conc 33.3 g/dL (32-36); Mean Corpuscular Hgb 28.6 pg (27.0-32.0); Mean Corpuscular Volume 85.7 fL (80-94); Mean Platelet Vol. 10.7 fl (6.2-12.0); Monocyte# 0.45 X10^3/uL; NRBC Flagged by Analyzer 0 % (0-5); Neutrophil # 3.68 X10^3/uL (2.7-7.7); Neutrophil % 57.5 % (47-70); Platelet Count 175 K/mm3 (150-450); RBC Distribution Width SD 37.6 fl (35.1-43.9); Red Blood Count 5.74 M/mm3 (4.6-6.2); White Blood Count 6.4 K/mm3 (4.4-11.0)
== END 2023-12-10 18:00 | disposition home or self-care (01) ==
LOC: LAB 13:12
PROVIDERS: PCP Family Medicine; Referring Provider Student in an Organized Health Care Education/Training Program; Visit Provider Student in an Organized Health Care Education/Training Program
DX: F25.0 Schizoaffective disorder, bipolar type (principal); Z51.81 Encounter for therapeutic drug level monitoring
CPT/HCPCS: 36415; 85025

== ENCOUNTER 2024-01-11 13:54 | Outpatient (RCR) | payer MEDICARE, MEDICAID, SELFPAY ==
[2024-01-11 14:27] LABS: Absolute Lymphocyte Count 2.18 X10^3/uL (0.83-4.51); Absolute Neutrophil Count 3.4 X10^3/uL (2.0-7.7); Basophil# 0.02 X10^3/uL; Basophil% 0.3 % (0-1); Hematocrit 47.9 % (40-54); Lymphocyte # 2.18 X10^3/ul (0.83-4.51); Lymphocyte % 34.9 % (19-41); Mean Corp Hgb Conc 33.4 g/dL (32-36); Mean Corpuscular Hgb 28.6 pg (27.0-32.0); Mean Corpuscular Volume 85.7 fL (80-94); Mean Platelet Vol. 10.4 fl (6.2-12.0); Monocyte# 0.57 X10^3/uL; Monocyte% 9.1 % (0-10); NRBC Flagged by Analyzer 0 % (0-5); Neutrophil % 54.4 % (47-70); Platelet Count 175 K/mm3 (150-450); RBC Distribution Width CV 12.2 % (11.6-14.6); RBC Distribution Width SD 38.4 fl (35.1-43.9); Red Blood Count 5.59 M/mm3 (4.6-6.2); White Blood Count 6.3 K/mm3 (4.4-11.0)
== END 2024-01-27 18:00 | disposition home or self-care (01) ==
LOC: LAB 13:54
PROVIDERS: PCP Family Medicine; Referring Provider Student in an Organized Health Care Education/Training Program; Visit Provider Student in an Organized Health Care Education/Training Program
DX: F25.0 Schizoaffective disorder, bipolar type (principal); Z51.81 Encounter for therapeutic drug level monitoring
CPT/HCPCS: 36415; 85025

== ENCOUNTER 2024-02-10 13:42 | Outpatient (RCR) | payer MEDICARE, MEDICAID, SELFPAY ==
[2024-02-10 16:17] LABS: Absolute Lymphocyte Count 1.83 X10^3/uL (0.83-4.51); Absolute Neutrophil Count 3.7 X10^3/uL (2.0-7.7); Basophil# 0.05 X10^3/uL; Basophil% 0.8 % (0-1); Hematocrit 46.1 % (40-54); Hemoglobin 15.7 g/dL (13.0-16.5); Lymphocyte # 1.83 X10^3/ul (0.83-4.51); Lymphocyte % 28.9 % (19-41); Mean Corp Hgb Conc 34.1 g/dL (32-36); Mean Corpuscular Hgb 28.8 pg (27.0-32.0); Mean Corpuscular Volume 84.4 fL (80-94); Mean Platelet Vol. 10.7 fl (6.2-12.0); Monocyte# 0.67 X10^3/uL; Monocyte% 10.6 % (0-10); NRBC Flagged by Analyzer 0 % (0-5); Neutrophil # 3.66 X10^3/uL (2.7-7.7); Neutrophil % 57.8 % (47-70); Platelet Count 177 K/mm3 (150-450); RBC Distribution Width CV 12.2 % (11.6-14.6); RBC Distribution Width SD 37.1 fl (35.1-43.9); Red Blood Count 5.46 M/mm3 (4.6-6.2); White Blood Count 6.3 K/mm3 (4.4-11.0)
== END 2024-02-26 18:00 | disposition home or self-care (01) ==
LOC: LAB 13:42
PROVIDERS: PCP Family Medicine; Referring Provider Student in an Organized Health Care Education/Training Program; Visit Provider Student in an Organized Health Care Education/Training Program
DX: Z51.81 Encounter for therapeutic drug level monitoring; F31.62 Bipolar disorder, current episode mixed, moderate; Z79.899 Other long term (current) drug therapy
CPT/HCPCS: 36415; 85025

== ENCOUNTER 2024-03-10 14:10 | Outpatient (RCR) | payer MEDICARE, MEDICAID, SELFPAY ==
[2024-03-10 15:27] LABS: Absolute Lymphocyte Count 1.69 X10^3/uL (0.83-4.51); Absolute Neutrophil Count 3.9 X10^3/uL (2.0-7.7); Basophil# 0.02 X10^3/uL; Basophil% 0.3 % (0-1); Hematocrit 49.7 % (40-54); Hemoglobin 16.5 g/dL (13.0-16.5); Lymphocyte # 1.69 X10^3/ul (0.83-4.51); Lymphocyte % 27.5 % (19-41); Mean Corp Hgb Conc 33.2 g/dL (32-36); Mean Corpuscular Hgb 28.5 pg (27.0-32.0); Mean Corpuscular Volume 85.8 fL (80-94); Mean Platelet Vol. 10.4 fl (6.2-12.0); Monocyte# 0.41 X10^3/uL; Monocyte% 6.7 % (0-10); NRBC Flagged by Analyzer 0 % (0-5); Neutrophil # 3.92 X10^3/uL (2.7-7.7); Neutrophil % 63.9 % (47-70); Platelet Count 175 K/mm3 (150-450); RBC Distribution Width CV 12.2 % (11.6-14.6); RBC Distribution Width SD 37.7 fl (35.1-43.9); Red Blood Count 5.79 M/mm3 (4.6-6.2); White Blood Count 6.1 K/mm3 (4.4-11.0)
== END 2024-03-28 22:31 | disposition home or self-care (01) ==
LOC: LAB 14:10
PROVIDERS: PCP Family Medicine; Referring Provider Student in an Organized Health Care Education/Training Program; Visit Provider Student in an Organized Health Care Education/Training Program
DX: F25.0 Schizoaffective disorder, bipolar type (principal); F31.62 Bipolar disorder, current episode mixed, moderate; Z79.899 Other long term (current) drug therapy; F20.9 Schizophrenia, unspecified
CPT/HCPCS: 36415; 85025

== ENCOUNTER 2024-04-11 14:02 | Outpatient (RCR) | payer MEDICARE, MEDICAID, SELFPAY ==
[2024-04-11 15:16] LABS: Absolute Neutrophil Count 8.1 X10^3/uL (2.0-7.7); Basophil# 0.02 X10^3/uL; Basophil% 0.2 % (0-1); Hematocrit 46.5 % (40-54); Hemoglobin 15.9 g/dL (13.0-16.5); Lymphocyte % 15.3 % (19-41); Mean Corp Hgb Conc 34.2 g/dL (32-36); Mean Corpuscular Hgb 28.8 pg (27.0-32.0); Mean Corpuscular Volume 84.1 fL (80-94); Mean Platelet Vol. 10.4 fl (6.2-12.0); Monocyte# 0.64 X10^3/uL; Monocyte% 6.1 % (0-10); NRBC Flagged by Analyzer 0 % (0-5); Neutrophil # 8.13 X10^3/uL (2.7-7.7); Neutrophil % 77.5 % (47-70); Platelet Count 167 K/mm3 (150-450); RBC Distribution Width CV 12.2 % (11.6-14.6); Red Blood Count 5.53 M/mm3 (4.6-6.2); White Blood Count 10.5 K/mm3 (4.4-11.0)
== END 2024-04-11 18:00 | disposition home or self-care (01) ==
LOC: LAB 14:02
PROVIDERS: PCP Family Medicine; Referring Provider Student in an Organized Health Care Education/Training Program; Visit Provider Student in an Organized Health Care Education/Training Program
DX: F25.0 Schizoaffective disorder, bipolar type (principal); F31.62 Bipolar disorder, current episode mixed, moderate; Z79.899 Other long term (current) drug therapy
CPT/HCPCS: 85025

== ENCOUNTER 2024-05-10 12:34 | Outpatient (RCR) | payer MEDICARE, MEDICAID, SELFPAY ==
[2024-05-10 13:02] LABS: Absolute Lymphocyte Count 1.67 X10^3/uL (0.83-4.51); Absolute Neutrophil Count 2.6 X10^3/uL (2.0-7.7); Basophil# 0.01 X10^3/uL; Basophil% 0.2 % (0-1); Hematocrit 47.3 % (40-54); Hemoglobin 16.3 g/dL (13.0-16.5); Lymphocyte # 1.67 X10^3/ul (0.83-4.51); Lymphocyte % 36.1 % (19-41); Mean Corp Hgb Conc 34.5 g/dL (32-36); Mean Platelet Vol. 10.3 fl (6.2-12.0); Monocyte# 0.26 X10^3/uL; Monocyte% 5.6 % (0-10); NRBC Flagged by Analyzer 0 % (0-5); Neutrophil # 2.61 X10^3/uL (2.7-7.7); Neutrophil % 56.6 % (47-70); Platelet Count 154 K/mm3 (150-450); RBC Distribution Width CV 11.9 % (11.6-14.6); RBC Distribution Width SD 36.1 fl (35.1-43.9); Red Blood Count 5.63 M/mm3 (4.6-6.2); White Blood Count 4.6 K/mm3 (4.4-11.0)
== END 2024-05-10 18:00 | disposition home or self-care (01) ==
LOC: LAB 12:34
PROVIDERS: PCP Family Medicine; Referring Provider Student in an Organized Health Care Education/Training Program; Visit Provider Student in an Organized Health Care Education/Training Program
DX: F25.0 Schizoaffective disorder, bipolar type (principal); Z51.81 Encounter for therapeutic drug level monitoring; F31.62 Bipolar disorder, current episode mixed, moderate; F20.9 Schizophrenia, unspecified
CPT/HCPCS: 36415; 85025

== ENCOUNTER 2024-06-13 14:13 | Outpatient (RCR) | payer MEDICARE, MEDICAID, SELFPAY ==
[2024-06-13 14:40] LABS: Absolute Lymphocyte Count 1.93 X10^3/uL (0.83-4.51); Absolute Neutrophil Count 3.7 X10^3/uL (2.0-7.7); Basophil# 0.01 X10^3/uL; Basophil% 0.2 % (0-1); Hematocrit 46.8 % (40-54); Hemoglobin 16.1 g/dL (13.0-16.5); Lymphocyte # 1.93 X10^3/ul (0.83-4.51); Lymphocyte % 31.8 % (19-41); Mean Corp Hgb Conc 34.4 g/dL (32-36); Mean Corpuscular Hgb 29.1 pg (27.0-32.0); Mean Corpuscular Volume 84.5 fL (80-94); Mean Platelet Vol. 9.9 fl (6.2-12.0); Monocyte# 0.31 X10^3/uL; Monocyte% 5.1 % (0-10); NRBC Flagged by Analyzer 0 % (0-5); Neutrophil % 60.9 % (47-70); Platelet Count 165 K/mm3 (150-450); RBC Distribution Width CV 12.3 % (11.6-14.6); RBC Distribution Width SD 37.3 fl (35.1-43.9); Red Blood Count 5.54 M/mm3 (4.6-6.2); White Blood Count 6.1 K/mm3 (4.4-11.0)
== END 2024-06-28 18:00 | disposition home or self-care (01) ==
LOC: LAB 14:13
PROVIDERS: PCP Family Medicine; Referring Provider Student in an Organized Health Care Education/Training Program; Visit Provider Student in an Organized Health Care Education/Training Program
DX: F25.0 Schizoaffective disorder, bipolar type (principal); Z51.81 Encounter for therapeutic drug level monitoring
CPT/HCPCS: 36415; 85025

== ENCOUNTER 2024-07-13 07:48 | Outpatient (RCR) | payer MEDICARE, MEDICAID, SELFPAY ==
[2024-07-13 08:49] LABS: Absolute Lymphocyte Count 2.44 X10^3/uL (0.83-4.51); Absolute Neutrophil Count 3.2 X10^3/uL (2.0-7.7); Basophil# 0.03 X10^3/uL; Basophil% 0.5 % (0-1); Hematocrit 45.8 % (40-54); Hemoglobin 15.4 g/dL (13.0-16.5); Lymphocyte # 2.44 X10^3/ul (0.83-4.51); Lymphocyte % 37.5 % (19-41); Mean Corp Hgb Conc 33.6 g/dL (32-36); Mean Corpuscular Hgb 28.5 pg (27.0-32.0); Mean Corpuscular Volume 84.8 fL (80-94); Mean Platelet Vol. 10.3 fl (6.2-12.0); Monocyte# 0.67 X10^3/uL; Monocyte% 10.3 % (0-10); NRBC Flagged by Analyzer 0 % (0-5); Neutrophil # 3.23 X10^3/uL (2.7-7.7); Neutrophil % 49.7 % (47-70); Platelet Count 185 K/mm3 (150-450); RBC Distribution Width CV 12.1 % (11.6-14.6); RBC Distribution Width SD 36.9 fl (35.1-43.9); White Blood Count 6.5 K/mm3 (4.4-11.0)
== END 2024-07-13 18:00 | disposition home or self-care (01) ==
LOC: LAB 07:48
PROVIDERS: PCP Family Medicine; Referring Provider Student in an Organized Health Care Education/Training Program; Visit Provider Student in an Organized Health Care Education/Training Program
DX: Z51.81 Encounter for therapeutic drug level monitoring; F31.62 Bipolar disorder, current episode mixed, moderate; F20.9 Schizophrenia, unspecified; Z79.899 Other long term (current) drug therapy; F25.0 Schizoaffective disorder, bipolar type
CPT/HCPCS: 36415; 85025

== ENCOUNTER 2024-08-08 14:33 | Outpatient (RCR) | payer MEDICARE, MEDICAID, SELFPAY ==
[2024-08-08 15:05] LABS: Absolute Lymphocyte Count 2.21 X10^3/uL (0.83-4.51); Absolute Neutrophil Count 3.4 X10^3/uL (2.0-7.7); Basophil# 0.01 X10^3/uL; Basophil% 0.2 % (0-1); Hematocrit 46.9 % (40-54); Hemoglobin 16.1 g/dL (13.0-16.5); Lymphocyte # 2.21 X10^3/ul (0.83-4.51); Lymphocyte % 36.2 % (19-41); Mean Corp Hgb Conc 34.3 g/dL (32-36); Mean Corpuscular Hgb 28.8 pg (27.0-32.0); Mean Corpuscular Volume 83.9 fL (80-94); Mean Platelet Vol. 9.9 fl (6.2-12.0); Monocyte# 0.38 X10^3/uL; Monocyte% 6.2 % (0-10); NRBC Flagged by Analyzer 0 % (0-5); Neutrophil # 3.37 X10^3/uL (2.7-7.7); Neutrophil % 55.3 % (47-70); Platelet Count 192 K/mm3 (150-450); RBC Distribution Width CV 12.3 % (11.6-14.6); RBC Distribution Width SD 36.8 fl (35.1-43.9); Red Blood Count 5.59 M/mm3 (4.6-6.2); White Blood Count 6.1 K/mm3 (4.4-11.0)
== END 2024-08-08 18:00 | disposition home or self-care (01) ==
LOC: LAB 14:33
PROVIDERS: PCP Family Medicine; Referring Provider Student in an Organized Health Care Education/Training Program; Visit Provider Student in an Organized Health Care Education/Training Program
DX: F25.0 Schizoaffective disorder, bipolar type (principal); F31.62 Bipolar disorder, current episode mixed, moderate; F20.9 Schizophrenia, unspecified; Z79.899 Other long term (current) drug therapy
CPT/HCPCS: 36415; 85025

== ENCOUNTER 2024-09-12 13:35 | Outpatient (RCR) | payer MEDICARE, MEDICAID, SELFPAY ==
[2024-09-12 14:03] LABS: Absolute Lymphocyte Count 1.61 X10^3/uL (0.83-4.51); Basophil# 0.01 X10^3/uL; Basophil% 0.2 % (0-1); Hematocrit 46.2 % (40-54); Hemoglobin 15.3 g/dL (13.0-16.5); Lymphocyte # 1.61 X10^3/ul (0.83-4.51); Lymphocyte % 31.3 % (19-41); Mean Corp Hgb Conc 33.1 g/dL (32-36); Mean Corpuscular Hgb 28.7 pg (27.0-32.0); Mean Corpuscular Volume 86.7 fL (80-94); Mean Platelet Vol. 10.2 fl (6.2-12.0); Monocyte# 0.34 X10^3/uL; Monocyte% 6.6 % (0-10); NRBC Flagged by Analyzer 0 % (0-5); Neutrophil # 3.04 X10^3/uL (2.7-7.7); Platelet Count 153 K/mm3 (150-450); RBC Distribution Width CV 12.6 % (11.6-14.6); RBC Distribution Width SD 39.4 fl (35.1-43.9); Red Blood Count 5.33 M/mm3 (4.6-6.2); White Blood Count 5.2 K/mm3 (4.4-11.0)
== END 2024-09-12 18:00 | disposition home or self-care (01) ==
LOC: LAB 13:35
PROVIDERS: PCP Family Medicine; Referring Provider Student in an Organized Health Care Education/Training Program; Visit Provider Student in an Organized Health Care Education/Training Program
DX: F25.0 Schizoaffective disorder, bipolar type (principal); Z51.81 Encounter for therapeutic drug level monitoring; F31.62 Bipolar disorder, current episode mixed, moderate; Z79.899 Other long term (current) drug therapy
CPT/HCPCS: 36415; 85025

== ENCOUNTER 2024-10-09 15:03 | Outpatient (RCR) | payer MEDICARE, MEDICAID, SELFPAY ==
[2024-10-09 15:40] LABS: Absolute Neutrophil Count 3.7 X10^3/uL (2.0-7.7); Basophil# 0.02 X10^3/uL; Basophil% 0.3 % (0-1); Hematocrit 46.2 % (40-54); Hemoglobin 15.4 g/dL (13.0-16.5); Lymphocyte % 31.5 % (19-41); Mean Corp Hgb Conc 33.3 g/dL (32-36); Mean Corpuscular Hgb 28.5 pg (27.0-32.0); Mean Corpuscular Volume 85.6 fL (80-94); Mean Platelet Vol. 10.2 fl (6.2-12.0); Monocyte# 0.44 X10^3/uL; Monocyte% 6.9 % (0-10); NRBC Flagged by Analyzer 0 % (0-5); Neutrophil % 58.3 % (47-70); Platelet Count 165 K/mm3 (150-450); RBC Distribution Width CV 12.6 % (11.6-14.6); White Blood Count 6.4 K/mm3 (4.4-11.0)
== END 2024-10-28 18:00 | disposition home or self-care (01) ==
LOC: LAB 15:03
PROVIDERS: PCP Family Medicine; Referring Provider Student in an Organized Health Care Education/Training Program; Visit Provider Student in an Organized Health Care Education/Training Program
DX: F25.0 Schizoaffective disorder, bipolar type (principal); F31.62 Bipolar disorder, current episode mixed, moderate
CPT/HCPCS: 36415; 85025

== ENCOUNTER 2024-11-09 13:57 | Outpatient (RCR) | payer MEDICARE, MEDICAID, SELFPAY ==
[2024-11-09 14:40] LABS: Hematocrit 47.8 % (40-54); Hemoglobin 16.1 g/dL (13.0-16.5); Mean Corp Hgb Conc 33.7 g/dL (32-36); Mean Corpuscular Hgb 28.3 pg (27.0-32.0); Mean Platelet Vol. 9.6 fl (6.2-12.0); POSITIVE COUNT YES; POSITIVE MORPHOLOGY YES; Platelet Count 211 K/mm3 (150-450); RBC Distribution Width CV 12.2 % (11.6-14.6); RBC Distribution Width SD 36.7 fl (35.1-43.9); Red Blood Count 5.69 M/mm3 (4.6-6.2); White Blood Count 6.6 K/mm3 (4.4-11.0)
[2024-11-09 14:47] LABS: Differential Indicated MANUAL DIFF
[2024-11-09 15:07] LABS: Valproic Acid (Depakene) Level 75 ug/mL (50-100)
[2024-11-09 15:07] LABS: Lymphocyte 45 % (19-41); Monocyte 2 % (0-10); Neutrophil-Band 1 % (0-5); Neutrophil-Segmented 52 % (47-70); Total Cells Counted 100 (MANUAL DIFF)
[2024-11-09 15:08] LABS: Platelet Estimate ADEQUATE (ADEQ); Reactive Lymphocyte 1+; Red Cell Morphology NORM C+C NORMAL (NORM C&C)
[2024-11-09 15:09] LABS: Absolute Lymphocyte Count 2.98 X10^3/uL (0.83-4.51); Absolute Neutrophil Count 3.5 X10^3/uL (2.0-7.7)
[2024-11-09 17:33] LABS: Scan Smear per Review Criteria MANUAL DIFF
== END 2024-11-09 18:00 | disposition home or self-care (01) ==
LOC: LAB 13:57
PROVIDERS: PCP Family Medicine; Referring Provider Student in an Organized Health Care Education/Training Program; Visit Provider Student in an Organized Health Care Education/Training Program
DX: F25.0 Schizoaffective disorder, bipolar type (principal); Z51.81 Encounter for therapeutic drug level monitoring
CPT/HCPCS: 36415; 80164; 82140; 85025

== ENCOUNTER 2024-12-22 12:49 | Outpatient (RCR) | payer MEDICARE, MEDICAID, SELFPAY ==
[2024-12-22 13:37] LABS: Absolute Lymphocyte Count 1.95 X10^3/uL (0.83-4.51); Basophil# 0.03 X10^3/uL; Basophil% 0.5 % (0-1); Hematocrit 47.3 % (40-54); Hemoglobin 16.2 g/dL (13.0-16.5); Lymphocyte # 1.95 X10^3/ul (0.83-4.51); Lymphocyte % 34.7 % (19-41); Mean Corp Hgb Conc 34.2 g/dL (32-36); Mean Corpuscular Hgb 29.2 pg (27.0-32.0); Mean Corpuscular Volume 85.2 fL (80-94); Mean Platelet Vol. 10.3 fl (6.2-12.0); Monocyte# 0.53 X10^3/uL; Monocyte% 9.4 % (0-10); NRBC Flagged by Analyzer 0 % (0-5); Neutrophil # 3.02 X10^3/uL (2.7-7.7); Neutrophil % 53.8 % (47-70); Platelet Count 160 K/mm3 (150-450); RBC Distribution Width CV 12.5 % (11.6-14.6); RBC Distribution Width SD 38.8 fl (35.1-43.9); Red Blood Count 5.55 M/mm3 (4.6-6.2); White Blood Count 5.6 K/mm3 (4.4-11.0)
== END 2024-12-22 18:00 | disposition home or self-care (01) ==
LOC: LAB 12:49
PROVIDERS: PCP Family Medicine; Referring Provider Student in an Organized Health Care Education/Training Program; Visit Provider Student in an Organized Health Care Education/Training Program
DX: Z51.81 Encounter for therapeutic drug level monitoring
CPT/HCPCS: 36415; 85025

== ENCOUNTER 2025-02-16 15:30 | Outpatient (RCR) | payer MEDICARE, MEDICAID, SELFPAY ==
[2025-02-16 16:57] LABS: Absolute Lymphocyte Count 2.34 X10^3/uL (0.83-4.51); Absolute Neutrophil Count 5.6 X10^3/uL (2.0-7.7); Basophil# 0.02 X10^3/uL; Basophil% 0.2 % (0-1); Hemoglobin 16.2 g/dL (13.0-16.5); Lymphocyte # 2.34 X10^3/ul (0.83-4.51); Lymphocyte % 27.5 % (19-41); Mean Corp Hgb Conc 34.5 g/dL (32-36); Mean Corpuscular Hgb 29.1 pg (27.0-32.0); Mean Corpuscular Volume 84.5 fL (80-94); Mean Platelet Vol. 10.6 fl (6.2-12.0); Monocyte% 4.7 % (0-10); NRBC Flagged by Analyzer 0 % (0-5); Neutrophil # 5.62 X10^3/uL (2.7-7.7); Neutrophil % 66.1 % (47-70); Platelet Count 176 K/mm3 (150-450); RBC Distribution Width CV 12.5 % (11.6-14.6); RBC Distribution Width SD 37.6 fl (35.1-43.9); Red Blood Count 5.56 M/mm3 (4.6-6.2); White Blood Count 8.5 K/mm3 (4.4-11.0)
== END 2025-02-16 18:00 | disposition home or self-care (01) ==
LOC: LAB 15:30
PROVIDERS: PCP Family Medicine; Referring Provider Student in an Organized Health Care Education/Training Program; Visit Provider Student in an Organized Health Care Education/Training Program
DX: F25.0 Schizoaffective disorder, bipolar type (principal)
CPT/HCPCS: 36415; 85025

== ENCOUNTER 2025-03-13 12:44 | Outpatient (RCR) | payer MEDICARE, MEDICAID, SELFPAY ==
[2025-03-13 14:05] LABS: Absolute Lymphocyte Count 2.44 X10^3/uL (0.83-4.51); Absolute Neutrophil Count 8.9 X10^3/uL (2.0-7.7); Basophil# 0.03 X10^3/uL; Basophil% 0.2 % (0-1); Hematocrit 45.8 % (40-54); Lymphocyte # 2.44 X10^3/ul (0.83-4.51); Lymphocyte % 19.4 % (19-41); Mean Corp Hgb Conc 34.9 g/dL (32-36); Mean Corpuscular Hgb 29.3 pg (27.0-32.0); Mean Corpuscular Volume 83.9 fL (80-94); Mean Platelet Vol. 10.4 fl (6.2-12.0); NRBC Flagged by Analyzer 0 % (0-5); Neutrophil # 8.89 X10^3/uL (2.7-7.7); Neutrophil % 70.7 % (47-70); Platelet Count 172 K/mm3 (150-450); RBC Distribution Width CV 12.3 % (11.6-14.6); RBC Distribution Width SD 37.2 fl (35.1-43.9); Red Blood Count 5.46 M/mm3 (4.6-6.2); White Blood Count 12.6 K/mm3 (4.4-11.0)
== END 2025-03-28 18:00 | disposition home or self-care (01) ==
LOC: LAB 12:44
PROVIDERS: PCP Family Medicine; Referring Provider Student in an Organized Health Care Education/Training Program; Visit Provider Student in an Organized Health Care Education/Training Program
DX: Z51.81 Encounter for therapeutic drug level monitoring; F31.62 Bipolar disorder, current episode mixed, moderate; F25.0 Schizoaffective disorder, bipolar type
CPT/HCPCS: 36415; 85025

== ENCOUNTER 2025-04-10 13:53 | Outpatient (RCR) | payer MEDICARE, MEDICAID, SELFPAY ==
[2025-04-10 15:19] LABS: Absolute Neutrophil Count 4.2 X10^3/uL (2.0-7.7); Basophil# 0.05 X10^3/uL; Basophil% 0.7 % (0-1); Hematocrit 45.6 % (40-54); Hemoglobin 15.5 g/dL (13.0-16.5); Lymphocyte % 29.6 % (19-41); Mean Corpuscular Hgb 29.1 pg (27.0-32.0); Mean Corpuscular Volume 85.7 fL (80-94); Mean Platelet Vol. 10.2 fl (6.2-12.0); Monocyte# 0.52 X10^3/uL; Monocyte% 7.3 % (0-10); NRBC Flagged by Analyzer 0 % (0-5); Neutrophil # 4.17 X10^3/uL (2.7-7.7); Neutrophil % 58.7 % (47-70); Platelet Count 177 K/mm3 (150-450); RBC Distribution Width CV 12.5 % (11.6-14.6); RBC Distribution Width SD 38.7 fl (35.1-43.9); Red Blood Count 5.32 M/mm3 (4.6-6.2); White Blood Count 7.1 K/mm3 (4.4-11.0)
== END 2025-04-10 18:00 | disposition home or self-care (01) ==
LOC: LAB 13:53
PROVIDERS: PCP Family Medicine; Referring Provider Student in an Organized Health Care Education/Training Program; Visit Provider Student in an Organized Health Care Education/Training Program
DX: Z51.81 Encounter for therapeutic drug level monitoring; F31.62 Bipolar disorder, current episode mixed, moderate; F25.0 Schizoaffective disorder, bipolar type; Z79.899 Other long term (current) drug therapy
CPT/HCPCS: 36415; 85025

== ENCOUNTER 2025-05-17 14:30 | Outpatient (RCR) | payer MEDICARE, MEDICAID, SELFPAY ==
[2025-05-17 15:39] LABS: Absolute Lymphocyte Count 2.03 X10^3/uL (0.83-4.51); Basophil# 0.02 X10^3/uL; Basophil% 0.3 % (0-1); Hematocrit 46.5 % (40-54); Hemoglobin 15.9 g/dL (13.0-16.5); Lymphocyte # 2.03 X10^3/ul (0.83-4.51); Lymphocyte % 29.3 % (19-41); Mean Corp Hgb Conc 34.2 g/dL (32-36); Mean Corpuscular Volume 84.7 fL (80-94); Mean Platelet Vol. 10.2 fl (6.2-12.0); Monocyte# 0.64 X10^3/uL; Monocyte% 9.2 % (0-10); NRBC Flagged by Analyzer 0 % (0-5); Neutrophil # 3.98 X10^3/uL (2.7-7.7); Neutrophil % 57.4 % (47-70); Platelet Count 190 K/mm3 (150-450); RBC Distribution Width CV 12.4 % (11.6-14.6); RBC Distribution Width SD 37.8 fl (35.1-43.9); Red Blood Count 5.49 M/mm3 (4.6-6.2); White Blood Count 6.9 K/mm3 (4.4-11.0)
[2025-05-17 16:30] LABS: ALB/GLOB Ratio 1.6 RATIO (0.9-2.4); AST(SGOT) 42 U/L (<=37); Alanine Aminotransfer ALT/SGPT 68 U/L (<=46); Albumin, Serum 4.4 g/dL (3.5-5.0); Alkaline Phosphatase 127 U/L (40-129); Anion Gap 13 (5-15); BUN 15 mg/dL (4-19); BUN/Creat Ratio 19.7 RATIO (10-20); Calcium,Total 9.3 mg/dL (7.6-11.0); Carbon Dioxide 22.5 mmol/L (21.0-32.0); Chloride 105 mmol/L (98-108); Cholesterol 242 mg/dL (<=200); Creatinine, Serum 0.78 mg/dL (0.70-1.20); EST Glomerular Filtration Rate 118 (>60); Globulin 2.8 g/dL (2.2-4.2); Glucose 86 mg/dL (70-99); Hemoglobin A1c 5.4 % (<=5.6); Potassium 4.1 mmol/L (3.3-5.1); Protein, Total 7.2 g/dL (5.9-8.4); Sodium Level 141 mmol/L (133-145); Total Bilirubin 0.28 mg/dL (0.00-1.30)
== END 2025-05-17 18:00 | disposition home or self-care (01) ==
LOC: LAB 14:30
PROVIDERS: PCP Family Medicine; Referring Provider Student in an Organized Health Care Education/Training Program; Visit Provider Student in an Organized Health Care Education/Training Program
DX: Z51.81 Encounter for therapeutic drug level monitoring; F25.0 Schizoaffective disorder, bipolar type; Z79.899 Other long term (current) drug therapy
CPT/HCPCS: 36415; 80053; 82465; 83036; 85025

== ENCOUNTER 2025-06-22 12:50 | Outpatient (RCR) | payer MEDICARE, MEDICAID, SELFPAY ==
[2025-06-22 13:37] LABS: Hematocrit 45.6 % (40-54); Hemoglobin 15.3 g/dL (13.0-16.5); Immature Granulocytes Count 0.350 X10^3/uL (0.0-0.0); Mean Corp Hgb Conc 33.6 g/dL (32-36); Mean Corpuscular Volume 85.4 fL (80-94); Mean Platelet Vol. 10.6 fl (6.2-12.0); NRBC Flagged by Analyzer 0 % (0-5); Platelet Count 157 K/mm3 (150-450); RBC Distribution Width CV 12.7 % (11.6-14.6); RBC Distribution Width SD 39.0 fl (35.1-43.9); Red Blood Count 5.34 M/mm3 (4.6-6.2); White Blood Count 9.1 K/mm3 (4.4-11.0)
== END 2025-06-28 20:47 | disposition home or self-care (01) ==
LOC: LAB 12:50
PROVIDERS: Nurse Practitioner Psychiatric/Mental Health; PCP Family Medicine; Referring Provider Student in an Organized Health Care Education/Training Program; Visit Provider Student in an Organized Health Care Education/Training Program
DX: Z51.81 Encounter for therapeutic drug level monitoring; F25.0 Schizoaffective disorder, bipolar type; F31.62 Bipolar disorder, current episode mixed, moderate
CPT/HCPCS: 36415; 85025

== ENCOUNTER → 2025-06-28 | Outpatient (CLI) | payer MEDICARE, MEDICAID, SELFPAY | END | disposition home or self-care (01) | LOC: PSN 10:47 | PROVIDERS: PCP Family Medicine; Referring Provider Family Medicine; Visit Provider Family Medicine | DX: R05.3 Chronic cough (principal) | CPT/HCPCS: 94060; 94726; 94729 ==

== ENCOUNTER 2025-07-19 12:34 | Outpatient (RCR) | payer MEDICARE, MEDICAID, SELFPAY ==
[2025-07-19 13:30] LABS: Hematocrit 46.2 % (40-54); Hemoglobin 15.6 g/dL (13.0-16.5); Immature Granulocytes Count 0.280 X10^3/uL (0.0-0.0); Mean Corp Hgb Conc 33.8 g/dL (32-36); Mean Corpuscular Volume 85.2 fL (80-94); Mean Platelet Vol. 10.3 fl (6.2-12.0); NRBC Flagged by Analyzer 0 % (0-5); Platelet Count 190 K/mm3 (150-450); RBC Distribution Width CV 12.4 % (11.6-14.6); RBC Distribution Width SD 38.1 fl (35.1-43.9); Red Blood Count 5.42 M/mm3 (4.6-6.2); White Blood Count 7.2 K/mm3 (4.4-11.0)
== END 2025-07-19 18:00 | disposition home or self-care (01) ==
LOC: LAB 12:34
PROVIDERS: PCP Family Medicine; Referring Provider Student in an Organized Health Care Education/Training Program; Visit Provider Student in an Organized Health Care Education/Training Program
DX: F25.0 Schizoaffective disorder, bipolar type (principal); Z51.81 Encounter for therapeutic drug level monitoring
CPT/HCPCS: 36415; 85025

== ENCOUNTER 2025-08-21 13:58 | Outpatient (RCR) | payer MEDICARE, MEDICAID, SELFPAY ==
[2025-08-21 14:43] LABS: Hematocrit 44.7 % (40-54); Hemoglobin 15.1 g/dL (13.0-16.5); Mean Corp Hgb Conc 33.8 g/dL (32-36); Mean Corpuscular Volume 84.7 fL (80-94); Mean Platelet Vol. 9.9 fl (6.2-12.0); POSITIVE COUNT YES; POSITIVE MORPHOLOGY YES; Platelet Count 183 K/mm3 (150-450); RBC Distribution Width CV 12.3 % (11.6-14.6); RBC Distribution Width SD 37.9 fl (35.1-43.9); Red Blood Count 5.28 M/mm3 (4.6-6.2); White Blood Count 7.0 K/mm3 (4.4-11.0)
[2025-08-21 14:46] LABS: Differential Indicated MANUAL DIFF
[2025-08-21 20:10] LABS: Neutrophil-Band 5 % (0-5); Neutrophil-Segmented 44 % (47-70); Total Cells Counted 100 (MANUAL DIFF)
== END 2025-08-28 18:00 | disposition home or self-care (01) ==
LOC: LAB 13:58
PROVIDERS: PCP Family Medicine; Referring Provider Student in an Organized Health Care Education/Training Program; Visit Provider Student in an Organized Health Care Education/Training Program
DX: F25.0 Schizoaffective disorder, bipolar type (principal); Z51.81 Encounter for therapeutic drug level monitoring; F31.62 Bipolar disorder, current episode mixed, moderate
CPT/HCPCS: 36415; 85025

== ENCOUNTER 2025-09-13 13:45 | Outpatient (RCR) | payer MEDICARE, MEDICAID, SELFPAY ==
[2025-09-13 14:55] LABS: Hematocrit 45.2 % (40-54); Hemoglobin 15.5 g/dL (13.0-16.5); Mean Corp Hgb Conc 34.3 g/dL (32-36); Mean Corpuscular Volume 83.9 fL (80-94); Mean Platelet Vol. 10.1 fl (6.2-12.0); POSITIVE COUNT YES; POSITIVE MORPHOLOGY YES; Platelet Count 158 K/mm3 (150-450); RBC Distribution Width CV 13.1 % (11.6-14.6); RBC Distribution Width SD 39.9 fl (35.1-43.9); Red Blood Count 5.39 M/mm3 (4.6-6.2); White Blood Count 6.4 K/mm3 (4.4-11.0)
[2025-09-13 15:09] LABS: Differential Indicated MANUAL DIFF
[2025-09-13 15:47] LABS: Neutrophil-Segmented 59 % (47-70); Total Cells Counted 100 (MANUAL DIFF)
== END 2025-09-13 18:00 | disposition home or self-care (01) ==
LOC: LAB 13:45
PROVIDERS: PCP Family Medicine; Referring Provider Student in an Organized Health Care Education/Training Program; Visit Provider Student in an Organized Health Care Education/Training Program
DX: F20.9 Schizophrenia, unspecified (principal); Z51.81 Encounter for therapeutic drug level monitoring; F31.62 Bipolar disorder, current episode mixed, moderate; F25.0 Schizoaffective disorder, bipolar type
CPT/HCPCS: 36415; 85025

== ENCOUNTER 2025-10-11 15:23 | Outpatient (RCR) | payer MEDICARE, MEDICAID, SELFPAY ==
[2025-10-11 16:21] LABS: Hematocrit 49.8 % (40-54); Hemoglobin 16.6 g/dL (13.0-16.5); Immature Granulocytes Count 0.280 X10^3/uL (0.0-0.0); Mean Corp Hgb Conc 33.3 g/dL (32-36); Mean Corpuscular Volume 84.7 fL (80-94); Mean Platelet Vol. 10.5 fl (6.2-12.0); NRBC Flagged by Analyzer 0 % (0-5); Platelet Count 141 K/mm3 (150-450); RBC Distribution Width CV 12.9 % (11.6-14.6); RBC Distribution Width SD 39.7 fl (35.1-43.9); Red Blood Count 5.88 M/mm3 (4.6-6.2); White Blood Count 10.0 K/mm3 (4.4-11.0)
== END 2025-10-27 18:00 | disposition home or self-care (01) ==
LOC: LAB 15:23
PROVIDERS: PCP Family Medicine; Referring Provider Student in an Organized Health Care Education/Training Program; Visit Provider Student in an Organized Health Care Education/Training Program
DX: Z79.899 Other long term (current) drug therapy (principal); F31.62 Bipolar disorder, current episode mixed, moderate; F20.9 Schizophrenia, unspecified; F25.0 Schizoaffective disorder, bipolar type
CPT/HCPCS: 36415; 85025

== ENCOUNTER 2025-11-16 11:14 | Outpatient (RCR) | payer MEDICARE, MEDICAID, SELFPAY ==
[2025-11-16 12:17] LABS: Valproic Acid (Depakene) Level 61 ug/mL (50-100)
== END 2025-11-16 18:00 | disposition home or self-care (01) ==
LOC: LAB 11:14
PROVIDERS: PCP Family Medicine; Referring Provider Student in an Organized Health Care Education/Training Program; Visit Provider Student in an Organized Health Care Education/Training Program
DX: Z51.81 Encounter for therapeutic drug level monitoring (principal)
CPT/HCPCS: 36415; 80164